=== PATIENT | female | born 1935 | race Caucasian/White ===

== ENCOUNTER 2018-07-18 12:15 | Outpatient (RCR) | payer MEDICARE, SELFPAY ==
--- NOTE | 2018-04-25 14:23 | PT.OIE ---
Current Diagnoses Urge incontinence (04/25/18) Past Surgical History History of cataract removal with insertion of prosthetic lens (10/26/15) History of cystoscopy History of knee replacement Status post arthroscopy Status post colonoscopy Status post dilation and curettage Status post vaginal hysterectomy Provider Visit Care Team Role Provider Type Chastity Roque DO Family Provider Physician Primary Care Provider Specialty: Family Practice Address: [address] [place] [address], [id number] Email: [email or web address] Sukumar Torres MD Attending Provider Non-Staff Specialty: Urology Address: [address] [place] [address], [id number] Email: Physical Therapy Initial Evaluation PT-OP-A Visit Information Start: 04/25/18 13:52 Freq: Status: Active Protocol: Document 04/25/18 12:15 [facility] (Rec: 04/25/18 14:23 [facility] [email or web address]) Out-Patient Physical Therapy Visit Information Visit Information Visit Type Initial Evaluation Visit Start Time 12:15 Visit Stop Time 13:00 Total Visit Minutes 45 Visit Number 1 Number of SUPPORT ANALYST Visits 0 Evaluation Information Evaluation Date 04/25/18 PT-OP-B Current Condition Start: 04/25/18 13:52 Freq: Status: Active Protocol: Document 04/25/18 12:15 [facility] (Rec: 04/25/18 14:23 [facility] [email or web address]) Current Condition History of Current Condition Onset Date initially 20 years ago Current Complaints conplaints of urinary incontinence constant leakage and sudden urge to void History of Current Condition Chelo is a 82 year old female who began having symptoms of urinary incontinence 20 years ago. She reports she has previously undergone PT with good success for her urinary symptoms but that was some time ago and she has since stopped doing her exercises. She reports she had a right knee replacement in october 2017. A month following her knee replacement she had emergency surgery for a large impacted kidney stone. She had a stent put in for 2 weeks following removal of the stone. Since that time symptoms may have worsened. She reports c/o constant leakage and she wears heavy duty pads. She can change her pads up to 6 times per day it depends on the day. She wakes 3 times per night to void. Past history includes osteoporosis, partial hysterectomy in her 40's, hx of [place]. Chelo currently does silver sneakers 2 times per week. Treatment Goals Patient/Caregiver Goals The treatment goals include decreasing urinary incontinence Current Functional Impairments (Reported) Functional Limitations- Other At this time Chelo is performing all ADL's. She is having to stop and change her pads throughout the day PT-OP-I Pelvic Floor Start: 04/25/18 13:52 Freq: Status: Active Protocol: Document 04/25/18 12:15 [facility] (Rec: 04/25/18 14:23 [facility] [email or web address]) Pelvic Floor Assessment Urine Pelvic Floor Surgery No Urinary Symptoms Urge Sensation Incomplete Emptying Leakage Cause Urge Leaks Per Day constant leakage Voiding Frequency 5-10 times per day Nocturia yes, 3 times per night Pads Used In 24 Hours up to 6 pads per day Urine Pad Type Depends Pelvic Clock Pelvic Clock 12-3 Atrophy Pelvic Clock 3-6 Atrophy Pelvic Clock 6-9 Atrophy Pelvic Clock 9-12 Atrophy SEMG (uV) Baseline 1.0 Recruitment Pattern Good Relaxation Good Holding Fair Stability of Hold Fair SEMG Stability of Rest Good Contraction Ability Voluntary Contraction Weak Voluntary Relaxation Weak Manual Muscle Testing Left 3 Manual Muscle Testing Right 3 Manual Muscle Testing Anterior 3 Manual Muscle Testing Posterior 3 Muscle Endurance (Seconds) 6 PT-OP-M Strength Start: 04/25/18 13:52 Freq: Status: Active Protocol: Document 04/25/18 12:15 [facility] (Rec: 04/25/18 14:23 [facility] [email or web address]) Hip Strength Hip Manual Muscle Testing Left Abduction 4 Good External Rotation 4 Good Right Abduction 3+ Fair+ External Rotation 3+ Fair+ PT-OP-Q Treatments Start: 04/25/18 13:52 Freq: Status: Active Protocol: Document 04/25/18 12:15 [facility] (Rec: 04/25/18 14:23 [facility] [email or web address]) Therapeutic Exercises Supine Exercises 2 Supine Exercise Name isometric ball squeeze with pelvic floor contraction Side bilateral Reps/Minutes 2 x 10 reps 1 Supine Exercise Name pelvic floor long holds Side bilateral Reps/Minutes 10 second hold 10 second relaxation 2 xms per day PT-OP-T Assessment and Plan Start: 04/25/18 13:52 Freq: Status: Active Protocol: Document 04/25/18 12:15 [facility] (Rec: 04/25/18 14:23 [facility] [email or web address]) Physical Therapy Assessment Rehab Potential Rehabilitation Potential Good Evaluation Complexity Number of Personal Factors/Comorbidities 0 Number of Body Systems Impaired 1-2 Clinical Presentation at Evaluation Stable Impairments Impairments Strength Tone Other Impairments urinary leakage Goals Three Impairment Urge incontinence symptoms Short Term Goal (STG) Chelo is educated on fully emptying her bladder when voiding, bladder retraining, and urge deference technique to help reduce urge incontinence symptoms STG Duration 5 weeks Two Impairment Decreased pelvic floor strength Resident Associate Goal (LTG) Improve pelvic floor strength with MMT and on EMG biofeedback for improved support of the bladder LTG Duration 8 weeks One Impairment Urinary leakage that is constant, Chelo is changing her pads up to 6 xms/day Resident Associate Goal (LTG) Chelo reports a decrease in urinary incontinence and is changing her pad 0-1 time per day LTG Duration 8 weeks Assessment Summary Assessment Chelo presents to physical therapy with symptoms of urinary incontinence. She notes at times she has urgency but other times she is leaking without any warning throughout the day. With examination today Chelo is able to facilitate all parts of her levator ani however her contractions are shakey and she lacks endurance. She is also weak in her hip musculature which may be contributing to her symptoms. I started her today with EMG biofeedback for pelvic floor strengthening and she tolerated this well. She is a good candidate for PT. Physical Therapy Plan Frequency and Duration Frequency of Treatment 1x/Week Duration of Treatment 8 weeks Plan of Care Start Date 04/25/18 Plan of Care End Date 06/20/18 Therapeutic Interventions Therapeutic Interventions Home Exercise Program Neuromuscular Re-education Self-Care/Home Management Therapeutic Exercises Modalities Biofeedback Next Visit Focus/Plan Next Note Type Treatment Note Next Visit Plan begin adding hip strengthening to Chelo's HEP
--- NOTE | 2018-05-08 11:58 | PT.OTN ---
Current Diagnoses Urge incontinence (05/08/18) Physical Therapy Treatment Note PT-OP-A Visit Information Start: 04/25/18 13:52 Freq: Status: Active Protocol: Document 05/08/18 09:52 [facility] (Rec: 05/08/18 09:56 [email or web address] Out-Patient Physical Therapy Visit Information Visit Information Visit Type Treatment Note Visit Start Time 09:00 Visit Stop Time 09:45 Total Visit Minutes 45 Visit Number 2 PT-OP-B Current Condition Start: 04/25/18 13:52 Freq: Status: Active Protocol: Document 04/25/18 12:15 [facility] (Rec: 04/25/18 14:23 [email or web address] Current Condition History of Current Condition Onset Date initially 20 years ago Current Complaints conplaints of urinary incontinence constant leakage and sudden urge to void History of Current Condition Chelo is a 82 year old female who began having symptoms of urinary incontinence 20 years ago. She reports she has previously undergone PT with good success for her urinary symptoms but that was some time ago and she has since stopped doing her exercises. She reports she had a right knee replacement in october 2017. A month following her knee replacement she had emergency surgery for a large impacted kidney stone. She had a stent put in for 2 weeks following removal of the stone. Since that time symptoms may have worsened. She reports c/o constant leakage and she wears heavy duty pads. She can change her pads up to 6 times per day it depends on the day. She wakes 3 times per night to void. Past history includes osteoporosis, partial hysterectomy in her 40's, hx of [place]. Chelo currently does silver sneakers 2 times per week. Treatment Goals Patient/Caregiver Goals The treatment goals include decreasing urinary incontinence Current Functional Impairments (Reported) Functional Limitations- Other At this time Chelo is performing all ADL's. She is having to stop and change her pads throughout the day PT-OP-C Subjective Start: 04/25/18 13:52 Freq: Status: Active Protocol: Document 05/08/18 09:52 [facility] (Rec: 05/08/18 09:56 [email or web address] OP-PT Subjective Patient Comments Patient Comments Chelo Spicer reports she wakes up a great deal at night and notes that she is going through more pads at night than she is during the day PT-OP-I Pelvic Floor Start: 04/25/18 13:52 Freq: Status: Active Protocol: Document 04/25/18 12:15 [facility] (Rec: 04/25/18 14:23 [facility] [email or web address]) Pelvic Floor Assessment Urine Pelvic Floor Surgery No Urinary Symptoms Urge Sensation Incomplete Emptying Leakage Cause Urge Leaks Per Day constant leakage Voiding Frequency 5-10 times per day Nocturia yes, 3 times per night Pads Used In 24 Hours up to 6 pads per day Urine Pad Type Depends Pelvic Clock Pelvic Clock 12-3 Atrophy Pelvic Clock 3-6 Atrophy Pelvic Clock 6-9 Atrophy Pelvic Clock 9-12 Atrophy SEMG (uV) Baseline 1.0 Recruitment Pattern Good Relaxation Good Holding Fair Stability of Hold Fair SEMG Stability of Rest Good Contraction Ability Voluntary Contraction Weak Voluntary Relaxation Weak Manual Muscle Testing Left 3 Manual Muscle Testing Right 3 Manual Muscle Testing Anterior 3 Manual Muscle Testing Posterior 3 Muscle Endurance (Seconds) 6 PT-OP-M Strength Start: 04/25/18 13:52 Freq: Status: Active Protocol: Document 04/25/18 12:15 [facility] (Rec: 04/25/18 14:23 [email or web address]) Hip Strength Hip Manual Muscle Testing Left Abduction 4 Good External Rotation 4 Good Right Abduction 3+ Fair+ External Rotation 3+ Fair+ PT-OP-Q Treatments Start: 04/25/18 13:52 Freq: Status: Active Protocol: Document 05/08/18 09:52 [facility] (Rec: 05/08/18 09:56 [email or web address]) Therapeutic Exercises Supine Exercises 5 Supine Exercise Name quick contractions of the pelvic floor 4 Supine Exercise Name quadraped TA isolation Comments inhale relax exhale contract 3 Supine Exercise Name roll outs with therabanc 2 Supine Exercise Name isometric ball squeeze with pelvic floor contraction Side bilateral Reps/Minutes 2 x 10 reps 1 Supine Exercise Name pelvic floor long holds Side bilateral Reps/Minutes 10 second hold 10 second relaxation 2 xms per day Self-Care/Home Management Treatment Education Patient Education Home Exercise Program Other Education education on elevating legs at night and wearing compression stockings to reduce fluid retention during the day and decrease night time voiding PT-OP-T Assessment and Plan Start: 04/25/18 13:52 Freq: Status: Active Protocol: Document 05/08/18 09:52 [facility] (Rec: 05/08/18 11:56 [email or web address]) Physical Therapy Assessment Assessment Summary Assessment I discussed with Chelo about trying compression stockings as well as elevating her feet prior to bedtime to try and reduce any fluid retention and improve her ability to stay dry at night Physical Therapy Plan Frequency and Duration Frequency of Treatment 1x/Week Duration of Treatment 8 weeks Plan of Care Start Date 04/25/18 Plan of Care End Date 06/20/18 Therapeutic Interventions Therapeutic Interventions Home Exercise Program Neuromuscular Re-education Self-Care/Home Management Therapeutic Exercises Modalities Biofeedback Next Visit Focus/Plan Next Note Type Treatment Note Next Visit Plan progress exercises as Chelo can tolerate
--- NOTE | 2018-05-16 13:52 | PT.OTN ---
Current Diagnoses Urge incontinence (05/16/18) Physical Therapy Treatment Note PT-OP-A Visit Information Start: 04/25/18 13:52 Freq: Status: Active Protocol: Document 05/08/18 09:52 [facility] (Rec: 05/08/18 09:56 [facility] [email or web address]) Out-Patient Physical Therapy Visit Information Visit Information Visit Type Treatment Note Visit Start Time 09:00 Visit Stop Time 09:45 Total Visit Minutes 45 Visit Number 2 PT-OP-B Current Condition Start: 04/25/18 13:52 Freq: Status: Active Protocol: Document 04/25/18 12:15 [facility] (Rec: 04/25/18 14:23 [facility] [email or web address]) Current Condition History of Current Condition Onset Date initially 20 years ago Current Complaints conplaints of urinary incontinence constant leakage and sudden urge to void History of Current Condition Chelo is a 82 year old female who began having symptoms of urinary incontinence 20 years ago. She reports she has previously undergone PT with good success for her urinary symptoms but that was some time ago and she has since stopped doing her exercises. She reports she had a right knee replacement in october 2017. A month following her knee replacement she had emergency surgery for a large impacted kidney stone. She had a stent put in for 2 weeks following removal of the stone. Since that time symptoms may have worsened. She reports c/o constant leakage and she wears heavy duty pads. She can change her pads up to 6 times per day it depends on the day. She wakes 3 times per night to void. Past history includes osteoporosis, partial hysterectomy in her 40's, hx of [place]. Chelo currently does silver sneakers 2 times per week. Treatment Goals Patient/Caregiver Goals The treatment goals include decreasing urinary incontinence Current Functional Impairments (Reported) Functional Limitations- Other At this time Chelo is performing all ADL's. She is having to stop and change her pads throughout the day PT-OP-C Subjective Start: 04/25/18 13:52 Freq: Status: Active Protocol: Document 05/16/18 13:47 [facility] (Rec: 05/16/18 13:51 [facility] [email or web address]) OP-PT Subjective Patient Comments Patient Comments Chelo Spicer reports she is voiding better now and is also trying to relax and take her time with voiding to completely empty PT-OP-I Pelvic Floor Start: 04/25/18 13:52 Freq: Status: Active Protocol: Document 04/25/18 12:15 [facility] (Rec: 04/25/18 14:23 [facility] [email or web address]) Pelvic Floor Assessment Urine Pelvic Floor Surgery No Urinary Symptoms Urge Sensation Incomplete Emptying Leakage Cause Urge Leaks Per Day constant leakage Voiding Frequency 5-10 times per day Nocturia yes, 3 times per night Pads Used In 24 Hours up to 6 pads per day Urine Pad Type Depends Pelvic Clock Pelvic Clock 12-3 Atrophy Pelvic Clock 3-6 Atrophy Pelvic Clock 6-9 Atrophy Pelvic Clock 9-12 Atrophy SEMG (uV) Baseline 1.0 Recruitment Pattern Good Relaxation Good Holding Fair Stability of Hold Fair SEMG Stability of Rest Good Contraction Ability Voluntary Contraction Weak Voluntary Relaxation Weak Manual Muscle Testing Left 3 Manual Muscle Testing Right 3 Manual Muscle Testing Anterior 3 Manual Muscle Testing Posterior 3 Muscle Endurance (Seconds) 6 PT-OP-M Strength Start: 04/25/18 13:52 Freq: Status: Active Protocol: Document 04/25/18 12:15 [facility] (Rec: 04/25/18 14:23 [facility] [email or web address]) Hip Strength Hip Manual Muscle Testing Left Abduction 4 Good External Rotation 4 Good Right Abduction 3+ Fair+ External Rotation 3+ Fair+ PT-OP-Q Treatments Start: 04/25/18 13:52 Freq: Status: Active Protocol: Document 05/16/18 13:47 [facility] (Rec: 05/16/18 13:51 [facility] [email or web address]) Therapeutic Exercises Supine Exercises 7 Supine Exercise Name diaphragmatic breathing 6 Supine Exercise Name pelvic clock 5 Supine Exercise Name quick contractions of the pelvic floor 4 Supine Exercise Name quadraped TA isolation Comments inhale relax exhale contract 3 Supine Exercise Name roll outs with therabanc 2 Supine Exercise Name isometric ball squeeze with pelvic floor contraction Side bilateral Reps/Minutes 2 x 10 reps 1 Supine Exercise Name pelvic floor long holds Side bilateral Reps/Minutes 10 second hold 10 second relaxation 2 xms per day Other Exercises 1 Other Exercise Name cat cow Reps/Minutes 10 reps Self-Care/Home Management Treatment Education Patient Education Home Exercise Program Other Education urge deference technique and bladder retraining education PT-OP-T Assessment and Plan Start: 04/25/18 13:52 Freq: Status: Active Protocol: Document 05/16/18 13:47 [facility] (Rec: 05/16/18 13:51 [facility] [email or web address]) Physical Therapy Assessment Assessment Summary Assessment improving max contraction of the pelvic floor and has a good handle of her exercises Physical Therapy Plan Frequency and Duration Frequency of Treatment 1x/Week Duration of Treatment 8 weeks Plan of Care Start Date 04/25/18 Plan of Care End Date 06/20/18 Therapeutic Interventions Therapeutic Interventions Home Exercise Program Neuromuscular Re-education Self-Care/Home Management Therapeutic Exercises Modalities Biofeedback Next Visit Focus/Plan Next Note Type Treatment Note Next Visit Plan progress exercises as Chelo can tolerate
--- NOTE | 2018-05-24 17:33 | PT.OTN ---
Current Diagnoses Urge incontinence (05/23/18) Physical Therapy Treatment Note PT-OP-A Visit Information Start: 04/25/18 13:52 Freq: Status: Active Protocol: Document 05/23/18 17:26 [facility] (Rec: 05/24/18 17:33 [facility] [email or web address]) Out-Patient Physical Therapy Visit Information Visit Information Visit Type Treatment Note Visit Start Time 12:15 Visit Stop Time 01:00 Total Visit Minutes 45 Visit Number 3 PT-OP-B Current Condition Start: 04/25/18 13:52 Freq: Status: Active Protocol: Document 04/25/18 12:15 [facility] (Rec: 04/25/18 14:23 [facility] [email or web address]) Current Condition History of Current Condition Onset Date initially 20 years ago Current Complaints conplaints of urinary incontinence constant leakage and sudden urge to void History of Current Condition Chelo is a 82 year old female who began having symptoms of urinary incontinence 20 years ago. She reports she has previously undergone PT with good success for her urinary symptoms but that was some time ago and she has since stopped doing her exercises. She reports she had a right knee replacement in october 2017. A month following her knee replacement she had emergency surgery for a large impacted kidney stone. She had a stent put in for 2 weeks following removal of the stone. Since that time symptoms may have worsened. She reports c/o constant leakage and she wears heavy duty pads. She can change her pads up to 6 times per day it depends on the day. She wakes 3 times per night to void. Past history includes osteoporosis, partial hysterectomy in her 40's, hx of [place]. Chelo currently does silver sneakers 2 times per week. Treatment Goals Patient/Caregiver Goals The treatment goals include decreasing urinary incontinence Current Functional Impairments (Reported) Functional Limitations- Other At this time Chelo is performing all ADL's. She is having to stop and change her pads throughout the day PT-OP-C Subjective Start: 04/25/18 13:52 Freq: Status: Active Protocol: Document 05/23/18 17:26 [facility] (Rec: 05/24/18 17:33 [facility] [email or web address]) OP-PT Subjective Patient Comments Patient Comments Chelo Spicer reports she feels as if she is doing a little better now during the day but still experiencing night time leakage PT-OP-I Pelvic Floor Start: 04/25/18 13:52 Freq: Status: Active Protocol: Document 04/25/18 12:15 [facility] (Rec: 04/25/18 14:23 [facility] [email or web address]) Pelvic Floor Assessment Urine Pelvic Floor Surgery No Urinary Symptoms Urge Sensation Incomplete Emptying Leakage Cause Urge Leaks Per Day constant leakage Voiding Frequency 5-10 times per day Nocturia yes, 3 times per night Pads Used In 24 Hours up to 6 pads per day Urine Pad Type Depends Pelvic Clock Pelvic Clock 12-3 Atrophy Pelvic Clock 3-6 Atrophy Pelvic Clock 6-9 Atrophy Pelvic Clock 9-12 Atrophy SEMG (uV) Baseline 1.0 Recruitment Pattern Good Relaxation Good Holding Fair Stability of Hold Fair SEMG Stability of Rest Good Contraction Ability Voluntary Contraction Weak Voluntary Relaxation Weak Manual Muscle Testing Left 3 Manual Muscle Testing Right 3 Manual Muscle Testing Anterior 3 Manual Muscle Testing Posterior 3 Muscle Endurance (Seconds) 6 PT-OP-M Strength Start: 04/25/18 13:52 Freq: Status: Active Protocol: Document 04/25/18 12:15 [facility] (Rec: 04/25/18 14:23 [facility] [email or web address]) Hip Strength Hip Manual Muscle Testing Left Abduction 4 Good External Rotation 4 Good Right Abduction 3+ Fair+ External Rotation 3+ Fair+ PT-OP-Q Treatments Start: 04/25/18 13:52 Freq: Status: Active Protocol: Document 05/23/18 17:26 [facility] (Rec: 05/24/18 17:33 [facility] [email or web address]) Therapeutic Exercises Supine Exercises 7 Supine Exercise Name diaphragmatic breathing 6 Supine Exercise Name pelvic clock 5 Supine Exercise Name quick contractions of the pelvic floor 4 Supine Exercise Name quadraped TA isolation Comments inhale relax exhale contract 2 Supine Exercise Name isometric ball squeeze with pelvic floor contraction Side bilateral Reps/Minutes 2 x 10 reps 1 Supine Exercise Name pelvic floor long holds Side bilateral Reps/Minutes 10 second hold 10 second relaxation 2 xms per day Other Exercises 1 Other Exercise Name cat cow Reps/Minutes 10 reps PT-OP-T Assessment and Plan Start: 04/25/18 13:52 Freq: Status: Active Protocol: Document 05/23/18 17:26 [facility] (Rec: 05/24/18 17:33 [facility] [email or web address]) Physical Therapy Assessment Assessment Summary Assessment improving pelvic floor facilitation, ball squeeze helps to facilitate the pelvic floor Physical Therapy Plan Frequency and Duration Frequency of Treatment 1x/Week Duration of Treatment 8 weeks Plan of Care Start Date 04/25/18 Plan of Care End Date 06/20/18 Therapeutic Interventions Therapeutic Interventions Home Exercise Program Neuromuscular Re-education Self-Care/Home Management Therapeutic Exercises Modalities Biofeedback Next Visit Focus/Plan Next Note Type Treatment Note Next Visit Plan progress exercises as Chelo can tolerate
--- NOTE | 2018-06-19 13:55 | PT.OTN ---
Current Diagnoses Urge incontinence (06/19/18) Physical Therapy Treatment Note PT-OP-A Visit Information Start: 04/25/18 13:52 Freq: Status: Active Protocol: Document 06/19/18 13:50 [facility] (Rec: 06/19/18 13:55 [facility] [email or web address]) Out-Patient Physical Therapy Visit Information Visit Information Visit Type Treatment Note Visit Start Time 01:00 Visit Stop Time 01:45 Total Visit Minutes 45 Visit Number 4 PT-OP-B Current Condition Start: 04/25/18 13:52 Freq: Status: Active Protocol: Document 04/25/18 12:15 [facility] (Rec: 04/25/18 14:23 [facility] [email or web address]) Current Condition History of Current Condition Onset Date initially 20 years ago Current Complaints conplaints of urinary incontinence constant leakage and sudden urge to void History of Current Condition Micheline is a 82 year old female who began having symptoms of urinary incontinence 20 years ago. She reports she has previously undergone PT with good success for her urinary symptoms but that was some time ago and she has since stopped doing her exercises. She reports she had a right knee replacement in october 2017. A month following her knee replacement she had emergency surgery for a large impacted kidney stone. She had a stent put in for 2 weeks following removal of the stone. Since that time symptoms may have worsened. She reports c/o constant leakage and she wears heavy duty pads. She can change her pads up to 6 times per day it depends on the day. She wakes 3 times per night to void. Past history includes osteoporosis, partial hysterectomy in her 40's, hx of [place]. Micheline currently does silver sneakers 2 times per week. Treatment Goals Patient/Caregiver Goals The treatment goals include decreasing urinary incontinence Current Functional Impairments (Reported) Functional Limitations- Other At this time Micheline is performing all ADL's. She is having to stop and change her pads throughout the day PT-OP-C Subjective Start: 04/25/18 13:52 Freq: Status: Active Protocol: Document 06/19/18 13:50 [facility] (Rec: 06/19/18 13:55 [facility] [email or web address]) OP-PT Subjective Patient Comments Patient Comments Micheline Spicer reports she is frustrated as her night time symptoms are still there. She is leaking quite a bit at night. PT-OP-I Pelvic Floor Start: 04/25/18 13:52 Freq: Status: Active Protocol: Document 04/25/18 12:15 [facility] (Rec: 04/25/18 14:23 [facility] [email or web address]) Pelvic Floor Assessment Urine Pelvic Floor Surgery No Urinary Symptoms Urge Sensation Incomplete Emptying Leakage Cause Urge Leaks Per Day constant leakage Voiding Frequency 5-10 times per day Nocturia yes, 3 times per night Pads Used In 24 Hours up to 6 pads per day Urine Pad Type Depends Pelvic Clock Pelvic Clock 12-3 Atrophy Pelvic Clock 3-6 Atrophy Pelvic Clock 6-9 Atrophy Pelvic Clock 9-12 Atrophy SEMG (uV) Baseline 1.0 Recruitment Pattern Good Relaxation Good Holding Fair Stability of Hold Fair SEMG Stability of Rest Good Contraction Ability Voluntary Contraction Weak Voluntary Relaxation Weak Manual Muscle Testing Left 3 Manual Muscle Testing Right 3 Manual Muscle Testing Anterior 3 Manual Muscle Testing Posterior 3 Muscle Endurance (Seconds) 6 PT-OP-M Strength Start: 04/25/18 13:52 Freq: Status: Active Protocol: Document 04/25/18 12:15 [facility] (Rec: 04/25/18 14:23 [facility] [email or web address]) Hip Strength Hip Manual Muscle Testing Left Abduction 4 Good External Rotation 4 Good Right Abduction 3+ Fair+ External Rotation 3+ Fair+ PT-OP-Q Treatments Start: 04/25/18 13:52 Freq: Status: Active Protocol: Document 06/19/18 13:50 [facility] (Rec: 06/19/18 13:55 [facility] [email or web address]) Therapeutic Exercises Supine Exercises 5 Supine Exercise Name quick contractions of the pelvic floor 3 Supine Exercise Name roll outs with therabanc 2 Supine Exercise Name isometric ball squeeze with pelvic floor contraction Side bilateral Reps/Minutes 2 x 10 reps 1 Supine Exercise Name pelvic floor long holds Side bilateral Reps/Minutes 10 second hold 10 second relaxation 2 xms per day Self-Care/Home Management Treatment Education Patient Education Home Exercise Program Other Education urge deference technique and bladder retraining education PT-OP-T Assessment and Plan Start: 04/25/18 13:52 Freq: Status: Active Protocol: Document 06/19/18 13:50 [facility] (Rec: 06/19/18 13:55 [facility] [email or web address]) Physical Therapy Assessment Assessment Summary Assessment worked a great deal on urge deference technique today with micheline. A pelvic floor re- examination was done today and she is showing improved facilitation of the levator ani. Endurance is still a limiting factor for her. She has alsdo been doing her exercises sitting and I advised her to do them laying in supine Physical Therapy Plan Frequency and Duration Frequency of Treatment 1x/Week Duration of Treatment 8 weeks Plan of Care Start Date 04/25/18 Plan of Care End Date 06/20/18 Therapeutic Interventions Therapeutic Interventions Home Exercise Program Neuromuscular Re-education Self-Care/Home Management Therapeutic Exercises Modalities Biofeedback Next Visit Focus/Plan Next Note Type Treatment Note Next Visit Plan progress exercises as Micheline can tolerate
--- NOTE | 2018-06-28 16:44 | PT.OTN ---
Current Diagnoses Urge incontinence (06/27/18) Physical Therapy Treatment Note PT-OP-A Visit Information Start: 04/25/18 13:52 Freq: Status: Active Protocol: Document 06/27/18 12:15 [facility] (Rec: 06/28/18 16:44 [facility] [email or web address]) Out-Patient Physical Therapy Visit Information Visit Information Visit Type Progress Note Visit Start Time 12:15 Visit Stop Time 01:00 Total Visit Minutes 45 Visit Number 5 Evaluation Information Evaluation Date 04/25/18 PT-OP-B Current Condition Start: 04/25/18 13:52 Freq: Status: Active Protocol: Document 04/25/18 12:15 [facility] (Rec: 04/25/18 14:23 [facility] [email or web address]) Current Condition History of Current Condition Onset Date initially 20 years ago Current Complaints conplaints of urinary incontinence constant leakage and sudden urge to void History of Current Condition Chelo is a 82 year old female who began having symptoms of urinary incontinence 20 years ago. She reports she has previously undergone PT with good success for her urinary symptoms but that was some time ago and she has since stopped doing her exercises. She reports she had a right knee replacement in october 2017. A month following her knee replacement she had emergency surgery for a large impacted kidney stone. She had a stent put in for 2 weeks following removal of the stone. Since that time symptoms may have worsened. She reports c/o constant leakage and she wears heavy duty pads. She can change her pads up to 6 times per day it depends on the day. She wakes 3 times per night to void. Past history includes osteoporosis, partial hysterectomy in her 40's, hx of [place]. Chelo currently does silver sneakers 2 times per week. Treatment Goals Patient/Caregiver Goals The treatment goals include decreasing urinary incontinence Current Functional Impairments (Reported) Functional Limitations- Other At this time Chelo is performing all ADL's. She is having to stop and change her pads throughout the day PT-OP-C Subjective Start: 04/25/18 13:52 Freq: Status: Active Protocol: Document 06/27/18 12:15 [facility] (Rec: 06/28/18 16:44 [facility] [email or web address]) OP-PT Subjective Patient Comments Patient Comments Chelo Spicer reports coffee really affects her symptoms of leakage. She has minimized her coffee and this has really helped. She only had one wet pad during the night PT-OP-I Pelvic Floor Start: 04/25/18 13:52 Freq: Status: Active Protocol: Document 04/25/18 12:15 [facility] (Rec: 04/25/18 14:23 [facility] [email or web address]) Pelvic Floor Assessment Urine Pelvic Floor Surgery No Urinary Symptoms Urge Sensation Incomplete Emptying Leakage Cause Urge Leaks Per Day constant leakage Voiding Frequency 5-10 times per day Nocturia yes, 3 times per night Pads Used In 24 Hours up to 6 pads per day Urine Pad Type Depends Pelvic Clock Pelvic Clock 12-3 Atrophy Pelvic Clock 3-6 Atrophy Pelvic Clock 6-9 Atrophy Pelvic Clock 9-12 Atrophy SEMG (uV) Baseline 1.0 Recruitment Pattern Good Relaxation Good Holding Fair Stability of Hold Fair SEMG Stability of Rest Good Contraction Ability Voluntary Contraction Weak Voluntary Relaxation Weak Manual Muscle Testing Left 3 Manual Muscle Testing Right 3 Manual Muscle Testing Anterior 3 Manual Muscle Testing Posterior 3 Muscle Endurance (Seconds) 6 PT-OP-M Strength Start: 04/25/18 13:52 Freq: Status: Active Protocol: Document 04/25/18 12:15 [facility] (Rec: 04/25/18 14:23 [facility] [email or web address]) Hip Strength Hip Manual Muscle Testing Left Abduction 4 Good External Rotation 4 Good Right Abduction 3+ Fair+ External Rotation 3+ Fair+ PT-OP-Q Treatments Start: 04/25/18 13:52 Freq: Status: Active Protocol: Document 06/27/18 12:15 [facility] (Rec: 06/28/18 16:44 [facility] [email or web address]) Therapeutic Exercises Supine Exercises 9 Supine Exercise Name templates for eccentric control and coordination 8 Supine Exercise Name pelvic floor quick contractions 7 Supine Exercise Name diaphragmatic breathing 6 Supine Exercise Name pelvic clock 5 Supine Exercise Name quick contractions of the pelvic floor 4 Supine Exercise Name quadraped TA isolation Comments inhale relax exhale contract 3 Supine Exercise Name roll outs with therabanc 2 Supine Exercise Name isometric ball squeeze with pelvic floor contraction Side bilateral Reps/Minutes 2 x 10 reps 1 Supine Exercise Name pelvic floor long holds Side bilateral Reps/Minutes 10 second hold 10 second relaxation 2 xms per day Other Exercises 1 Other Exercise Name cat cow Reps/Minutes 10 reps PT-OP-T Assessment and Plan Start: 04/25/18 13:52 Freq: Status: Active Protocol: Document 06/27/18 12:15 [facility] (Rec: 06/28/18 16:44 [facility] [email or web address]) Physical Therapy Assessment Assessment Summary Assessment Chelo Spicer has been seen for 5 visits in PT. She is just now noticing that her symptoms of leakage are decreasing especially with decreasing bladder irritant. She is showing an improvement in pelvic floor strength and would benefit from continued PT Physical Therapy Plan Frequency and Duration Frequency of Treatment 1x/Week Duration of Treatment 8 weeks Plan of Care Start Date 06/20/18 Plan of Care End Date 08/15/18 Therapeutic Interventions Therapeutic Interventions Home Exercise Program Neuromuscular Re-education Self-Care/Home Management Therapeutic Exercises Modalities Biofeedback Next Visit Focus/Plan Next Note Type Treatment Note Next Visit Plan progress exercises as Chelo can tolerate
--- NOTE | 2018-06-28 16:45 | PT.OPPOC ---
Current Diagnoses Urge incontinence (06/27/18) Provider Visit Care Team Role Provider Type Chastity Roque DO Family Provider Physician Primary Care Provider Specialty: Family Practice Address: [address] [place] [address], [id number] Email: [email or web address] Sukumar Torres MD Attending Provider Non-Staff Specialty: Urology Address: [address] [place] [address], [id number] Email: Plan Of Care PT-OP-T Assessment and Plan Start: 04/25/18 13:52 Freq: Status: Active Protocol: Document 06/27/18 12:15 [facility] (Rec: 06/28/18 16:44 [facility] [email or web address]) Physical Therapy Assessment Assessment Summary Assessment Chelo Spicer has been seen for 5 visits in PT. She is just now noticing that her symptoms of leakage are decreasing especially with decreasing bladder irritant. She is showing an improvement in pelvic floor strength and would benefit from continued PT Physical Therapy Plan Frequency and Duration Frequency of Treatment 1x/Week Duration of Treatment 8 weeks Plan of Care Start Date 06/20/18 Plan of Care End Date 08/15/18 Therapeutic Interventions Therapeutic Interventions Home Exercise Program Neuromuscular Re-education Self-Care/Home Management Therapeutic Exercises Modalities Biofeedback Next Visit Focus/Plan Next Note Type Treatment Note Next Visit Plan progress exercises as Chelo can tolerate Plan of Care Dates Plan of Care Start Date 06/20/18 Plan of Care End Date 08/15/18 Please Sign and Return: I have reviewed this Plan of Care and certify that the skilled therapy services above are required to meet the patient?s needs. Physician Signature Date Printed Name and Credentials Clinical Instructor Signature Printed Name and Credentials
--- NOTE | 2018-07-19 10:12 | PT.OTN ---
Current Diagnoses Urge incontinence (07/18/18) Physical Therapy Treatment Note PT-OP-A Visit Information Start: 04/25/18 13:52 Freq: Status: Active Protocol: Document 07/18/18 14:51 [facility] (Rec: 07/18/18 14:59 [facility] [email or web address]) Out-Patient Physical Therapy Visit Information Visit Information Visit Type Treatment Note Visit Start Time 12:15 Visit Stop Time 13:00 Total Visit Minutes 45 Visit Number 6 Evaluation Information Evaluation Date 04/25/18 PT-OP-B Current Condition Start: 04/25/18 13:52 Freq: Status: Active Protocol: Document 04/25/18 12:15 [facility] (Rec: 04/25/18 14:23 [facility] [email or web address]) Current Condition History of Current Condition Onset Date initially 20 years ago Current Complaints conplaints of urinary incontinence constant leakage and sudden urge to void History of Current Condition Chelo is a 82 year old female who began having symptoms of urinary incontinence 20 years ago. She reports she has previously undergone PT with good success for her urinary symptoms but that was some time ago and she has since stopped doing her exercises. She reports she had a right knee replacement in october 2017. A month following her knee replacement she had emergency surgery for a large impacted kidney stone. She had a stent put in for 2 weeks following removal of the stone. Since that time symptoms may have worsened. She reports c/o constant leakage and she wears heavy duty pads. She can change her pads up to 6 times per day it depends on the day. She wakes 3 times per night to void. Past history includes osteoporosis, partial hysterectomy in her 40's, hx of [place]. Chelo currently does silver sneakers 2 times per week. Treatment Goals Patient/Caregiver Goals The treatment goals include decreasing urinary incontinence Current Functional Impairments (Reported) Functional Limitations- Other At this time Chelo is performing all ADL's. She is having to stop and change her pads throughout the day PT-OP-C Subjective Start: 04/25/18 13:52 Freq: Status: Active Protocol: Document 07/18/18 14:51 [facility] (Rec: 07/18/18 14:59 [facility] [email or web address]) OP-PT Subjective Patient Comments Patient Comments Chelo Spicer reports she is still experiencing leakage especially at night. She has been out of town traveling and can tell with salty food that she retained fluid and voiding 4 xms at night. She will continue to do her exercises but is discouraged that she is still experiencing leakage PT-OP-I Pelvic Floor Start: 04/25/18 13:52 Freq: Status: Active Protocol: Document 04/25/18 12:15 [facility] (Rec: 04/25/18 14:23 [facility] [email or web address]) Pelvic Floor Assessment Urine Pelvic Floor Surgery No Urinary Symptoms Urge Sensation Incomplete Emptying Leakage Cause Urge Leaks Per Day constant leakage Voiding Frequency 5-10 times per day Nocturia yes, 3 times per night Pads Used In 24 Hours up to 6 pads per day Urine Pad Type Depends Pelvic Clock Pelvic Clock 12-3 Atrophy Pelvic Clock 3-6 Atrophy Pelvic Clock 6-9 Atrophy Pelvic Clock 9-12 Atrophy SEMG (uV) Baseline 1.0 Recruitment Pattern Good Relaxation Good Holding Fair Stability of Hold Fair SEMG Stability of Rest Good Contraction Ability Voluntary Contraction Weak Voluntary Relaxation Weak Manual Muscle Testing Left 3 Manual Muscle Testing Right 3 Manual Muscle Testing Anterior 3 Manual Muscle Testing Posterior 3 Muscle Endurance (Seconds) 6 PT-OP-M Strength Start: 04/25/18 13:52 Freq: Status: Active Protocol: Document 04/25/18 12:15 [facility] (Rec: 04/25/18 14:23 [facility] [email or web address]) Hip Strength Hip Manual Muscle Testing Left Abduction 4 Good External Rotation 4 Good Right Abduction 3+ Fair+ External Rotation 3+ Fair+ PT-OP-Q Treatments Start: 04/25/18 13:52 Freq: Status: Active Protocol: Document 07/18/18 14:51 [facility] (Rec: 07/18/18 14:59 [facility] [email or web address]) Therapeutic Exercises Supine Exercises 9 Supine Exercise Name templates for eccentric control and coordination 8 Supine Exercise Name pelvic floor quick contractions 6 Supine Exercise Name pelvic clock 5 Supine Exercise Name quick contractions of the pelvic floor 3 Supine Exercise Name roll outs with therabanc 2 Supine Exercise Name isometric ball squeeze with pelvic floor contraction Side bilateral Reps/Minutes 2 x 10 reps 1 Supine Exercise Name pelvic floor long holds Side bilateral Reps/Minutes 10 second hold 10 second relaxation 2 xms per day Other Exercises 1 Other Exercise Name cat cow Reps/Minutes 10 reps Manual Therapy Treatment Other Other Manual Treatments manual recheck of pelvic floor strength shows 3+/5 for all levator ani except anterior 3/ 5 PT-OP-T Assessment and Plan Start: 04/25/18 13:52 Freq: Status: Active Protocol: Document 07/18/18 14:51 [facility] (Rec: 07/18/18 14:59 [facility] [id number]) Physical Therapy Assessment Assessment Summary Assessment Chelo Spicer returns to PT after being out of town since the end of june. She is still experiencing leakage expecially at night. I have talked to her about working on regular voiding intervals every 2.5 to 3 hours during the day and elevating her feel at night prior to bed as she may be retaining fluid during the day causing her to void more at night. With pelvic floor examination today she is showing some improvement with her strength. SHe also does not seem to leak with activity. She will continue with her exercises but will discharge from PT at this time . She will follow up with urology the end of this month Physical Therapy Plan Discharge Physical Therapy Discharge Comments Discharge PT at this time and Chelo has shown independence with her home exercise program
== END 2018-10-31 14:17 ==
LOC: PHYS 12:15
PROVIDERS: Family Provider Family Medicine; PCP Family Medicine; Visit Provider Urology
DX: N39.41 Urge incontinence (principal)
CPT/HCPCS: 97110; 97161; 97535

== ENCOUNTER → 2018-09-08 07:50 | Outpatient (CLI) | payer MEDICARE, SELFPAY ==
--- NOTE | 2018-09-08 | DI.MG.S_ITS ---
BILATERAL DIGITAL SCREENING MAMMOGRAM 3D/2D WITH CAD: 09/08/2018 CLINICAL: Routine screening. Family history of breast cancer. Comparison is made to exams dated: 08/17/2017 mammogram, 08/08/2016 mammogram, and 05/21/2015 mammogram - [facility]. There are scattered fibroglandular elements in both breasts. Current study was also evaluated with a Computer Aided Detection (CAD) system. No significant masses, calcifications, or other findings are seen in either breast. There has been no significant interval change. IMPRESSION: NEGATIVE There is no mammographic evidence of malignancy. A 1 year screening mammogram is recommended. This exam was interpreted at Station ID: [id number]. NOTE: For mammograms, a report in lay terms will be sent to the patient. Approximately 15% of breast malignancies will not be visualized mammographically. In the management of a palpable breast mass, a negative mammogram must not discourage biopsy of a clinically suspicious lesion. Electronically Signed By: Suzie her/josh:09/10/2018 09:29:55 copy to: Romana Quintero letter sent: Normal Exam ACR BI-RADS Category 1: Negative [id number]
== END ==
PROVIDERS: PCP Family Medicine; Visit Provider Family Medicine
DX: Z12.31 Encounter for screening mammogram for malignant neoplasm of breast (principal); Z80.3 Family history of malignant neoplasm of breast
CPT/HCPCS: 77063; 77067

== ENCOUNTER → 2019-03-20 12:46 | Outpatient (CLI) | payer MEDICARE, SELFPAY ==
--- NOTE | 2019-03-20 12:47 | DI.CT.S_ITS ---
PROCEDURE: CT HEAD/BRAIN WO CON INDICATIONS: vertigo, double vision, headache TECHNIQUE: Noncontrast 4.5 mm thick angled axial sections acquired from the foramen magnum to the vertex, with coronal and sagittal reformats. For radiation dose reduction, the following was used: automated exposure control, adjustment of mA and/or kV according to patient size. COMPARISON: None. FINDINGS: Image quality: Excellent. CSF spaces: Basal cisterns are patent. No extra-axial fluid collections. The ventricles are symmetric in size and shape. Brain: No intracranial bleeds or masses. There is cerebral volume loss for age, with resultant ventricular and sulcal prominence. There are periventricular and deep white matter chronic small vessel ischemic changes. There is intracranial internal carotid artery atherosclerosis. Skull and face: Calvarium and visualized facial bones appear intact, without suspicious lesions. Sinuses: Visualized sinuses and mastoids are clear. IMPRESSION: 1. No acute intracranial disease process. 2. Mild, diffuse cerebral volume loss. 3. Mild periventricular and subcortical white matter chronic microvascular ischemic changes. Dictated by: Deborah Duval MD, PhD on 03/20/2019 at 13:22 Approved by: Deborah Duval MD, PhD on 03/20/2019 at 13:25
== END ==
PROVIDERS: PCP Family Medicine; Visit Provider Family Medicine
DX: R42 Dizziness and giddiness (principal); H53.2 Diplopia; R51 Headache
CPT/HCPCS: 70450

== ENCOUNTER → 2019-08-19 08:52 | Outpatient (CLI) | payer MEDICARE, SELFPAY | PROVIDERS: PCP Family Medicine; Visit Provider Physician Assistant | DX: R30.0 Dysuria (principal) | CPT/HCPCS: 87077; 87086; 87186 ==

== ENCOUNTER → 2019-09-12 11:38 | Outpatient (CLI) | payer MEDICARE, SELFPAY ==
--- NOTE | 2019-09-12 | DI.MG.S_ITS ---
BILATERAL DIGITAL SCREENING MAMMOGRAM 3D/2D WITH CAD: 09/12/2019 CLINICAL: Routine screening. Family history of breast cancer. Comparison is made to exams dated: 09/08/2018 mammogram, 08/17/2017 mammogram, 08/08/2016 mammogram, 05/21/2015 mammogram, 05/19/2014 mammogram, and 05/16/2013 mammogram - [facility]. There are scattered fibroglandular elements in both breasts. Current study was also evaluated with a Computer Aided Detection (CAD) system. No significant masses, calcifications, or other findings are seen in either breast. There has been no significant interval change. IMPRESSION: NEGATIVE There is no mammographic evidence of malignancy. A 1 year screening mammogram is recommended. This exam was interpreted at Station ID: [id number]. NOTE: For mammograms, a report in lay terms will be sent to the patient. Approximately 15% of breast malignancies will not be visualized mammographically. In the management of a palpable breast mass, a negative mammogram must not discourage biopsy of a clinically suspicious lesion. Electronically Signed By: Heide natarajan/josh:09/12/2019 12:37:10 copy to: Tacho Hampton letter sent: Normal Exam ACR BI-RADS Category 1: Negative [id number]
== END ==
PROVIDERS: PCP Family Medicine; Visit Provider Family Medicine
DX: Z12.31 Encounter for screening mammogram for malignant neoplasm of breast (principal); Z80.3 Family history of malignant neoplasm of breast
CPT/HCPCS: 77063; 77067

== ENCOUNTER → 2019-09-26 09:38 | Outpatient (CLI) | payer MEDICARE, SELFPAY | PROVIDERS: PCP Family Medicine; Visit Provider Nurse Practitioner | DX: R30.0 Dysuria (principal) | CPT/HCPCS: 87077; 87086; 87186 ==

== ENCOUNTER → 2020-05-29 10:49 | Outpatient (CLI) | payer MEDICARE, SELFPAY ==
[2020-05-29 11:03] LABS: RBC Urine None Seen (0-5/HPF)
[2020-05-29 11:59] LABS: Appearance Urine UA CLEAR; Bilirubin Urine UA NEGATIVE (NEGATIVE); Color Urine UA YELLOW; Glucose Urine UA NEGATIVE (Negative); Ketones Urine UA NEGATIVE (NEGATIVE); Leukocyte Esterase Urine UA 2+ (NEGATIVE); Nitrite Urine UA NEGATIVE (Negative); Occult Blood Urine UA NEGATIVE (Negative); Protein Urine UA NEGATIVE (Negative); Specific Gravity Urine UA 1.015 (1.000-1.035); Urobilinogen Urine UA 0.2 E.U./dL (0.2)
[2020-05-29 12:06] LABS: Bacteria Urine Many (>30); Culture Indicated Urine Specimen Cultured; WBC Urine 5-10/HPF (0-5/HPF)
== END ==
PROVIDERS: PCP Family Medicine; Referring Provider Urology; Visit Provider Urology
DX: N39.0 Urinary tract infection, site not specified (principal)
CPT/HCPCS: 81001; 87077; 87086; 87186

== ENCOUNTER 2020-06-17 09:40 | Emergency (ER) | payer MEDICARE, SELFPAY ==
[2020-06-17] VITALS (12 sets, daily range): BP systolic 132–151; BP diastolic 62–76; PULSE 54–66; RESP 15–39; TEMP 36.9; O2SAT 95–98; BMI 22.4
--- NOTE | 2020-06-17 10:04 | DI.RAD.S_ITS ---
PROCEDURE: XR CHEST 1V INDICATIONS: chest pain TECHNIQUE: One view of the chest was acquired. COMPARISON: [facility], , CHEST 2 VIEW, 02/05/2015, 11:29. FINDINGS: Surgical changes and devices: None. Lungs and pleura: Lungs are clear. No pleural effusions or pneumothorax. Mediastinum: Mediastinal contours appear normal. Heart size is normal. Bones and chest wall: No suspicious bony lesions. Overlying soft tissues appear unremarkable. IMPRESSION: Stable radiographic evaluation of the chest without acute cardiopulmonary abnormalities or focal airspace disease. There are no imaging findings to explain patient's chest pain. Dictated by: Dylan Pichardo M.D. on 06/17/2020 at 10:24 Approved by: Dylan Pichardo M.D. on 06/17/2020 at 10:24
[2020-06-17 10:14] LABS: Prothrombin Time 11.4 SECONDS (10.1-12.7)
[2020-06-17 10:16] LABS: PTT Partial Thromboplastin Tim 31 SECONDS (26.4-36.2)
[2020-06-17 10:20] LABS: Alanine Aminotransferase 22 IU/L (<35); Albumin 4.2 g/dL (3.5-5.0); Albumin Globulin Ratio 1.2 (1.0-2.8); Alkaline Phosphatase 106 U/L (38-126); Aspartate Aminotransferase 36 IU/L (14-36); Bilirubin Total 0.4 mg/dL (0.2-1.3); Blood Urea Nitrogen 19 mg/dL (7-17); Calcium 9.5 mg/dL (8.4-10.2); Carbon Dioxide 28 mmol/L (22-32); Chloride 106 mmol/L (98-107); Creatine Kinase 47 U/L (30-135); Estimated Glomerular Filt Rate > 60.0 mL/min (>60); Globulin 3.6 g/dL (1.7-4.1); Glucose 86 mg/dL (80-110); HEMOLYSIS 26 (0-50); Lipase 155 U/L (23-300); Potassium 4.2 mmol/L (3.4-5.1); Sodium 140 mmol/L (137-145); Total Protein 7.8 g/dL (6.3-8.2)
[2020-06-17] MEDS: ASPIRIN 81 MG CHEW TAB 324 MG PO (10:24)
[2020-06-17 10:31] LABS: Troponin I < 0.012 ng/mL (0.01-0.034)
--- NOTE | 2020-06-17 10:31 | ED_ITS ---
HPI - Chest Pain General Chief Complaint: Chest Pain Stated Complaint: chest pain for 3 hours Time Seen by Provider: 06/17/20 10:31 History of Present Illness HPI narrative: 84-year-old woman with distant history of myocardial infarction, hypertension who presents with 3 hours of right sided lateral chest pain relieved with pressure up against the ribcage. She describes no palpitations, no fevers, no cough. No upper abdominal pain or flank pain. She does note that she has had some suprapubic tenderness and urinary frequency is currently being treated with Septra for UTI. Also complains of vaginal prolapse and has gynecologic follow-up scheduled soon. Related Data Previous Rx's Medication Instructions Recorded nitroglycerin [Nitrostat] 0.4 mg SUBLINGUAL PRN #25 05/23/13 Disabled Parking Permit ea #1 10/24/17 aspirin 81 mg tablet,delayed 81 mg PO DAILY #90 tab 05/02/18 release cholecalciferol (vitamin D3) 50 2,000 unit PO DAILY #90 cap 05/02/18 mcg (2,000 unit) capsule multivitamin 1 tab PO DAILY #90 tab 05/02/18 losartan 50 mg tablet 50 mg PO QDAY #90 tab 02/10/20 amlodipine 5 mg tablet See Rx Instructions PO QDAY #90 tab 06/05/20 sulfamethoxazole 800 1 tab PO BID 7 Days #14 tab 06/15/20 mg-trimethoprim 160 mg tablet Allergies Allergy/AdvReac Type Severity Reaction Status Date / Time neomycin Allergy Mild ITCHING Verified 06/15/20 10:39 Penicillins Allergy Mild RASH, GI Verified 06/15/20 10:39 UPSET morphine AdvReac Mild INTOLERANT Verified 06/15/20 10:39 Review of Systems Review of Systems Narrative: Pertinent positive and negative findings as per HPI Remainder of review of systems is otherwise unremarkable for Constitutional: Fevers, chills, weakness ENT: No sore throat, neck pain, ear pain CV: palpitations, dyspnea on exertion Respiratory: Cough, wheeze, dyspnea GI: Nausea, vomiting, diarrhea, change in bowel habits, black or bloody stools MS: Muscle weakness, numbness, joint swelling or warmth Skin: Rashes, nonhealing lesions Neuro: Syncope, dizziness, tingling Patient History Medical History Chicken pox (Resolved ~194) Coronary artery disease (Chronic ~2005) Headache (Chronic ~2009) Hearing deficit (Chronic) History of urinary incontinence (Chronic ~1999) Hyperlipidemia (Chronic) Hypertension (Chronic ~1979) Mumps (Resolved ~1944) Osteoarthritis (Chronic ~1999) Osteoporosis (Chronic) Ruptured tympanic membrane (Chronic ~1989) Skin cancer (Chronic ~2006) Tinnitus (Chronic ~1979) Vision disorder (Chronic) Surgical History History of cataract removal with insertion of prosthetic lens (10/26/15) History of cystoscopy (~2012) History of eye surgery (Resolved ~1979) History of knee replacement (~2017) History of vein stripping (Resolved ~1977) Status post arthroscopy (~01/2013) Status post colonoscopy (~12/2003) Status post dilation and curettage (~1957) Status post vaginal hysterectomy (~1978) Ureteral stone (Resolved ~2014) Family History Father No problems noted. Grandfather No problems noted. Grandmother No problems noted. Mother No problems noted. Grandfather No problems noted. Grandmother No problems noted. Social History marital status: household members: none lives independently: Yes caregiver/support person: Yes (son and daughter in law live across the street ) housing: house occupational status: unemployed (retired) Smoking Status: Former smoker alcohol intake: never substance use type: does not use Smoking Status: Former smoker alcohol intake frequency: 0-2 drinks per day Substance Use Type: does not use Exam Narrative Exam Narrative: General: Healthy appearing, in no acute distress. Able to give a complete and coherent history. Well-nourished well-developed HEENT: Moist mucous membranes, normal sclera with reactive pupils, Neck: No JVD, supple Respiratory: Lungs are clear to auscultation, no wheezing no rales no rhonchi. Full and symmetrical air movement. Tenderness right mid axillary area without any skin changes no underlying rub and pain is slightly relieved with external pressure Cardiac: Regular rate and rhythm no murmurs no bruits Abdomen: Soft nontender good bowel tones, no flank pain Skin: Warm and dry, no rashes Neurologic: Grossly neurologically intact with no obvious asymmetries or abnormalities Extremities: No trauma, well perfused Psych: Cooperative, appropriate insight and affect Initial Vital Signs Initial Vital Signs: Vital Signs Temperature 98.5 F 06/17/20 09:54 Pulse Rate 63 06/17/20 09:54 Respiratory Rate 16 06/17/20 09:54 Blood Pressure 144/66 H 06/17/20 09:54 Pulse Oximetry 98 06/17/20 09:54 Course Orders Ordered: ED Orders 06/17/20 10:00 Complete Blood Count AUTO DIFF Stat Comprehensive Metabolic Panel Stat Lipase Stat Partial Thromboplastin Time Stat Prothrombin Time INR Stat Troponin & CK Cardiac Panel Stat 06/17/20 10:04 XR chest 1V Stat EKG-12 Lead Stat Discontinued Medications Aspirin (Aspirin Chew) 324 mg PO NOW ONE Stop: 06/17/20 10:05 Last Admin: 06/17/20 10:24 Dose: 324 mg Documented by: YURI Ketorolac Tromethamine (Toradol) 15 mg IV NOW ONE Stop: 06/17/20 11:08 Last Admin: 06/17/20 11:21 Dose: 15 mg Documented by: HUGO Vital Signs Vital signs: Vital Signs - 8 hr 06/17/20 09:54 06/17/20 10:04 06/17/20 10:15 Temperature 98.5 F Pulse Rate 63 62 64 Respiratory Rate 16 20 21 Blood Pressure 144/66 H 132/63 Pulse Oximetry 98 98 98 06/17/20 10:30 06/17/20 10:45 06/17/20 11:24 Temperature Pulse Rate 58 L 65 63 Respiratory Rate 23 26 H 21 Blood Pressure 137/62 Pulse Oximetry 06/17/20 11:25 06/17/20 11:30 06/17/20 11:45 Temperature Pulse Rate 62 66 63 Respiratory Rate 28 H 39 H 20 Blood Pressure 151/76 H Pulse Oximetry 95 98 98 MDM - Chest Pain Medical Records Data Attestation: I reviewed the patient's medical records. Lab Data Attestation: I reviewed the patient's lab results. Result diagrams: 06/17/20 10:00 06/17/20 10:00 Labs: Lab Results 06/17/20 06/17/20 06/17/20 Range/Units 10:00 10:00 10:00 WBC 8.4 (4.5-11.0) X10^3/uL RBC 4.24 (4.0-5.2) X10^6/uL Hgb 12.7 (12.0-16.0) g/dL Hct 38.6 (36-46) % MCV 91.2 (80-100) fL MCH 30.0 (26-34) PG MCHC 32.9 (30-36) % RDW 13.4 (11.6-14.8) % Plt Count 381 (150-400) X10^3/uL Neut % (Auto) 71.1 (50-75) % Lymph % (Auto) 19.8 L (25-40) % Gonzales % (Auto) 7.7 (3-14) % Eos % (Auto) 0.5 L (2-4) % Baso % (Auto) 0.9 (0-2) % Neut # (Auto) 5900 (9198-5606) /uL Lymph # (Auto) 1700 (8421-5440) /uL Gonzales # (Auto) 600 (0-900) /uL Eos # (Auto) 0 (0-450) /uL Baso # (Auto) 100 (0-100) /uL PT 11.4 (10.1-12.7) SECONDS INR 1.0 (0.9-1.3) APTT 31 (26.4-36.2) SECONDS Sodium 140 (137-145) mmol/L Potassium 4.2 (3.4-5.1) mmol/L Chloride 106 (98-107) mmol/L Carbon Dioxide 28 (22-32) mmol/L BUN 19 H (7-17) mg/dL Creatinine 0.73 (0.52-1.04) mg/dL Estimated GFR > 60.0 (>60) mL/min BUN/Creatinine Ratio 26.0 H (6-22) Glucose 86 (80-110) mg/dL Calcium 9.5 (8.4-10.2) mg/dL Total Bilirubin 0.4 (0.2-1.3) mg/dL AST 36 (14-36) IU/L ALT 22 (<35) IU/L Alkaline Phosphatase 106 (38-126) U/L Total Creatine Kinase 47 (30-135) U/L CK-MB (CK-2) TNP CK-MB (CK-2) Rel Index TNP Troponin I < 0.012 (0.01-0.034) ng/mL Total Protein 7.8 (6.3-8.2) g/dL Albumin 4.2 (3.5-5.0) g/dL Globulin 3.6 (1.7-4.1) g/dL Albumin/Globulin Ratio 1.2 (1.0-2.8) Lipase 155 (23-300) U/L Imaging Data Chest x-ray: Radiologist's Impression: FINDINGS: Surgical changes and devices: None. Lungs and pleura: Lungs are clear. No pleural effusions or pneumothorax. Mediastinum: Mediastinal contours appear normal. Heart size is normal. Bones and chest wall: No suspicious bony lesions. Overlying soft tissues appear unremarkable. IMPRESSION: Stable radiographic evaluation of the chest without acute cardi opulmonary abnormalities or focal airspace disease. There are no imaging findings to explain patient's chest pain. Dictated by: Dylan Pichardo M.D. on 06/17/2020 at 10:24 ECG Data Attestation: I personally reviewed and interpreted this ECG as follows: Interpretation: Sinus rhythm at a rate of 62 Normal axis, normal intervals Nonspecific ST T wave changes without any evidence of acute ischemia MDM Narrative Medical decision making narrative: 84-year-old woman who presents with 3 hours of right-sided chest/mid axillary pain. X-ray does not suggest pneumothorax her underlying infiltrate. Labs are reassuring. No underlying cardiac etiology is noted. Pain is improved with Toradol. At this point do not suspect acute cor onary syndrome, pulmonary embolism, sepsis or pneumonia. Most likely diagnosis is musculoskeletal chest pain she is reassured and discharged home Discharge Plan Departure Prescriptions: No Action sulfamethoxazole-trimethoprim [Bactrim DS] 800-160 mg tablet 1 tab PO BID 7 Days Qty: 14 RF: 0 nitroglycerin [Nitrostat] 0.4 MG tablet, sublingual 0.4 mg Sublingual PRN Qty: 25 RF: 12 Disabled Parking Permit Qty: 1 RF: 0 losartan 50 mg tablet 50 mg PO QDAY Qty: 90 RF: 3 amlodipine [Norvasc] 5 mg tablet See Rx Instructions PO QDAY Qty: 90 RF: 0 cholecalciferol (vitamin D3) 2,000 unit capsule 2,000 unit PO DAILY Qty: 90 RF: 0 aspirin 81 mg tablet,delayed release (DR/EC) 81 mg PO DAILY Qty: 90 RF: 0 Hold Instructions: pt stopped due to bruising multivitamin [Multiple Vitamins] tablet 1 tab PO DAILY Qty: 90 RF: 0
[2020-06-17 10:49] LABS: Add Manual Diff / Slide Review NO; Basophils Absolute Auto 100 /uL (0-100); Basophils Percent Auto 0.9 % (0-2); Eosinophils Absolute Auto 0 /uL (0-450); Eosinophils Percent Auto 0.5 % (2-4); Hematocrit 38.6 % (36-46); Hemoglobin 12.7 g/dL (12.0-16.0); Lymphocytes Absolute Auto 1700 /uL (1100-4500); Lymphocytes Percent Auto 19.8 % (25-40); Mean Corpuscular HGB Conc 32.9 % (30-36); Mean Corpuscular Volume 91.2 fL (80-100); Monocytes Absolute Auto 600 /uL (0-900); Monocytes Percent Auto 7.7 % (3-14); Neutrophils Absolute Auto 5900 /uL (1500-7000); Neutrophils Percent Auto 71.1 % (50-75); Platelet Count 381 X10^3/uL (150-400); Red Blood Cell Count 4.24 X10^6/uL (4.0-5.2); Red Cell Distribution Width 13.4 % (11.6-14.8); White Blood Cell Count 8.4 X10^3/uL (4.5-11.0)
[2020-06-17] MEDS: KETOROLAC 60 MG/2 ML VIAL 15 MG IV (11:21)
== END 2020-06-17 12:32 | disposition home or self-care (01) ==
PROVIDERS: Emergency Provider Emergency Medicine; PCP Family Medicine; Referring Provider Emergency Medicine
DX: R07.89 Other chest pain (principal); I25.2 Old myocardial infarction; I10 Essential (primary) hypertension
CPT/HCPCS: 36415; 71045; 80053; 82550; 83690; 84484; 85025; 85610; 85730; 93005; 93010; 96374; 99284; J1885

== ENCOUNTER → 2020-06-24 08:22 | Outpatient (CLI) | payer MEDICARE, SELFPAY ==
--- NOTE | 2020-06-24 | DI.RAD.S_ITS ---
PROCEDURE: XR ABDOMEN 1V INDICATIONS: KIDNEY STONE TECHNIQUE: One view of the abdomen acquired. COMPARISON: [facility], CR, XR ABDOMEN 1 VIEW, 09/05/2019, 13:48. FINDINGS: Surgical changes and devices: Spinal stimulator is noted. Bowel: Bowel gas pattern is normal. Significant stool is present. Soft tissues: No suspicious abdominal calcifications. Visualized liver shadow appears enlarged. Bones: No suspicious bony lesions. Mild rightward curvature is present within the lumbar spine with apex at L2. IMPRESSION: Significant stool consistent with constipation. No calcifications are noted overlying the renal shadows. Dictated by: Clara Lopez M.D. on 06/24/2020 at 14:39 Approved by: Clara Lopez M.D. on 06/24/2020 at 15:00
== END ==
PROVIDERS: PCP Family Medicine; Referring Provider Urology; Visit Provider Urology
DX: N20.0 Calculus of kidney (principal)
CPT/HCPCS: 74018

== ENCOUNTER → 2020-07-20 10:12 | Outpatient (CLI) | payer MEDICARE, SELFPAY ==
[2020-07-20 11:26] LABS: Appearance Urine UA CLOUDY; Bilirubin Urine UA NEGATIVE (NEGATIVE); Color Urine UA YELLOW; Glucose Urine UA NEGATIVE (Negative); Ketones Urine UA NEGATIVE (NEGATIVE); Leukocyte Esterase Urine UA 3+ (NEGATIVE); Nitrite Urine UA POSITIVE (Negative); Occult Blood Urine UA TRACE-INTACT (Negative); Protein Urine UA NEGATIVE (Negative); Urobilinogen Urine UA 0.2 E.U./dL (0.2)
[2020-07-20 12:00] LABS: Amorphous Sediment Urine 2+; Bacteria Urine Many (>30); Culture Indicated Urine Specimen Cultured; RBC Urine 10-30/HPF (0-5/HPF); Squamous Epithelial Cell Urine 1-5 /HPF (0-5/HPF); WBC Urine >100/HPF (0-5/HPF)
== END ==
PROVIDERS: PCP Family Medicine; Referring Provider Obstetrics & Gynecology; Visit Provider Obstetrics & Gynecology
DX: R30.0 Dysuria (principal); R35.0 Frequency of micturition; R39.15 Urgency of urination; R82.90 Unspecified abnormal findings in urine
CPT/HCPCS: 81001; 87077; 87086; 87186

== ENCOUNTER → 2020-10-24 08:14 | Outpatient (CLI) | payer MEDICARE, SELFPAY ==
--- NOTE | 2020-10-24 08:16 | DI.MG.S_ITS ---
BILATERAL DIGITAL SCREENING MAMMOGRAM 3D/2D WITH CAD: 10/24/2020 CLINICAL: Routine screening. Family history of breast cancer. Comparison is made to exams dated: 09/12/2019 mammogram, 09/08/2018 mammogram, and 08/17/2017 mammogram - [facility]. There are scattered fibroglandular elements in both breasts. Current study was also evaluated with a Computer Aided Detection (CAD) system. No significant masses, calcifications, or other findings are seen in either breast. There has been no significant interval change. IMPRESSION: NEGATIVE There is no mammographic evidence of malignancy. A 1 year screening mammogram is recommended. This exam was interpreted at Station ID: [id number]. NOTE: For mammograms, a report in lay terms will be sent to the patient. Approximately 15% of breast malignancies will not be visualized mammographically. In the management of a palpable breast mass, a negative mammogram must not discourage biopsy of a clinically suspicious lesion. Electronically Signed By: Dylan martin/josh:10/26/2020 07:19:02 copy to: Tacho Hampton letter sent: Normal Exam ACR BI-RADS Category 1: Negative [id number]
== END ==
PROVIDERS: PCP Family Medicine; Referring Provider Family Medicine; Visit Provider Family Medicine
DX: Z12.31 Encounter for screening mammogram for malignant neoplasm of breast (principal); Z80.3 Family history of malignant neoplasm of breast
CPT/HCPCS: 77063; 77067

== ENCOUNTER → 2020-10-27 07:36 | Outpatient (CLI) | payer MEDICARE, SELFPAY ==
[2020-10-27 07:44] LABS: RBC Urine None Seen (0-5/HPF)
[2020-10-27 08:38] LABS: Appearance Urine UA SL CLOUDY; Bilirubin Urine UA NEGATIVE (NEGATIVE); Color Urine UA YELLOW; Glucose Urine UA NEGATIVE (Negative); Ketones Urine UA NEGATIVE (NEGATIVE); Leukocyte Esterase Urine UA 3+ (NEGATIVE); Nitrite Urine UA NEGATIVE (Negative); Occult Blood Urine UA TRACE-LYSED (Negative); Protein Urine UA NEGATIVE (Negative); Specific Gravity Urine UA 1.015 (1.000-1.035); Urobilinogen Urine UA 0.2 E.U./dL (0.2)
[2020-10-27 08:46] LABS: Bacteria Urine Many (>30); Culture Indicated Urine Cult Not Indicated; Squamous Epithelial Cell Urine 5-10 /HPF (0-5/HPF); WBC Urine 10-30/HPF (0-5/HPF)
== END ==
PROVIDERS: PCP Family Medicine; Referring Provider Family Medicine; Visit Provider Physician Assistant Medical
DX: Z87.440 Personal history of urinary (tract) infections (principal)
CPT/HCPCS: 81001

== ENCOUNTER → 2020-11-10 15:53 | Outpatient (CLI) | payer MEDICARE, SELFPAY ==
[2020-11-10 16:15] LABS: COVID19 -Nasal RAPID Negative (Negative)
== END ==
PROVIDERS: PCP Family Medicine; Visit Provider Physician Assistant
DX: R53.83 Other fatigue (principal); Z20.822 Contact with and (suspected) exposure to COVID-19
CPT/HCPCS: 87635

== ENCOUNTER → 2020-12-23 14:31 | Outpatient (CLI) | payer MEDICARE, SELFPAY ==
[2020-12-23 15:25] LABS: Appearance Urine UA CLOUDY; Bilirubin Urine UA NEGATIVE (NEGATIVE); Color Urine UA YELLOW; Glucose Urine UA NEGATIVE (Negative); Ketones Urine UA NEGATIVE (NEGATIVE); Leukocyte Esterase Urine UA 2+ (NEGATIVE); Nitrite Urine UA POSITIVE (Negative); Occult Blood Urine UA 3+ (Negative); Protein Urine UA TRACE (Negative); Urobilinogen Urine UA 0.2 E.U./dL (0.2)
[2020-12-23 15:28] LABS: pH Urine UA 6.5 (4.5-8.0)
[2020-12-23 15:33] LABS: Bacteria Urine Many (>30); Culture Indicated Urine Specimen Cultured; RBC Urine 10-30/HPF (0-5/HPF); WBC Urine 1-5/HPF (0-5/HPF)
== END ==
PROVIDERS: PCP Family Medicine; Referring Provider Physician Assistant Medical; Visit Provider Physician Assistant Medical
DX: Z87.440 Personal history of urinary (tract) infections (principal); R35.0 Frequency of micturition
CPT/HCPCS: 81001; 87077; 87086; 87186

== ENCOUNTER → 2021-01-01 14:58 | Outpatient (CLI) | payer MEDICARE, SELFPAY | PROVIDERS: PCP Family Medicine; Visit Provider Physician Assistant | DX: R30.0 Dysuria (principal) | CPT/HCPCS: 87077; 87086; 87186 ==

== ENCOUNTER → 2021-05-26 09:07 | Outpatient (CLI) | payer MEDICARE, SELFPAY ==
--- NOTE | 2021-05-26 | DI.RAD.S_ITS ---
PROCEDURE: XR LUMBAR SPINE 2-3V INDICATIONS: CHRONIC LOW BACK PAIN TECHNIQUE: 3 views of the lumbar spine were acquired. COMPARISON: [facility], CR, XR ABDOMEN 1V, 06/24/2020, 7:33. FINDINGS: Bones: 5 [id number] vertebrae are present. There is dextroscoliotic bony alignment, moderate in severity, centered at the thoracolumbar junction. No vertebral body compression fractures. No suspicious bony lesions. [id number] degenerative disc disease along the lumbosacral spine best seen over the lower half and there is moderate facet osteoarthritis from L3 inferiorly with likelihood of secondary spinal and foraminal stenosis. A right sided electronic control device is again seen leading towards the area beneath the inferior aspect of the left sacroiliac joint. Soft tissues: Overlying bowel gas pattern is normal. No suspicious soft tissue calcifications. IMPRESSION: Chronic moderate levoscoliosis centered at the thoracolumbar junction with moderate degenerative disc disease and facet osteoarthritis most prominent over the lower half of the lumbosacral spine with likelihood of spinal and foraminal stenosis in that area as a result. Electrode/electronic control device stable over time. Dictated by: Yobani Landis M.D. on 05/26/2021 at 10:50 Approved by: Yobani Landis M.D. on 05/26/2021 at 10:52
== END ==
PROVIDERS: PCP Family Medicine; Referring Provider Chiropractor; Visit Provider Chiropractor
DX: M54.5 Low back pain (principal); M41.85 Other forms of scoliosis, thoracolumbar region; M51.36 Other intervertebral disc degeneration, lumbar region; M47.816 Spondylosis without myelopathy or radiculopathy, lumbar region; G89.29 Other chronic pain
CPT/HCPCS: 72100

== ENCOUNTER → 2021-09-03 15:52 | Outpatient (CLI) | payer MEDICARE, SELFPAY ==
--- NOTE | 2021-09-03 15:53 | DI.RAD.S_ITS ---
PROCEDURE: XR HAND LT MIN 3V INDICATIONS: hand pain TECHNIQUE: 3 views of the hand(s) acquired. COMPARISON: [facility], CR, XR WRIST 1 OR 2 VIEWS LEFT, 09/02/2021, 10:40. FINDINGS: A splint is present, obscuring fine bony detail. Bones: There is increased, moderate displacement of the comminuted distal radial fracture with articular surface extension. No change in mildly displaced ulnar styloid base fracture. Soft tissues: No suspicious soft tissue calcifications. IMPRESSION: Increased displacement of distal radial fracture. Dictated by: Jose D Christopher M.D. on 09/03/2021 at 16:15 Approved by: Jose D Christopher M.D. on 09/03/2021 at 16:16
== END ==
PROVIDERS: PCP Family Medicine; Referring Provider Nurse Practitioner Family; Visit Provider Nurse Practitioner Family
DX: S52.502A Unspecified fracture of the lower end of left radius, initial encounter for closed fracture (principal); M79.642 Pain in left hand; X58.XXXA Exposure to other specified factors, initial encounter
CPT/HCPCS: 73130

== ENCOUNTER → 2021-11-18 15:01 | Outpatient (CLI) | payer MEDICARE, SELFPAY ==
--- NOTE | 2021-11-18 15:03 | DI.RAD.S_ITS ---
PROCEDURE: XR HIP W PEL IF DONE RT 2V INDICATIONS: hip pain TECHNIQUE: AP pelvis with lateral view(s) of the right hip(s). COMPARISON: None. FINDINGS: Bones: No fractures or dislocations. Moderate bilateral hip joint osteoarthritic changes are seen. No evidence of avascular necrosis of femoral head. Pelvic ring appears intact. No suspicious bony lesions. Soft tissues: The visualized bowel gas pattern is normal. No suspicious soft tissue calcifications. Pain management device is seen projecting over right iliac crest with lead seen projecting in left pelvic region. IMPRESSION: Symmetric appearing moderate bilateral hip joint osteoarthritis. No pelvic or hip fracture. No evidence of avascular necrosis. Dictated by: Lc Prado M.D. on 11/18/2021 at 15:51 Approved by: Lc Prado M.D. on 11/18/2021 at 15:51
== END ==
PROVIDERS: PCP Family Medicine; Referring Provider Nurse Practitioner Family; Visit Provider Nurse Practitioner Family
DX: M16.0 Bilateral primary osteoarthritis of hip (principal); M25.559 Pain in unspecified hip
CPT/HCPCS: 73502

== ENCOUNTER 2022-03-02 13:50 | Emergency (ER) | payer MEDICARE, SELFPAY ==
[2022-03-02 14:14] VITALS: BP 183/80; PULSE 65; RESP 18; TEMP 36.6; O2SAT 100; BMI 25.1
--- NOTE | 2022-03-02 15:36 | ED.EPISTAXIS ---
HPI - Epistaxis <ANTOINE Capellan - Last Filed: 03/02/22 20:53> General Chief complaint: Nasal Problem Stated complaint: Nose bleed wont stop x 30 mins Time Seen by Provider: 03/02/22 15:05 Source: patient Mode of arrival: Wheelchair History of Present Illness HPI Narrative: This is a healthy 86-year-old female who is not on anticoagulants who presents to the emergency department complaining left-sided epistaxis which started couple hours ago and did not stop bleeding for approximately 30 minutes. Patient came to the emergency department because she was worried about how much bleeding she had of her left nare. Patient states that she has been sneezing a little bit more frequently lately, denies any history of seasonal allergies, denies any sore throat, cough, shortness of breath, or symptoms of illness. She denies any significant dry air or injury to her nose. She does have a history of hypertension. Related Data Previous Rx's Medication Instructions Recorded Disabled Parking Permit ea #1 10/24/17 cholecalciferol (vitamin D3) 50 2,000 unit PO DAILY #90 cap 05/02/18 mcg (2,000 unit) capsule multivitamin (Multiple Vitamins) 1 tab PO DAILY #90 tab 05/02/18 CMP Estradiol vaginal cream 0.0125% See Rx Instructions .ROUTE 06/24/20 .COMPLEX #30 gram amlodipine 5 mg tablet 5 mg PO DAILY #90 tab 08/24/21 losartan 50 mg tablet See Rx Instructions .ROUTE 10/25/21 .COMPLEX #90 tab Allergies Allergy/AdvReac Type Severity Reaction Status Date / Time neomycin Allergy Mild ITCHING Verified 09/06/21 10:23 Penicillins Allergy Mild RASH, GI Verified 09/06/21 10:23 UPSET morphine AdvReac Mild INTOLERANT Verified 09/06/21 10:23 Review of Systems <ANTOINE Capellan - Last Filed: 03/02/22 20:53> Review of Systems Narrative: General: denies fever, chills, malaise, sweats, fatigue Head/Neck: denies headache, neck pain, dizziness Nose: Left-sided nose bleed which started prior to arrival and blood for approximately 30 minutes before it stopped after holding it for that long Eyes: denies visual changes, eye pain Cardio: denies chest pain, palpitations, edema Respiratory: denies dyspnea, cough, orthopnea MSK: denies joint pain, muscle weakness Skin: denies rash, itching, skin lesions or other Neuro: denies numbness, tingling Patient History <ANTOINE Capellan - Last Filed: 03/02/22 20:53> Medical History Atrophic vulvovaginitis Chicken pox (~194) Coronary artery disease (~2005) Headache (~2009) Hearing deficit History of urinary incontinence (~1999) Hyperlipidemia Hypertension (~1979) Mumps (~1944) Osteoarthritis (~1999) Osteoporosis Ruptured tympanic membrane (~1989) Skin cancer (~2006) Tinnitus (~1979) Vision disorder Surgical History History of cataract removal with insertion of prosthetic lens (10/26/15) History of cystoscopy (~2012) History of eye surgery (~1979) History of knee replacement (~2017) History of vein stripping (~1977) Status post arthroscopy (~01/2013) Status post colonoscopy (~12/2003) Status post dilation and curettage (~1957) Status post vaginal hysterectomy (~1978) Ureteral stone (~2014) Family History Father No problems noted. Grandfather No problems noted. Grandmother No problems noted. Mother No problems noted. Grandfather No problems noted. Grandmother No problems noted. Social History marital status: household members: none lives independently: Yes caregiver/support person: Yes (son and daughter in law live across the street ) housing: house occupational status: unemployed (retired) Smoking Status: Former smoker alcohol intake: never substance use type: does not use Smoking Status: Former smoker alcohol intake frequency: 0-2 drinks per day Substance Use Type: does not use Exam <ANTOINE Capellan - Last Filed: 03/02/22 20:53> Narrative Exam Narrative: Independently reviewed vitals signs and nursing notes. General: cooperative, comfortable, in no acute distress, well groomed Head: atraumatic, symmetrical facial expressions Nose: Nasal clamp removed, no current bleeding from left [place], encourage patient to blow her nose, she did this, with a light, I could see the area there anterior left near where she has been bleeding, there is a small vessel there which is exposed, does not appear to bleed bleeding currently. Richardrin was sprayed upper nose, observed her without a clamp on for approximately 30 minutes, no further bleeding, had patient blow her nose again, no further bleeding. Neck: supple Eyes: equal round and reactive, EOMI, conjunctiva normal Nose: nares patent, no rhinorrhea Mouth/Throat: moist mucus membranes MSK: moves all extremities, neurovascularly intact, no weakness, normal tone Skin: brisk capillary refill, no rash, no erythema Neuro: normal speech and cognition, A&O x3 Psych: mental status is grossly normal, congruent mood, normal affect, pleasant and cooperative Initial Vital Signs Initial Vital Signs: Vital Signs Temperature 97.8 F 03/02/22 14:14 Pulse Rate 65 03/02/22 14:14 Respiratory Rate 18 03/02/22 14:14 Blood Pressure 183/80 H 03/02/22 14:14 Pulse Oximetry 100 03/02/22 14:14 <Deisi Sanders DO - Last Filed: 03/03/22 20:07> Initial Vital Signs Initial Vital Signs: Vital Signs Temperature 97.8 F 03/02/22 14:14 Pulse Rate 65 03/02/22 14:14 Respiratory Rate 18 03/02/22 14:14 Blood Pressure 183/80 H 03/02/22 14:14 Pulse Oximetry 100 03/02/22 14:14 Course <ANTOINE Capellan - Last Filed: 03/02/22 20:53> Orders Ordered: Discontinued Medications Oxymetazoline HCl (Oxymetazoline Nasal [place] 15 Ml) 2 sprays NASAL NOW ONE Stop: 03/02/22 15:37 Last Admin: 03/02/22 16:15 Dose: 2 sprays Documented by: RAYRAY Vital Signs Vital signs: Vital Signs - 8 hr 03/02/22 14:14 03/02/22 16:37 Temperature 97.8 F Pulse Rate 65 80 Respiratory Rate 18 18 Blood Pressure 183/80 H 155/70 H Pulse Oximetry 100 98 <Deisi Sanders DO - Last Filed: 03/03/22 20:07> Orders Ordered: Discontinued Medications Oxymetazoline HCl (Oxymetazoline Nasal [place] 15 Ml) 2 sprays NASAL NOW ONE Stop: 03/02/22 15:37 Last Admin: 03/02/22 16:15 Dose: 2 sprays Documented by: SANTOSOTEM Vital Signs Vital signs: Vital Signs - 8 hr 03/02/22 14:14 03/02/22 16:37 Temperature 97.8 F Pulse Rate 65 80 Respiratory Rate 18 18 Blood Pressure 183/80 H 155/70 H Pulse Oximetry 100 98 MDM - Epistaxis <ANTOINE Capellan - Last Filed: 03/02/22 20:53> MDM Narrative Medical decision making narrative: This is a pleasant 86-year-old female who is not on any anticoagulants who presents to the emergency department with epistaxis of her left near which started just prior to arrival and blood for approximately 30 minutes despite her attempts at stopping it. She was wearing a nasal clean for a long period of time while waiting to be seen in the emergency department, on my exam, removed the clamp, no further bleeding, encouraged patient's of lower nose out, she has a small area on the left anterior septum which is excoriated and is likely where the bleeding was coming from. I applied two sprays of Afrin to this area, had patient weighed approximately 30 minutes, she did not have any further bleeding, encouraged her to blow start her nose, we looked at it again, no further bleeding. Encourage patient to use a humidifier, she states that she has been sneezing more frequently likely related to the dry air. Encouraged to use a saline nasal spray to help keep her nasal mucosa moist and she was sent home with Afrin in case it starts bleeding again later. She was given strict return precautions, encouraged to follow-up with her primary care provider as needed, or to return to the emergency department for any worsening. Patient is appropriate and amenable to discharge home. Vital signs are stable on repeat examination is unremarkable. Patient has been informed of results. Patient has been given strict return to ER precautions for any new or worsening symptoms. Patient understands to follow up closely with outpatient providers as instructed. Patient understands plan and agrees to discharge home. All questions and concerns answered at this time. Discharge Plan Departure Patient Disposition: Home Clinical Impression: Acute anterior epistaxis Instructions: DI for Nosebleed Activity Restrictions/Additional Instructions: *You have been diagnosed with a left sided nose bleed, also called epistaxis. This is from an exposed vessel that likely got irritated when your nose was dry or with the sneezing or blowing her nose or something similar. They are superficial vein thick bleed quite heavily when they start. If this happens again, please blowout your nose, spray Afrin up your nare that is bleeding and use the nasal clamp over the soft part of your nose to clamp it shut. Please use a humidifier or saline nasal spray if you are having nasal dryness or allergy symptoms. Please follow-up with your primary doctor if this is becoming a regular thing, and come back to the emergency department if you cannot get the bleeding to stop. Thank you for trusting us with your care, I hope you have a good rest of your day. *What to do: *Please continue to take your regular medications as directed. [ ] New medication prescriptions sent to your pharmacy: [ ] [ ] New medication written as a paper prescription [x ] No new medications given *Please follow up with your primary care provider in 2-3 days, call for an appointment. Let them know you were seen in the Emergency Department and that we asked that you be seen for follow-up. We will electronically transmit a record of today's note if your PCP is in our system *If you do not have a primary care provider please contact [phone] to establish care with one of the [facility] primary care providers. *Return to Emergency Department if you should have any new, worsening or concerning symptoms, such as [fever greater than 101F, chills, worsening pain, persistent vomiting or other bothersome symptoms] Prescriptions: No Action Disabled Parking Permit Qty: 1 0RF CMP Estradiol vaginal cream 0.0125% See Rx Instructions .ROUTE .COMPLEX Qty: 30 3RF Rx Instructions: Insert 0.5gm vaginally 2x weekly. [facility] amlodipine 5 mg tablet 5 mg PO DAILY Qty: 90 3RF losartan 50 mg tablet See Rx Instructions .ROUTE .COMPLEX Qty: 90 3RF Dose Instruction: TAKE 1 TABLET BY MOUTH EVERY DAY Rx Instructions: TAKE 1 TABLET BY MOUTH EVERY DAY cholecalciferol (vitamin D3) 2,000 unit capsule 2,000 unit PO DAILY Qty: 90 0RF multivitamin [Multiple Vitamins] tablet 1 tab PO DAILY Qty: 90 0RF Referrals: Chastity Roque DO [Primary Care Provider] - Visit Report Forms: Patient Portal/API <Deisi Sanders DO - Last Filed: 03/03/22 20:07> Cosign ED Attending Cosignature Attestation: I was immediately available in the department for consultation. Documentation has been reviewed.
[2022-03-02] MEDS: OXYMETAZOLINE NASAL SPRAY 15 ML 2 SPRAYS NASAL (16:15)
--- NOTE | 2022-03-02 16:29 | PC.NURSE ---
no bleeding noted with clamp off.
[2022-03-02 16:37] VITALS: BP 155/70; PULSE 80; RESP 18; O2SAT 98
== END 2022-03-02 16:37 | disposition home or self-care (01) ==
PROVIDERS: Emergency Provider Nurse Practitioner Critical Care Medicine; PCP Family Medicine
DX: R04.0 Epistaxis (principal); Z79.01 Long term (current) use of anticoagulants
CPT/HCPCS: 99282; A9270

== ENCOUNTER → 2022-05-02 10:20 | Outpatient (CLI) | payer MEDICARE, SELFPAY ==
[2022-05-02 11:00] LABS: Add Manual Diff / Slide Review NO; Basophils Absolute Auto 0 /uL (0-100); Basophils Percent Auto 0.5 % (0-2); Eosinophils Absolute Auto 100 /uL (0-450); Eosinophils Percent Auto 0.9 % (2-4); Hematocrit 36.4 % (36-46); Hemoglobin 12.4 g/dL (12.0-16.0); Lymphocytes Absolute Auto 1900 /uL (1100-4500); Lymphocytes Percent Auto 30.7 % (25-40); Mean Corpuscular HGB Conc 33.9 % (30-36); Mean Corpuscular Hemoglobin 30.3 PG (26-34); Mean Corpuscular Volume 89.3 fL (80-100); Monocytes Absolute Auto 500 /uL (0-900); Monocytes Percent Auto 8.5 % (3-14); Neutrophils Absolute Auto 3800 /uL (1500-7000); Neutrophils Percent Auto 59.4 % (50-75); Platelet Count 326 X10^3/uL (150-400); Red Blood Cell Count 4.08 X10^6/uL (4.0-5.2); Red Cell Distribution Width 13.3 % (11.6-14.8); White Blood Cell Count 6.3 X10^3/uL (4.5-11.0)
[2022-05-02 11:44] LABS: Alanine Aminotransferase 19 IU/L (<35); Albumin 3.7 g/dL (3.5-5.0); Albumin Globulin Ratio 1.1 (1.0-2.8); Alkaline Phosphatase 94 U/L (38-126); Aspartate Aminotransferase 28 IU/L (14-36); Bilirubin Total 0.3 mg/dL (0.2-1.3); Blood Urea Nitrogen 19 mg/dL (7-17); Calcium 9.1 mg/dL (8.4-10.2); Carbon Dioxide 30 mmol/L (22-32); Chloride 107 mmol/L (98-107); Estimated Glomerular Filt Rate > 60 mL/min (>60); Globulin 3.3 g/dL (1.7-4.1); Glucose 145 mg/dL (80-110); HEMOLYSIS < 15 (0-50); Potassium 3.5 mmol/L (3.4-5.1); Sodium 142 mmol/L (137-145)
== END ==
PROVIDERS: PCP Family Medicine; Referring Provider Family Medicine; Visit Provider Family Medicine
DX: I10 Essential (primary) hypertension (principal); R04.0 Epistaxis
CPT/HCPCS: 36415; 80053; 85025

== ENCOUNTER 2022-08-10 00:37 | Emergency (ER) | payer MEDICARE, SELFPAY ==
[2022-08-10 01:15] VITALS: BP 198/97; PULSE 88; RESP 18; TEMP 36.7; O2SAT 99
[2022-08-10 01:27] LABS: Add Manual Diff / Slide Review NO; Basophils Absolute Auto 0 /uL (0-100); Basophils Percent Auto 0.3 % (0-2); Eosinophils Absolute Auto 100 /uL (0-450); Eosinophils Percent Auto 1.7 % (2-4); Hematocrit 39.1 % (36-46); Hemoglobin 12.7 g/dL (12.0-16.0); Lymphocytes Absolute Auto 1900 /uL (1100-4500); Lymphocytes Percent Auto 22.3 % (25-40); Mean Corpuscular HGB Conc 32.6 % (30-36); Mean Corpuscular Hemoglobin 29.6 PG (26-34); Mean Corpuscular Volume 90.8 fL (80-100); Monocytes Absolute Auto 800 /uL (0-900); Monocytes Percent Auto 9.5 % (3-14); Neutrophils Absolute Auto 5600 /uL (1500-7000); Neutrophils Percent Auto 66.2 % (50-75); Platelet Count 356 X10^3/uL (150-400); Red Cell Distribution Width 13.7 % (11.6-14.8); White Blood Cell Count 8.6 X10^3/uL (4.5-11.0)
--- NOTE | 2022-08-10 01:30 | PC.NURSE ---
Report received - assumed care of pt at this time
[2022-08-10 01:45] LABS: Alanine Aminotransferase 22 IU/L (<35); Albumin 4.1 g/dL (3.5-5.0); Alkaline Phosphatase 119 U/L (38-126); Aspartate Aminotransferase 33 IU/L (14-36); Bilirubin Total 0.3 mg/dL (0.2-1.3); Blood Urea Nitrogen 20 mg/dL (7-17); Calcium 9.2 mg/dL (8.4-10.2); Carbon Dioxide 29 mmol/L (22-32); Chloride 104 mmol/L (98-107); Estimated Glomerular Filt Rate > 60 mL/min (>60); Glucose 116 mg/dL (80-110); HEMOLYSIS 18 (0-50); Lipase 76 U/L (23-300); Potassium 3.6 mmol/L (3.4-5.1); Sodium 142 mmol/L (137-145); Total Protein 8.1 g/dL (6.3-8.2)
--- NOTE | 2022-08-10 01:50 | DI.CT.S_ITS ---
PROCEDURE: CT KIDNEY URETER BLADDER (KUB) INDICATIONS: right flank pain TECHNIQUE: Axial sections were acquired from the lung bases to the pubic symphysis. Coronal and sagittal reformats were performed. For radiation dose reduction, the following was used: automated exposure control, adjustment of mA and/or kV according to patient size. COMPARISON: [facility], CT, THORAX WITH CONTRAST, 12/07/2006, 10:36. [facility], CT, THORAX WITH CONTRAST, 12/29/2006, 8:19. [facility], CT, ABDOMEN/PELVIS WITH CONTRAST, 05/27/2016, 9:28. [facility], CT, KIDNEY/ URETER/BLADDER, 02/19/2016, 17:26. [facility], CT, KIDNEY/ URETER/BLADDER, 11/20/2017, 21:43. FINDINGS: Image quality: Excellent. Lung bases: There is a 1.2 cm spiculated nodule in the left lower lobe (series 3, image 3), which has slightly increased in size and density compared to prior examinations in 2016. A 0.5 cm subpleural nodule is seen in the right middle lobe, unchanged. Small hiatal hernia. Heart: No significant findings. URINARY: Right Kidney and ureter: There is a 4 mm stone at the ureterovesical junction demonstrating CT density 591 HU. Mild hydronephrosis and hydroureter. There are multiple tiny 1-2 mm stones in the renal pelvis. Left Kidney and ureter: Tiny 1 mm calculi in renal pelvis. No ureteral stones. Extrarenal pelvis. No hydronephrosis or hydroureter. Bladder: Normal wall thickness. No stones. ABDOMEN: Liver: Unremarkable. Gallbladder: There is a calcified gallstone. Biliary ducts: Unremarkable. Pancreas: Unremarkable. Spleen: Unremarkable. Adrenal Glands: Unremarkable. Stomach and Bowel: Stomach, small bowel loops, and colon are unremarkable. Moderate amount of stool in colon. Peritoneum: No abnormal intraperitoneal fluid. No free air. Ventral Wall: No hernia. Abdominal Nodes: No enlarged retroperitoneal or mesenteric lymph nodes. Vessels: Aorta and inferior vena cava are normal in size. Moderate atherosclerotic calcifications. PELVIS: Pelvic Organs: Hysterectomy. Ovaries are not well seen. No adnexal mass. No free fluid in pelvis.. Pelvic Nodes: Unremarkable. Miscellaneous: No inguinal hernias are seen. There is a nerve stimulator with the lead in sacrum. Bones: Scoliosis and degenerative changes in lumbar spine. IMPRESSION: 1. There is a 4 mm stone at the right UVJ causing mild right hydronephrosis. 2. Tiny nonobstructive renal calculi bilaterally. 3. Cholelithiasis. 4. A 1.2 cm spiculated nodule in the left lung base. This has slightly enlarged and increased density since 2016. Slow growth suggests benign etiology but increased in density could indicate low-grade adenocarcinoma. Recommend a follow-up chest CT in 3-6 months. Alternatively, a PET-CT can be obtained. No significant discrepancy with the [facility] preliminary report. Dictated by: Andi Markham M.D. on 08/10/2022 at 9:07 Approved by: Andi Markham M.D. on 08/10/2022 at 9:23
--- NOTE | 2022-08-10 02:00 | PC.NURSE ---
Family leaving bedside - pt resting quietly in NAD - no needs voiced - PWD with respirations equal and unlabored bilaterally
[2022-08-10] MEDS: ONDANSETRON 4 MG/2 ML INJ IV (02:09)
[2022-08-10] MEDS: KETOROLAC 30 MG/ML VIAL 15 MG IV (02:10)
[2022-08-10 02:20] VITALS: PULSE 60; O2SAT 98
[2022-08-10 02:30] VITALS: BP 148/70; PULSE 60; O2SAT 95
--- NOTE | 2022-08-10 02:30 | PC.NURSE ---
Resting quietly in NAD - no needs voiced - PWD - states that she is not having pain at this time
--- NOTE | 2022-08-10 02:48 | ED_ITS ---
HPI - Abdominal Pain General Chief Complaint: Abdominal Pain Stated Complaint: POSSIBLE KIDNEY STONE Time Seen by Provider: 08/10/22 01:40 Source: patient Mode of arrival: Ambulatory History of Present Illness HPI narrative: The patient is a 87-year-old female history of hypertension and kidney stones presenting today with right flank pain. Says it started earlier radiating flank is to her abdomen but not down to her groin. She denies any hematuria. She says it comes and goes in waves. His she was feeling nauseous and seems to have subsided a little bit. His no chest pain palpitations or shortness of breath. This feels like her previous kidney stones. Related Data Previous Rx's Medication Instructions Recorded Disabled Parking Permit ea ##1 10/24/17 cholecalciferol (vitamin D3) 50 2,000 unit PO DAILY #90 caps 05/02/18 mcg (2,000 unit) capsule multivitamin (Multiple Vitamins 1 tab PO DAILY #90 tabs 05/02/18 tablet) CMP Estradiol vaginal cream 0.0125% See Rx Instructions .Route 06/24/20 .COMPLEX #30 grams amlodipine 5 mg tablet 5 mg PO DAILY #90 tabs 08/24/21 losartan 50 mg tablet See Rx Instructions .Route 10/25/21 .COMPLEX #90 tabs hydrocodone 5 mg-acetaminophen 325 1 tab PO Q6H PRN pain #10 tabs 08/10/22 mg tablet ondansetron 4 mg disintegrating 4 mg PO Q8H PRN nausea and 08/10/22 tablet vomiting #10 tabs Allergies Allergy/AdvReac Type Severity Reaction Status Date / Time neomycin Allergy Mild ITCHING Verified 03/07/22 08:31 Penicillins Allergy Mild RASH, GI Verified 03/07/22 08:31 UPSET morphine AdvReac Mild INTOLERANT Verified 03/07/22 08:31 Review of Systems Review of Systems Narrative: GENERAL: Denies chills, fatigue, malaise, fever, sweats, travel HEENT: Denies sinus pain, ear pain, sore throat, difficulty swallowing, neck pain RESPIRATORY: Denies dyspnea, cough, wheezing, hemoptysis, sputum. CARDIOVASCULAR: Denies chest pain, palpitations, orthopnea, edema GASTROINTESTINAL: See HPI : See HPI MUSCULOSKELETAL: Denies weakness, joint pain, or bony pain SKIN: No rash, no erythema, no pruritus NEUROLOGIC: Denies weakness, dizziness, headache, numbness, change in speech, confusion PSYCHIATRIC: No concerning psychosocial issues. 12 point review of systems is negative except for those stated above and HPI Patient History Medical History Atrophic vulvovaginitis Chicken pox (~1943) Coronary artery disease (~2005) Headache (~2009) Hearing deficit History of urinary incontinence (~1999) Hyperlipidemia Hypertension (~1979) Mumps (~194) Osteoarthritis (~1999) Osteoporosis Ruptured tympanic membrane (~1989) Skin cancer (~2006) Tinnitus (~1979) Vision disorder Surgical History History of cataract removal with insertion of prosthetic lens (10/26/15) History of cystoscopy (~2012) History of eye surgery (~1979) History of knee replacement (~2017) History of vein stripping (~1977) Status post arthroscopy (~01/2013) Status post colonoscopy (~12/2003) Status post dilation and curettage (~1957) Status post vaginal hysterectomy (~1978) Ureteral stone (~2014) Family History Father No problems noted. Grandfather No problems noted. Grandmother No problems noted. Mother No problems noted. Grandfather No problems noted. Grandmother No problems noted. Social History marital status: household members: none lives independently: Yes caregiver/support person: Yes (son and daughter in law live across the street ) housing: house occupational status: unemployed (retired) Smoking Status: Former smoker alcohol intake: never substance use type: does not use Smoking Status: Former smoker alcohol intake frequency: 0-2 drinks per day Substance Use Type: does not use Exam Initial Vital Signs Initial Vital Signs: Vital Signs Temperature 98.1 F 08/10/22 01:15 Pulse Rate 88 08/10/22 01:15 Respiratory Rate 18 08/10/22 01:15 Blood Pressure 198/97 H 08/10/22 01:15 Pulse Oximetry 99 08/10/22 01:15 Oxygen Delivery Method 08/10/22 01:15 GENERAL: Alert pleasant 87-year-old female appears to not feel well and in no acute distress. HEENT: Head atraumatic,EOMI, pupils reactive, face symmetric, moist mucous membranes CARDIOVASCULAR: Regular rate and rhythm without murmurs, rubs or gallops. RESPIRATORY: Breath sounds equal bilaterally, no wheezes rales or rhonchi. ABDOMEN: Soft minimal right lower no guarding or : Mild right CVA tenderness EXTREMITIES: Normal range of motion, no clubbing or edema. Neurovascularly intact NEUROLOGICAL: Alert and oriented x4.Normal gait and speech. SKIN: Warm, dry, no laceration, no petechiae, no rashes or lesions. Course Orders Ordered: ED Orders 08/10/22 01:10 Complete Blood Count AUTO DIFF Stat Comprehensive Metabolic Panel Stat Lipase Stat 08/10/22 01:15 EKG-12 Lead Stat 08/10/22 01:50 CT kidney ureter bladder (KUB) Stat 08/10/22 03:23 Urine Culture Stat Urine Microscopic Stat Discontinued Medications Hydrocodone Bitart/Acetaminophen (Hydrocodone/Acet 5/325 Prepack) 1 bottle MISC SEEINSTR ONE Stop: 08/10/22 03:13 Last Admin: 08/10/22 03:20 Dose: 1 bottle Documented By: BRIAN Ketorolac Tromethamine (Ketorolac 30 Mg/Ml Vial) 15 mg IV NOW ONE Stop: 08/10/22 01:16 Last Admin: 08/10/22 02:10 Dose: 15 mg Documented By: DRAKE Morphine Sulfate (Morphine 2 Mg/Ml Inj) 2 mg IV NOW ONE Stop: 08/10/22 01:17 Ondansetron HCl (Ondansetron 4 Mg/2 Ml Inj) 4 mg IV NOW ONE Stop: 08/10/22 01:16 Last Admin: 08/10/22 02:09 Dose: 4 mg Documented By: DRAKE Ondansetron HCl (Ondansetron 4 Mg Odt) 4 mg SL NOW ONE Stop: 08/10/22 03:13 Last Admin: 08/10/22 03:28 Dose: Not Given Documented By: LULU Ondansetron HCl (Ondansetron 4 Mg Odt Prepack) 1 bottle MISC SEEINSTR ONE Stop: 08/10/22 03:17 Last Admin: 08/10/22 03:20 Dose: 1 bottle Documented By: BRIAN Vital Signs Vital signs: Vital Signs - 8 hr 11/09/22 01:15 08/10/22 02:20 08/10/22 02:30 Temperature 98.1 F Pulse Rate 88 60 Respiratory Rate 18 Blood Pressure 198/97 H 148/70 H Pulse Oximetry 99 98 Oxygen Delivery Method Room Air 08/10/22 02:30 08/10/22 03:02 08/10/22 03:02 Temperature Pulse Rate 60 64 Respiratory Rate Blood Pressure 195/81 H Pulse Oximetry 95 99 Oxygen Delivery Method 08/10/22 03:06 08/10/22 03:06 Temperature Pulse Rate 63 Respiratory Rate Blood Pressure 173/78 H Pulse Oximetry 99 Oxygen Delivery Method MDM - Abdominal Pain Lab Data Result diagrams: 08/10/22 01:10 08/10/22 01:10 Labs: Lab Results 08/10/22 08/10/22 08/10/22 Range/Units 01:10 01:10 03:23 WBC 8.6 (4.5-11.0) X10^3/uL RBC 4.30 (4.0-5.2) X10^6/uL Hgb 12.7 (12.0-16.0) g/dL Hct 39.1 (36-46) % MCV 90.8 (80-100) fL MCH 29.6 (26-34) PG MCHC 32.6 (30-36) % RDW 13.7 (11.6-14.8) % Plt Count 356 (150-400) X10^3/uL Neut % (Auto) 66.2 (50-75) % Lymph % (Auto) 22.3 L (25-40) % [place] % (Auto) 9.5 (3-14) % Eos % (Auto) 1.7 L (2-4) % Baso % (Auto) 0.3 (0-2) % Neut # (Auto) 5600 (8373-7877) /uL Lymph # (Auto) 1900 (6521-7579) /uL [place] # (Auto) 800 (0-900) /uL Eos # (Auto) 100 (0-450) /uL Baso # (Auto) 0 (0-100) /uL Sodium 142 (137-145) mmol/L Potassium 3.6 (3.4-5.1) mmol/L Chloride 104 (98-107) mmol/L Carbon Dioxide 29 (22-32) mmol/L BUN 20 H (7-17) mg/dL Creatinine 0.80 (0.52-1.04) mg/dL Estimated GFR > 60 (>60) mL/min BUN/Creatinine Ratio 25.0 H (6-22) Glucose 116 H (80-110) mg/dL Calcium 9.2 (8.4-10.2) mg/dL Total Bilirubin 0.3 (0.2-1.3) mg/dL AST 33 (14-36) IU/L ALT 22 (<35) IU/L Alkaline Phosphatase 119 (38-126) U/L Total Protein 8.1 (6.3-8.2) g/dL Albumin 4.1 (3.5-5.0) g/dL Globulin 4.0 (1.7-4.1) g/dL Albumin/Globulin Ratio 1.0 (1.0-2.8) Lipase 76 (23-300) U/L Urine RBC 1-5/hpf D (0-5/HPF) Urine WBC 0-1/hpf (0-5/HPF) Amorphous Sediment 1+ Urine Bacteria None seen (None) Micro UA Comment * Point of care testing: Urine Dip Bedside Urine Glucose Negative Bedside Urine Bilirubin - Negative Bedside Urine Ketone - Negative Urine Specific [place] 1.010 Bedside Urine Occult Blood + Bedside Urine pH 7.0 Bedside Urine Protein - Negative Bedside Urine Urobilinogen - Negative Bedside Urine Nitrite - Negative Bedside Urine Leukocytes - Negative Esterase Imaging Data CT scan - abdomen/pelvis: Radiologist's Impression: For preliminary report 3 mm distal right ureteral stone is bladder pain generator device extending into the pelvis small nodules in lower lungs are indeterminate moderate right hydronephrosis MDM Narrative Medical decision making narrative: Patient has a history of kidney stones presents today with kidney stone like symptoms. CT confirms a 3 mm kidney stone in the distal right side. No evidence of UTI. She is noted to be mildly hypertensive but that does improve w ith time. No evidence of infection blood work is overall reassuring. At this time she would like to get on an airplane in about 12 hours in go to her grandson's he unexpectedly. She will be given pain medication nausea medication to go. Discharge Plan Departure Patient Disposition: Home Clinical Impression: Calculus of right ureter Instructions: DI for Kidney Stones Activity Restrictions/Additional Instructions: * You've been diagnosed with kidney stone * What to do: Increase fluid intake, * Please follow-up with your primary care provider in the next 2-3 days, you may require urology consultation please discuss this with -If you should have fever, or pain is uncontrolled with medication at home or any other concerning symptoms return to ER for further evaluation MEDICATIONS --> SENT TO [facility] Take Motrin 600 mg every 8 hours as needed for pain Take [place] every 6 hours if needed for severe pain Take Zofran every 4-6 hours if needed for nausea CONTROLLED SUBSTANCE DISCHARGE (Narcotoic/benzodiazepine) 1. You have been prescribed narcotic medications, it does have acetaminophen/Tylenol/paracetamol in it so do not take extra Tylenol or Tylenol containing products 2. Please understand that we cannot provide further refills of narcotics, benzodiazepines or controlled substances through the ED and her pain management will need to be through your provider. 3. While on these medications you cannot drive or operate heavy machinery. 4. You cannot sign legal documents or perform any duties such as this. 5. As long as you're taking opiate pain medications he should also be taking a stool softener such as Colace, Dulcolax, MiraLAX or prune juice, to help avoid constipation. Prescriptions: New hydrocodone-acetaminophen 5-325 mg tablet 1 tab PO Q6H PRN (Reason: pain) Qty: 10 0RF ondansetron 4 mg tablet,disintegrating 4 mg PO Q8H PRN (Reason: nausea and vomiting) Qty: 10 0RF No Action Disabled Parking Permit Qty: 1 0RF CMP Estradiol vaginal cream 0.0125% See Rx Instructions .ROUTE .COMPLEX Qty: 30 3RF Rx Instructions: Insert 0.5gm vaginally 2x weekly. [facility] amlodipine 5 mg tablet 5 mg PO DAILY Qty: 90 3RF losartan 50 mg tablet See Rx Instructions .ROUTE .COMPLEX Qty: 90 3RF Dose Instruction: TAKE 1 TABLET BY MOUTH EVERY DAY Rx Instructions: TAKE 1 TABLET BY MOUTH EVERY DAY cholecalciferol (vitamin D3) 2,000 unit capsule 2,000 unit PO DAILY Qty: 90 0RF multivitamin [Multiple Vitamins] tablet 1 tab PO DAILY Qty: 90 0RF Referrals: Chastity Roque DO [Primary Care Provider] - Visit Report Forms: Patient Portal/API
--- NOTE | 2022-08-10 02:50 | PC.NURSE ---
Ambulatory to the bathroom with steady gait - hat placed in the toilet to catch the urine for a UA
[2022-08-10 03:02] VITALS: BP 195/81; PULSE 64; O2SAT 99
[2022-08-10 03:06] VITALS: BP 173/78; PULSE 63; O2SAT 99
[2022-08-10] MEDS: ONDANSETRON 4 MG ODT PREPACK 1 BOTTLE MISC (03:20)
[2022-08-10] MEDS: HYDROCODONE/ACET 5/325 PREPACK 1 BOTTLE MISC (03:20)
[2022-08-10 03:34] LABS: Amorphous Sediment Urine 1+; Bacteria Urine None Seen; RBC Urine 1-5/HPF (0-5/HPF); WBC Urine 0-1/HPF (0-5/HPF)
== END 2022-08-10 03:45 | disposition home or self-care (01) ==
PROVIDERS: Emergency Provider Emergency Medicine; PCP Family Medicine
DX: N20.1 Calculus of ureter (principal); R11.0 Nausea
CPT/HCPCS: 36415; 74176; 80053; 81003; 81015; 83690; 85025; 87086; 93005; 96374; 96375; 99284; J1885; J2405

== ENCOUNTER → 2022-12-26 12:16 | Outpatient (CLI) | payer MEDICARE, SELFPAY | PROVIDERS: PCP Family Medicine; Visit Provider Nurse Practitioner Family | DX: R30.0 Dysuria (principal) | CPT/HCPCS: 87077; 87086; 87186 ==

== ENCOUNTER → 2023-01-02 14:54 | Outpatient (CLI) | payer MEDICARE, SELFPAY | PROVIDERS: PCP Family Medicine; Visit Provider Physician Assistant | DX: N39.0 Urinary tract infection, site not specified (principal) | CPT/HCPCS: 87077; 87086; 87186 ==

== ENCOUNTER → 2023-01-20 08:51 | Outpatient (CLI) | payer MEDICARE, SELFPAY ==
[2023-01-20 10:12] LABS: COVID-19 CEPHEID 4-PLEX PCR Negative (Negative); Influenza A - CEPHEID Flu A NEGATIVE (NEGATIVE); Influenza B - CEPHEID Flu B NEGATIVE (NEGATIVE); Respiratory Syncytial Virus Negative (Negative)
== END ==
PROVIDERS: PCP Family Medicine; Visit Provider Nurse Practitioner Family
DX: R30.0 Dysuria (principal); R52 Pain, unspecified
CPT/HCPCS: 0241U; 87077; 87086; 87186; 87210

== ENCOUNTER → 2023-02-16 15:52 | Outpatient (CLI) | payer MEDICARE, SELFPAY | PROVIDERS: PCP Family Medicine; Visit Provider Urology | DX: N39.0 Urinary tract infection, site not specified (principal); N39.41 Urge incontinence | CPT/HCPCS: 87086 ==

== ENCOUNTER → 2023-02-16 16:35 | Outpatient (CLI) | payer MEDICARE, SELFPAY ==
[2023-02-16 18:03] LABS: BUN Creatinine Ratio 26.8 (6-22); Blood Urea Nitrogen 19 mg/dL (7-17); Carbon Dioxide 30 mmol/L (22-32); Chloride 104 mmol/L (98-107); Estimated Glomerular Filt Rate > 60 mL/min (>60); Glucose 87 mg/dL (80-110); HEMOLYSIS < 15 (0-50); Potassium 3.7 mmol/L (3.4-5.1); Sodium 140 mmol/L (137-145)
== END ==
PROVIDERS: PCP Family Medicine; Referring Provider Urology; Visit Provider Urology
DX: N39.0 Urinary tract infection, site not specified (principal); Z87.442 Personal history of urinary calculi; N39.41 Urge incontinence; N95.2 Postmenopausal atrophic vaginitis
CPT/HCPCS: 36415; 80048; 81002; 87077; 87086; 87186; 99214

== ENCOUNTER → 2023-02-20 12:20 | Outpatient (CLI) | payer MEDICARE, SELFPAY ==
--- NOTE | 2023-02-20 12:22 | DI.CT.S_ITS ---
PROCEDURE: CT ABDOMEN PELVIS WO/W CON INDICATIONS: Recurring urinary tract infections, kidney stones TECHNIQUE: Optional 5 mm thick noncontrast images acquired from the diaphragm to the symphysis pubis. After the administration of intravenous contrast, 5 mm thick images acquired from the diaphragm to the symphysis pubis after a 10-minute delay. 2 mm thick coronal and sagittal reformats were then performed of the kidneys and ureters. For radiation dose reduction, the following was used: automated exposure control, adjustment of mA and/or kV according to patient size. COMPARISON: CT 05/27/2016. FINDINGS: Image quality: Excellent. Lung bases: 1.2 cm nodule with spiculated margins in the left lower lobe (series 7, image 2); this measures 0.8 cm in 2016. Heart size is normal. Urinary system: Both kidneys are normal in size, without hydronephrosis. Moderate burden of bilateral nonobstructing stones measuring no greater than 5 mm. No perinephric fat stranding. Wedge-shaped regions of hypoattenuation in the right kidney. Renal calyces appear normal in morphology when filled with contrast. Opacified portions of both ureters demonstrate normal caliber. Bladder wall thickness is normal. No calcified bladder stones. Mild cystocele. Trabeculated bladder wall. Other solid organs: Liver is normal in size and enhancement. Gallbladder contains a stone but without wall thickening to suggest acute cholecystitis . Biliary system is non dilated. Pancreas enhances normally. Spleen is normal in size and enhancement. No adrenal nodules. Peritoneum and bowel: Bowel loops demonstrate normal wall thickness and caliber. No free fluid or air. Colonic diverticulosis without evidence of diverticulitis. Nodes and vessels: No retroperitoneal or mesenteric adenopathy by size criteria. Aorta and inferior vena cava are normal in size. Abdominal wall: No ventral hernias. Pelvis: No pathologic free pelvic fluid. No inguinal hernias or adenopathy. Bones: No suspicious bony lesions. No vertebral body compression fractures. IMPRESSION: Moderate burden of bilateral, nonobstructing stones measuring no greater than 5 mm. No filling defect within the opacified renal collecting system or ureters. Wedge-shaped regions of right renal junctional hypoattenuation, suggestive of acute to subacute pyelonephritis. Correlate with urinalysis. Mild cystocele, indicating pelvic floor weakness. Cholelithiasis without wall thickening or adjacent fat stranding to suggest acute cholecystitis. Dictated by: Raciel Cervantes M.D. on 02/20/2023 at 12:43 Approved by: Raciel Cervantes M.D. on 02/20/2023 at 12:50
== END ==
PROVIDERS: PCP Family Medicine; Referring Provider Urology; Visit Provider Urology
DX: N39.0 Urinary tract infection, site not specified (principal); Z87.442 Personal history of urinary calculi; N81.10 Cystocele, unspecified; K80.20 Calculus of gallbladder without cholecystitis without obstruction; N20.0 Calculus of kidney
CPT/HCPCS: 74178; Q9967

== ENCOUNTER → 2023-03-01 09:15 | Outpatient (CLI) | payer MEDICARE, SELFPAY ==
--- NOTE | 2023-03-01 09:18 | DI.RAD.S_ITS ---
PROCEDURE: XR KUB INDICATIONS: Kidney stones TECHNIQUE: One view of the abdomen acquired. COMPARISON: Merged With [facility], CT, CT ABDOMEN PELVIS WO/W CON, 02/20/2023, 12:54. Merged With [facility], CT, CT KIDNEY URETER BLADDER (KUB), 08/10/2022, 1:57. FINDINGS: Surgical changes and devices: None. Bowel: Bowel gas pattern is normal. Moderate amount of stool in colon. Soft tissues: Left kidney is partially obscured by stool. Small renal calculi bilaterally. Visualized solid organ contours appear normal in size. Bones: No suspicious bony lesions. Scoliosis and degenerative changes in lumbar spine. There is a nerve stimulator in sacrum. IMPRESSION: Small renal calculi bilaterally. Dictated by: Andi Markham M.D. on 03/01/2023 at 16:38 Approved by: Andi Markham M.D. on 03/01/2023 at 16:39
== END ==
PROVIDERS: PCP Family Medicine; Referring Provider Urology; Visit Provider Urology
DX: N20.0 Calculus of kidney (principal); N39.0 Urinary tract infection, site not specified
CPT/HCPCS: 51798; 52000; 74018; 81002; 99213

== ENCOUNTER 2023-03-14 09:20 | Day surgery (SDC) | payer MEDICARE, SELFPAY ==
[2023-03-09 07:52] VITALS: BMI 25.7
[2023-03-14] VITALS (8 sets, daily range): BP systolic 137–169; BP diastolic 52–81; PULSE 66–81; RESP 12–18; TEMP 36.1–36.4; O2SAT 95–100; BMI 25.7
[2023-03-14] MEDS: LACTATED RINGERS 1,000 ML 42 ML IV (10:19)
--- NOTE | 2023-03-14 10:19 | PM.PREOP ---
Pre-operative Note COVID-19 COVID-19 status: Not tested Criteria for continued procedure: Non-surgical alternatives not available or appropriate per current SOC Interval Note History & Physical reviewed/Exam performed by Physician: Yes Changes to H&P: No
[2023-03-14] MEDS: CIPROFLOXACIN 400 MG/200 ML PIGGYBACK 200 MG IV (10:30)
--- NOTE | 2023-03-14 10:45 | SUR.OPER ---
Lithotomy on ESWL table, head on pillow, arms padded with gel pads and tucked at sides. tape patients bilateral legs in padded ESWL table stirrups. Warm blankets placed to entire body and wrapped around head. Patients glasses placed in patient belongings bag in pre-op.
--- NOTE | 2023-03-14 11:09 | P.OP_ITS ---
Procedure & Clinicians Procedure: Right extracorporeal shockwave lithotripsy with cystoscopy and right ureteral stent placement Same procedure as scheduled: Yes Indications: This 87-year-old female who had presented with recurring urinary tract infections and history of kidney stones was found to have bilateral kidney stones. She has of late had the same Klebsiella organism and it is possible that the stones or acting as a nidus of these recurrent infections and she presents this time to treat her right-sided stones and at a later date once the right side is cleared we will treat her left-sided stones in an effort to eliminate her urinary tract infections. Surgeon: Masoud Klein Click Yes if Unassisted: Yes Anesthesia Type: General Operative Notes Findings: External genitalia shows evidence of mild atrophic vaginitis as does the vaginal mucosa there is some introital narrowing. Urethral meatus is normal. The urethra is normal along its length with normal mucosa. The left ureteral orifice in normal position with clear efflux. The right ureteral orifices somewhat laterally displaced but otherwise normal. The bladder exhibits severe trabeculation cellules and some webbing there are no mucosal lesions or abnormalities. The stones are noted in the upper pole of the right kidney consistent with the findings of her CT scan and KUB. They are treated with 1000 shocks at level 7 with a pause and appeared to fragment completely. Closure Type: not applicable Specimen(s): none sent Prosthetic devices, grafts, tissues, transplants, or devices: Seven Greenlandic by multi length ureteral stent left in the right collecting system without a string. Estimated Blood Loss (mL): 0 Blood products transfused: none Procedure in detail: Procedure in detail: After informed consent was obtained, the patient was identified and brought to the operating room where she is placed in a supine position on the Lithotripter. Patient then had anesthesia induced and maintained. Ensuring an adequate level of anesthesia the patient was then transitioned to the lithotomy position where she was prepped, draped, prepared for Transurethral procedure. After prepping, draping, time-out and ensuring an adequate level of anesthesia 22 Greenlandic cystoscope was passed through the urethra and bladder were cystoscopy was performed. The right ureteral orifice once again identified and a hybrid guidewire was passed up and into the collecting system under fluoroscopic visualization. The stent was then passed over the wire and into the renal pelvis where it was position via fluoroscopic guidance and in the bladder under direct vision. With it in good position the nylon harness was removed the stent was left in good position the bladder was drained and the scope was removed. The patient then had the stones targeted via the imaging system and shockwave was delivered with an initial pause and at level 7 for a total of 1000 shocks. Periodic reimaging and re localization of the stones was done to ensure maximal energy delivered to the stone. At a 1000 shock waves the shockwave head was rotated out the fluoroscopy performed the stones appear to have been well fragmented and therefore the patient was awakened having tolerated the procedure well to be transferred to the postanesthesia care unit for recovery. From there the patient will be discharged to home straining her urine saving fragments. There were no complications. Complications: none Post-operative Condition: stable Disposition: PACU Plan for aftercare: Patient to be discharged to home to follow up my office in 10-14 days with a KUB she is a strain her urine save any fragments and bring these to follow-up.
[2023-03-14] MEDS: PHENAZOPYRIDINE 100 MG TABLET 200 MG PO (11:40)
[2023-03-14] MEDS: OXYBUTYNIN 5 MG TABLET PO (11:41)
[2023-03-14] MEDS: ACETAMINOPHEN 325 MG TABLET 650 MG PO (11:41)
== END 2023-03-14 12:59 | disposition home or self-care (01) ==
PROVIDERS: PCP Family Medicine; Referring Provider Urology; Visit Provider Urology
PROC: (CPT 50590; principal; 2023-03-14 10:45)
PROC: (CPT 50590; 2023-03-14 10:45)
DX: N20.0 Calculus of kidney (principal); N95.2 Postmenopausal atrophic vaginitis; N39.0 Urinary tract infection, site not specified; N39.41 Urge incontinence
CPT/HCPCS: 50590; J0744; J1100; J2405; J2704; J3010

== ENCOUNTER → 2023-03-17 08:54 | Outpatient (CLI) | payer MEDICARE, SELFPAY ==
--- NOTE | 2023-03-17 08:56 | DI.RAD.S_ITS ---
PROCEDURE: XR KUB INDICATIONS: KIDNEY STONES TECHNIQUE: One view of the abdomen acquired. COMPARISON: [facility], CT, CT ABDOMEN PELVIS WO/W CON, 02/20/2023, 12:54. [facility], CR, XR KUB, 03/01/2023, 9:13. FINDINGS: Surgical changes and devices: A right ureteral stent is seen in expected position. A sacral nerve stimulator is seen with pulse generator in the right lower back. Bowel: Bowel gas pattern is normal. Soft tissues: Small calcifications are seen projecting over the superior right kidney. There may be decreased number of right renal calculi. Stable small calcifications projecting over the left kidney. Visualized solid organ contours appear normal in size. Bones: No suspicious bony lesions. Scoliotic curvature of the spine with multilevel degenerative changes. Generalized osteopenia. IMPRESSION: 1. Interval placement of a right ureteral stent. 2. Bilateral renal calculi are seen. Right-sided renal calculi may have decreased in number. Approved by: Quintin Sanchez M.D. on 03/17/2023 at 11:09
== END ==
PROVIDERS: PCP Family Medicine; Referring Provider Urology; Visit Provider Urology
DX: N20.2 Calculus of kidney with calculus of ureter (principal); Z96.0 Presence of urogenital implants
CPT/HCPCS: 74018

== ENCOUNTER → 2023-03-22 14:08 | Outpatient (CLI) | payer MEDICARE, SELFPAY | PROVIDERS: PCP Family Medicine; Visit Provider Urology | DX: N20.2 Calculus of kidney with calculus of ureter (principal); N39.0 Urinary tract infection, site not specified; N39.41 Urge incontinence; N95.2 Postmenopausal atrophic vaginitis; Z87.442 Personal history of urinary calculi | CPT/HCPCS: 81002; 82365; 87086 ==

== ENCOUNTER → 2023-04-03 09:28 | Outpatient (CLI) | payer MEDICARE, SELFPAY ==
--- NOTE | 2023-04-03 09:30 | DI.RAD.S_ITS ---
PROCEDURE: XR KUB INDICATIONS: Follow-up kidney stones TECHNIQUE: One view of the abdomen acquired. COMPARISON: [facility], CT, CT ABDOMEN PELVIS WO/W CON, 02/20/2023, 12:54. CT, CT KIDNEY URETER BLADDER (KUB), 08/10/2022, 1:57. [facility], CR, XR KUB, 03/01/2023, 9:13. [facility], CR, XR KUB, 03/17/2023, 8:51. FINDINGS: Surgical changes and devices: There is a right ureteral stent in expected position. Note is made of is a nerve stimulator. Bowel: Bowel gas pattern is normal. Soft tissues: Right renal calculi are no longer conspicuous. There are left renal calculi. Visualized solid organ contours appear normal in size. Bones: No suspicious bony lesions. Scoliosis and degenerative changes in lumbar spine. IMPRESSION: 1. There is a right ureteral stent. Right renal calculi are no longer visualized. Left renal calculi are unchanged. Dictated by: Andi Markham M.D. on 04/03/2023 at 11:44 Approved by: Andi Markham M.D. on 04/03/2023 at 11:49
== END ==
PROVIDERS: PCP Nurse Practitioner; Referring Provider Urology; Visit Provider Urology
DX: N20.0 Calculus of kidney (principal)
CPT/HCPCS: 74018

== ENCOUNTER → 2023-04-06 10:07 | Outpatient (CLI) | payer MEDICARE, SELFPAY ==
[2023-04-13 19:50] LABS: Hydroxyapatite 100 % (.); Size <1 mm (.)
== END ==
PROVIDERS: PCP Nurse Practitioner; Visit Provider Urology
DX: N20.0 Calculus of kidney (principal); N39.0 Urinary tract infection, site not specified; N39.41 Urge incontinence; N95.2 Postmenopausal atrophic vaginitis; Z87.442 Personal history of urinary calculi
CPT/HCPCS: 81002; 82365; 87086; 99214

== ENCOUNTER → 2023-04-12 11:43 | Outpatient (CLI) | payer MEDICARE, SELFPAY ==
[2023-04-12 12:43] LABS: Appearance Urine UA CLOUDY; Bilirubin Urine UA NEGATIVE (NEGATIVE); Color Urine UA YELLOW; Glucose Urine UA NEGATIVE (Negative); Ketones Urine UA NEGATIVE (NEGATIVE); Leukocyte Esterase Urine UA 1+ (NEGATIVE); Nitrite Urine UA NEGATIVE (Negative); Occult Blood Urine UA 3+ (Negative); Protein Urine UA 1+ (Negative); Specific Gravity Urine UA <=1.005 (1.000-1.035); Urobilinogen Urine UA 0.2 E.U./dL (0.2)
[2023-04-12 12:44] LABS: pH Urine UA 6.5 (4.5-8.0)
[2023-04-12 12:55] LABS: Bacteria Urine Moderate (10-30); Culture Indicated Urine Specimen Cultured; RBC Urine 10-30/HPF (0-5/HPF); Squamous Epithelial Cell Urine None Seen (0-5/HPF); WBC Urine 5-10/HPF (0-5/HPF)
== END ==
PROVIDERS: PCP Nurse Practitioner; Referring Provider Urology; Visit Provider Urology
DX: N39.0 Urinary tract infection, site not specified (principal); N20.0 Calculus of kidney; N39.41 Urge incontinence
CPT/HCPCS: 81001; 87086

== ENCOUNTER → 2023-04-13 07:37 | Outpatient (CLI) | payer MEDICARE, SELFPAY ==
--- NOTE | 2023-04-13 | DI.CT.S_ITS ---
PROCEDURE: CT CHEST W CON INDICATIONS: Solitary pulmonary nodule TECHNIQUE: After the administration of intravenous contrast, 5 mm thick sections acquired from the pulmonary apices to the posterior costophrenic angles. 1 mm axial lung, 5 mm thick coronal and sagittal reformats and 7 mm axial MIP were acquired. For radiation dose reduction, the following was used: automated exposure control, adjustment of mA and/or kV according to patient size. COMPARISON: [facility], CT, ABDOMEN/PELVIS WITH CONTRAST, 05/27/2016, 9:28. [facility], CT, CT KIDNEY URETER BLADDER (KUB), 08/10/2022, 1:57. [facility], CT, CT ABDOMEN PELVIS WO/W CON, 02/20/2023, 12:54. FINDINGS: Lungs and pleura: 1.2 centimeter spiculated nodule at the left lower lobe (3/219) is not significantly changed in the short interval, increased in size since 2015 as reported previously previously 7-8 millimeters. Few other smaller nodules present for example a 3 millimeter left lower lobe nodule (3/226) and a 6 millimeter subpleural right middle lobe nodule (3/215). No pleural effusion. Mediastinum: No pericardial effusion. No mediastinal or hilar adenopathy by size criteria. Thoracic aorta and central pulmonary arteries are normal in size. Esophagus is normal in caliber. Bones and chest wall: Multilevel degenerative change of the visualized spine. No axillary or supraclavicular adenopathy by size criteria. Abdomen: Small nonobstructing stones right upper kidney. IMPRESSION: 1. No significant short interval change in the previously demonstrated 1.2 centimeter left lower lobe pulmonary nodule. This finding has increased in size since January 2016 comparison examination. Primary lung neoplasm is possible. 2. No thoracic adenopathy by size criteria. 3. A few smaller additional pulmonary nodules are present which can be followed on future follow-up studies. Dictated by: Quintin Plascencia M.D. on 04/14/2023 at 8:06 Approved by: Quintin Plascencia M.D. on 04/14/2023 at 8:21
[2023-04-13 08:01] LABS: Estimated Glomerular Filt Rate > 60 mL/min (>60)
== END ==
PROVIDERS: Radiology Diagnostic Radiology; PCP Nurse Practitioner; Referring Provider Internal Medicine; Visit Provider Internal Medicine
DX: R91.8 Other nonspecific abnormal finding of lung field (principal)
CPT/HCPCS: 36415; 71260; 82565; Q9967

== ENCOUNTER → 2023-04-19 14:54 | Outpatient (CLI) | payer MEDICARE, SELFPAY | PROVIDERS: PCP Nurse Practitioner; Visit Provider Urology | DX: N20.2 Calculus of kidney with calculus of ureter (principal); N39.0 Urinary tract infection, site not specified; N39.41 Urge incontinence | CPT/HCPCS: 52310; 87086 ==

== ENCOUNTER 2023-06-03 18:21 | Emergency (ER) | payer MEDICARE, SELFPAY ==
[2023-06-03] VITALS (15 sets, daily range): BP systolic 101–161; BP diastolic 49–81; PULSE 76–90; RESP 17–29; TEMP 37.6–37.8; O2SAT 93–97; BMI 24.7
--- NOTE | 2023-06-03 18:31 | DI.RAD.S_ITS ---
PROCEDURE: XR CHEST 1V INDICATIONS: suspected sepsis TECHNIQUE: One view of the chest was acquired. COMPARISON: [facility], CR, XR CHEST 1 VIEW, 05/17/2023, 8:13. [facility], CR, XR CHEST 1V, 06/17/2020, 10:08. FINDINGS: Surgical changes and devices: None. Lungs and pleura: There is a small left pleural effusion, slightly increased since the last exam. Left basilar atelectasis. No pneumothorax. Mediastinum: Mediastinal contours appear normal. Heart size is normal. Bones and chest wall: No suspicious bony lesions. Overlying soft tissues appear unremarkable. IMPRESSION: 1. Small left pleural effusion and left basilar atelectasis. Dictated by: Andi Markham M.D. on 06/03/2023 at 19:04 Approved by: Andi Markham M.D. on 06/03/2023 at 19:05
[2023-06-03 18:52] LABS: Prothrombin Time 11.5 SECONDS (10.1-12.7)
[2023-06-03] MEDS: SODIUM CHLORIDE 0.9% 1,000 ML 1000 ML IV (18:53)
[2023-06-03 18:55] LABS: Lactate (Lactic Acid) 1.1 mmol/L (0.7-2.1); PTT Partial Thromboplastin Tim 30 SECONDS (26-36)
[2023-06-03 18:57] LABS: Alanine Aminotransferase 24 IU/L (<35); Albumin 3.9 g/dL (3.5-5.0); Alkaline Phosphatase 116 U/L (38-126); Aspartate Aminotransferase 30 IU/L (14-36); BUN Creatinine Ratio 24.1 (6-22); Bilirubin Total 0.3 mg/dL (0.2-1.3); Blood Urea Nitrogen 20 mg/dL (7-17); Carbon Dioxide 26 mmol/L (22-32); Chloride 103 mmol/L (98-107); Estimated Glomerular Filt Rate > 60 mL/min (>60); Glucose 116 mg/dL (80-110); HEMOLYSIS < 15 (0-50); Lipase 64 U/L (23-300); Potassium 3.8 mmol/L (3.4-5.1); Sodium 136 mmol/L (137-145); Total Protein 7.9 g/dL (6.3-8.2)
[2023-06-03 19:09] LABS: Add Manual Diff / Slide Review NO; Basophils Absolute Auto 100 /uL (0-100); Basophils Percent Auto 0.4 % (0-2); Eosinophils Absolute Auto 0 /uL (0-450); Eosinophils Percent Auto 0.1 % (2-4); Hematocrit 36.9 % (36-46); Hemoglobin 12.4 g/dL (12.0-16.0); Lymphocytes Absolute Auto 600 /uL (1100-4500); Mean Corpuscular HGB Conc 33.6 % (30-36); Mean Corpuscular Hemoglobin 30.3 PG (26-34); Mean Corpuscular Volume 90.3 fL (80-100); Monocytes Absolute Auto 1100 /uL (0-900); Monocytes Percent Auto 9.3 % (3-14); Neutrophils Absolute Auto 10100 /uL (1500-7000); Neutrophils Percent Auto 85.2 % (50-75); Platelet Count 431 X10^3/uL (150-400); Red Blood Cell Count 4.08 X10^6/uL (4.0-5.2); Red Cell Distribution Width 14.3 % (11.6-14.8); White Blood Cell Count 11.9 X10^3/uL (4.5-11.0)
[2023-06-03] MEDS: ACETAMINOPHEN 325 MG TABLET 650 MG PO (19:21)
[2023-06-03] MEDS: ONDANSETRON 4 MG/2 ML INJ IV (19:27)
--- NOTE | 2023-06-03 19:31 | ED_ITS ---
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 She is following with Dr. Reynolds for her pulmonology. Dr. Parnell is her surgeon on [facility]. Patient states since then she is been doing well she is had some persistent pain in her left chest that comes and goes she was on gabapentin for it but found it made her too woozy. She is been taking Tylenol PRN. She states today she just felt sort of sick, she felt slightly nauseated and felt like she was warm. She felt a little lightheaded but did not have any syncope. She states chest pain isn't increasing from usual or changing in nature it has not changed location it is all in the left side. She states her wounds appear to be healing appropriately. She denies no new shortness of breath. She did not have any vomiting just nausea today. No issues with bowel movements such as diarrhea or constipation, no dysuria urgency or frequency. No swelling in upper or lower extremities. Patient has been taking Tylenol PRN for pain as well as Celebrex. She does note she would an episode of atrial fibrillation at [facility] while she was hospitalized and had what sounds like medication that improved she has not had any additional episodes. She does have a history of kidney stones has had prior lithotripsy. She she does take losartan for blood pressure and amlodipine. She is a former smoker, no daily alcohol, no illicit. Hillary whitten as her primary care. Related Data Home Medications Medication Instructions Recorded Confirmed coenzyme Q10 [Ultra CoQ10] PO 02/16/23 04/25/23 glucosamine HCl PO 02/16/23 04/25/23 estriol 1 g vaginal 2XW 03/01/23 04/25/23 cyclosporine 0.05 % eye drops drp EYE-BOTH DAILY 03/30/23 04/25/23 (Restasis MultiDose) Previous Rx's Medication Instructions Recorded cholecalciferol (vitamin D3) 50 2,000 unit PO DAILY #90 caps 05/02/18 mcg (2,000 unit) capsule multivitamin (Multiple Vitamins 1 tab PO DAILY #90 tabs 05/02/18 tablet) amlodipine 5 mg tablet See Rx Instructions .Route 03/30/23 .COMPLEX #90 tabs losartan 50 mg tablet See Rx Instructions .Route 03/30/23 .COMPLEX #90 tabs phenazopyridine 200 mg tablet 200 mg PO TID PRN pain #30 tabs 04/12/23 (Pyridium) amoxicillin 875 mg-potassium 1 tab PO BID #20 tabs 06/03/23 clavulanate 125 mg tablet Allergies Allergy/AdvReac Type Severity Reaction Status Date / Time neomycin Allergy Mild ITCHING Verified 06/03/23 18:32 Penicillins Allergy Mild RASH, GI Verified 06/03/23 18:32 UPSET morphine AdvReac Mild INTOLERANT Verified 06/03/23 18:32 Review of Systems Review of Systems ROS Unobtainable: All systems reviewed & are unremarkable except as noted in HPI and below Patient History Medical History Atrophic vulvovaginitis Bilateral kidney stones Chicken pox (~1942) Coronary artery disease (~2005) Headache (~2009) Hearing deficit History of heart attack History of kidney stones History of urinary incontinence (~1999) Hyperlipidemia Hypertension (~1979) Mass of left lung Mumps (~1944) Osteoarthritis (~1999) Osteoporosis Ruptured tympanic membrane (~1989) Skin cancer (~2006) Tinnitus (~1979) Vision disorder Surgical History History of cataract removal with insertion of prosthetic lens (10/26/15) History of cystoscopy (~2012) History of eye surgery (~1979) History of knee replacement (~2017) History of urologic surgery (03/14/23) History of vein stripping (~1977) Status post arthroscopy (~01/2013) Status post colonoscopy (~12/2003) Status post dilation and curettage (~1957) Status post vaginal hysterectomy (~1978) Ureteral stone (~2014) Family History Father No problems noted. Grandfather No problems noted. Grandmother No problems noted. Mother No problems noted. Grandfather No problems noted. Grandmother No problems noted. Social History marital status: number of children: 3 household members: none lives independently: Yes caregiver/support person: Yes (son and daughter in law live across the street ) housing: house occupational status: unemployed (retired) Smoking Status: Former smoker alcohol intake: former substance use type: does not use caffeine: Yes Type(s) of exercise: bicycling and other frequency: 1-2 times per week duration: > 90 minutes/day Smoking Status: Former smoker alcohol intake frequency: holidays/special occasions only Substance Use Type: does not use Exam Narrative Exam Narrative: GENERAL: Alert and oriented x three, well-appearing elderly female in mild distress. HEENT: Head normocephalic, atraumatic, EOMI, no nasal congestion, pupils reactive, face symmetric, moist mucous membranes NECK: Supple, full range of motion CARDIOVASCULAR: Regular rate and rhythm without murmurs, rubs or gallops. No JVD. No swelling in upper or lower extremities. RESPIRATORY: Breath sounds equal bilaterally, no wheezes rales or rhonchi. No tachypnea. No accessory muscle use. Speaks in full sentences. Patient has healed incisions on the left chest and posterior chest which are clean dry and intact. ABDOMEN: Soft, nontender. Nondistended. Normoactive bowel sounds all 4 quadr ants. No guarding or rebound, rigidity, no mass : No CVA tenderness EXTREMITIES: Normal range of motion, no clubbing or edema. Neurovascularly intact. NEUROLOGICAL: Cranial nerves II through XII grossly intact. Moving all extremities SKIN: Warm, dry, no petechiae, no rashes or lesions. Initial Vital Signs Initial Vital Signs: Vital Signs Temperature 100.1 F H 06/03/23 18:22 Pulse Rate 89 06/03/23 18:22 Respiratory Rate 23 06/03/23 18:22 Blood Pressure 160/73 H 06/03/23 18:22 Pulse Oximetry 94 06/03/23 18:22 Oxygen Delivery Method Room Air 06/03/23 18:22 Course Orders Ordered: Discontinued Medications Acetaminophen (Acetaminophen 325 Mg Tablet) 650 mg PO NOW ONE Stop: 06/03/23 18:57 Last Admin: 06/03/23 19:21 Dose: 650 mg Documented By: DRAKE Sodium Chloride (Normal Saline 0.9%) 1,000 mls @ 1,000 mls/hr IV BOLUS ONE Stop: 06/03/23 19:30 Last Infusion: 06/03/23 20:00 Dose: 0 mls/hr Documented By: Admin: 06/03/23 18:53 Dose: 1,000 mls/hr Documented By: JORDAN Clindamycin Phosphate (Cleocin) 900 mg in 50 mls @ 50 mls/hr IV NOW ONE Stop: 06/03/23 21:21 Last Infusion: 06/03/23 21:45 Dose: 0 mls/hr Documented By: Infusion: 06/03/23 21:00 Dose: 50 mls/hr Documented By: Infusion: 06/03/23 20:40 Dose: 0 mls/hr Documented By: Admin: 06/03/23 20:32 Dose: 50 mls/hr Documented By: DRAKE Ketorolac Tromethamine (Ketorolac 30 Mg/Ml Vial) 15 mg IV NOW ONE Stop: 06/03/23 19:47 Last Admin: 06/03/23 19:53 Dose: 15 mg Documented By: Ondansetron HCl (Ondansetron 4 Mg/2 Ml Inj) 4 mg IV NOW PRN PRN Reason: Nausea And Vomiting Last Admin: 06/03/23 19:27 Dose: 4 mg Documented By: DRAKE Vital Signs Vital signs: Vital Signs - 8 hr 06/03/23 21:30 06/03/23 21:30 Pulse Rate 76 Respiratory Rate 20 Blood Pressure 101/49 L Pulse Oximetry 96 MDM - Fever Lab Data 06/03/23 18:37 06/03/23 18:37 Labs: Lab Results 06/03/23 06/03/23 06/03/23 Range/Units 18:37 18:37 18:37 WBC 11.9 H (4.5-11.0) X10^3/uL RBC 4.08 (4.0-5.2) X10^6/uL Hgb 12.4 (12.0-16.0) g/dL Hct 36.9 (36-46) % MCV 90.3 (80-100) fL MCH 30.3 (26-34) PG MCHC 33.6 (30-36) % RDW 14.3 (11.6-14.8) % Plt Count 431 H (150-400) X10^3/uL Neut % (Auto) 85.2 H (50-75) % Lymph % (Auto) 5.0 L (25-40) % Aiken % (Auto) 9.3 (3-14) % Eos % (Auto) 0.1 L (2-4) % Baso % (Auto) 0.4 (0-2) % Neut # (Auto) 87164 H (8043-2496) /uL Lymph # (Auto) 600 L (9466-7549) /uL Aiken # (Auto) 1100 H (0-900) /uL Eos # (Auto) 0 (0-450) /uL Baso # (Auto) 100 (0-100) /uL PT 11.5 (10.1-12.7) SECONDS INR 1.0 (0.9-1.3) APTT 30 (26-36) SECONDS Sodium 136 L (137-145) mmol/L Potassium 3.8 (3.4-5.1) mmol/L Chloride 103 (98-107) mmol/L Carbon Dioxide 26 (22-32) mmol/L BUN 20 H (7-17) mg/dL Creatinine 0.83 (0.52-1.04) mg/dL Estimated GFR > 60 (>60) mL/min BUN/Creatinine Ratio 24.1 H (6-22) Glucose 116 H (80-110) mg/dL Lactate (0.7-2.1) mmol/L Calcium 9.0 (8.4-10.2) mg/dL Total Bilirubin 0.3 (0.2-1.3) mg/dL AST 30 (14-36) IU/L ALT 24 (<35) IU/L Alkaline Phosphatase 116 (38-126) U/L Total Creatine Kinase (30-135) U/L Troponin I (0.01-0.034) ng/mL NT-Pro-B Natriuret Pep (<450) pg/mL Total Protein 7.9 (6.3-8.2) g/dL Albumin 3.9 (3.5-5.0) g/dL Globulin 4.0 (1.7-4.1) g/dL Albumin/Globulin Ratio 1.0 (1.0-2.8) Lipase 64 (23-300) U/L Procalcitonin 0.10 (<0.5) ng/mL Urine Color Urine Appearance Urine pH (4.5-8.0) Ur Specific Opp (1.000-1.035) Urine Protein (Negative) Urine Glucose (UA) (Negative) g/dL Urine Ketones (NEGATIVE) Urine Occult Blood (Negative) Urine Nitrate (Negative) Urine Bilirubin (NEGATIVE) Urine Urobilinogen (0.2) E.U./dL Ur Leukocyte Esterase (NEGATIVE) Urine RBC (0-5/HPF) Urine WBC (0-5/HPF) Ur Squamous Epith Cells (0-5/HPF) Urine Bacteria (None) Ur Culture Indicated? SARS-CoV-2 (PCR) (Negative) Influenza A (RT-PCR) (NEGATIVE) Influenza B (RT-PCR) (NEGATIVE) RSV (PCR) (Negative) 06/03/23 06/03/23 06/03/23 Range/Units 18:37 18:37 19:54 WBC (4.5-11.0) X10^3/uL RBC (4.0-5.2) X10^6/uL Hgb (12.0-16.0) g/dL Hct (36-46) % MCV (80-100) fL MCH (26-34) PG MCHC (30-36) % RDW (11.6-14.8) % Plt Count (150-400) X10^3/uL Neut % (Auto) (50-75) % Lymph % (Auto) (25-40) % Aiken % (Auto) (3-14) % Eos % (Auto) (2-4) % Baso % (Auto) (0-2) % Neut # (Auto) (9419-5987) /uL Lymph # (Auto) (8793-3142) /uL Aiken # (Auto) (0-900) /uL Eos # (Auto) (0-450) /uL Baso # (Auto) (0-100) /uL PT (10.1-12.7) SECONDS INR (0.9-1.3) APTT (26-36) SECONDS Sodium (137-145) mmol/L Potassium (3.4-5.1) mmol/L Chloride (98-107) mmol/L Carbon Dioxide (22-32) mmol/L BUN (7-17) mg/dL Creatinine (0.52-1.04) mg/dL Estimated GFR (>60) mL/min BUN/Creatinine Ratio (6-22) Glucose (80-110) mg/dL Lactate 1.1 (0.7-2.1) mmol/L Calcium (8.4-10.2) mg/dL Total Bilirubin (0.2-1.3) mg/dL AST (14-36) IU/L ALT (<35) IU/L Alkaline Phosphatase (38-126) U/L Total Creatine Kinase < 20 L (30-135) U/L Troponin I 0.013 (0.01-0.034) ng/mL NT-Pro-B Natriuret Pep 1160 H (<450) pg/mL Total Protein (6.3-8.2) g/dL Albumin (3.5-5.0) g/dL Globulin (1.7-4.1) g/dL Albumin/Globulin Ratio (1.0-2.8) Lipase (23-300) U/L Procalcitonin (<0.5) ng/mL Urine Color Yellow Urine Appearance Clear Urine pH 6.5 (4.5-8.0) Ur Specific Opp <=1.005 (1.000-1.035) Urine Protein Negative (Negative) Urine Glucose (UA) Negative (Negative) g/dL Urine Ketones Negative (NEGATIVE) Urine Occult Blood Negative (Negative) Urine Nitrate Negative (Negative) Urine Bilirubin Negative (NEGATIVE) Urine Urobilinogen 0.2 (0.2) E.U./dL Ur Leukocyte Esterase 1+ H (NEGATIVE) Urine RBC None seen (0-5/HPF) Urine WBC 1-5/hpf (0-5/HPF) Ur Squamous Epith Cells 0-1 /hpf (0-5/HPF) Urine Bacteria Many (>30) H (None) Ur Culture Indicated? Specimen cultured SARS-CoV-2 (PCR) (Negative) Influenza A (RT-PCR) (NEGATIVE) Influenza B (RT-PCR) (NEGATIVE) RSV (PCR) (Negative) 06/03/23 Range/Units 19:58 WBC (4.5-11.0) X10^3/uL RBC (4.0-5.2) X10^6/uL Hgb (12.0-16.0) g/dL Hct (36-46) % MCV (80-100) fL MCH (26-34) PG MCHC (30-36) % RDW (11.6-14.8) % Plt Count (150-400) X10^3/uL Neut % (Auto) (50-75) % Lymph % (Auto) (25-40) % Aiken % (Auto) (3-14) % Eos % (Auto) (2-4) % Baso % (Auto) (0-2) % Neut # (Auto) (4645-1177) /uL Lymph # (Auto) (3664-9551) /uL Aiken # (Auto) (0-900) /uL Eos # (Auto) (0-450) /uL Baso # (Auto) (0-100) /uL PT (10.1-12.7) SECONDS INR (0.9-1.3) APTT (26-36) SECONDS Sodium (137-145) mmol/L Potassium (3.4-5.1) mmol/L Chloride (98-107) mmol/L Carbon Dioxide (22-32) mmol/L BUN (7-17) mg/dL Creatinine (0.52-1.04) mg/dL Estimated GFR (>60) mL/min BUN/Creatinine Ratio (6-22) Glucose (80-110) mg/dL Lactate (0.7-2.1) mmol/L Calcium (8.4-10.2) mg/dL Total Bilirubin (0.2-1.3) mg/dL AST (14-36) IU/L ALT (<35) IU/L Alkaline Phosphatase (38-126) U/L Total Creatine Kinase (30-135) U/L Troponin I (0.01-0.034) ng/mL NT-Pro-B Natriuret Pep (<450) pg/mL Total Protein (6.3-8.2) g/dL Albumin (3.5-5.0) g/dL Globulin (1.7-4.1) g/dL Albumin/Globulin Ratio (1.0-2.8) Lipase (23-300) U/L Procalcitonin (<0.5) ng/mL Urine Color Urine Appearance Urine pH (4.5-8.0) Ur Specific Opp (1.000-1.035) Urine Protein (Negative) Urine Glucose (UA) (Negative) g/dL Urine Ketones (NEGATIVE) Urine Occult Blood (Negative) Urine Nitrate (Negative) Urine Bilirubin (NEGATIVE) Urine Urobilinogen (0.2) E.U./dL Ur Leukocyte Esterase (NEGATIVE) Urine RBC (0-5/HPF) Urine WBC (0-5/HPF) Ur Squamous Epith Cells (0-5/HPF) Urine Bacteria (None) Ur Culture Indicated? SARS-CoV-2 (PCR) Negative (Negative) Influenza A (RT-PCR) Flu a negative (NEGATIVE) Influenza B (RT-PCR) Flu b negative (NEGATIVE) RSV (PCR) Negative (Negative) Urine Dip Bedside Urine Glucose Negative Bedside Urine Bilirubin - Negative Bedside Urine Ketone - Negative Urine Specific Opp 1.010 Bedside Urine Occult Blood - Negative Bedside Urine pH 8.0 Bedside Urine Protein - Negative Bedside Urine Urobilinogen - Negative Bedside Urine Nitrite - Negative Bedside Urine Leukocytes +/- 15 Esterase Imaging Data Chest x-ray: Radiologist's Impression: Close Chest X-Ray (Signed) Andi Markham - 06/03/[address] (Signed) Quintin Plascencia - 04/13/23 KUB X-Ray (Signed) Andi Markham - 04/03/23 KUB X-Ray (Signed) Quintin Sanchez - 03/17/23 KUB X-Ray (Signed) Andi Markham - 03/01/23 Abdomen/Pelvis CT (Signed) Raciel Cervantes - 02/20/23 Abdomen/Pelvis CT (Signed) Andi Markham - 08/10/22 Hip X-Ray (Signed) Lc Prado - 11/18/21 Hand X-Ray (Signed) Jose D Christopher - 09/03/21 DI Result CC 09/02/21 DI Result CC 09/02/21 DI Result CC 07/03/21 Lumbar Spine X-Ray (Signed) Yobani Landis - 05/26/21 Mammogram Screening (Signed) Dylan Pichardo - 10/24/20 Abdomen X-Ray (Signed) Clara Lopez - 06/24/20 Chest X-Ray (Signed) Dylan Pichardo - 06/17/20 Mammogram Screening (Signed) Heide Downing - 09/12/[address] (Signed) Deborah Duval - 03/20/19 Mammogram Screening (Signed) GhazalaSuzie bush - 09/08/18 Launch?Image [address] [address] XRay Report Signed Patient: Chelo Brasher MR#: [id number] : 1935 Acct:[id number] Age/Sex: 87 / F Date of Service: 06/03/23 Loc: ED Accession Number: [id number] ?? Procedure: XR chest 1V Ordering Provider: Deisi Sanders D.O. PROCEDURE:? XR CHEST 1V ? INDICATIONS:? suspected sepsis ? TECHNIQUE:? One view of the chest was acquired.? ? COMPARISON:? [facility], CR, XR CHEST 1 VIEW, 05/17/2023, 8:13.? Merged With [facility], CR, XR CHEST 1V, 06/17/2020, 10:08. ? FINDINGS:? ? Surgical changes and devices:? None.? ? Lungs and pleura:? There is a small left pleural effusion, slightly increased since the last exam.? Left basilar atelectasis.? No pneumothorax.? ? Mediastinum:? Mediastinal contours appear normal.? Heart size is normal.? ? Bones and chest wall:? No suspicious bony lesions.? Overlying soft tissues a ppear unremarkable.? ? ? IMPRESSION:? ? 1. Small left pleural effusion and left basilar atelectasis.? ? ? Dictated by: Andi Markham M.D. on 06/03/2023 at 19:04 ? ? Approved by: Andi Markham M.D. on 06/03/2023 at 19:05?? CT scan - chest: Radiologist's Impression: [address] [address] [address] Scan Report Signed Patient: Chelo Brasher MR#: [id number] : 1935 Acct:[id number] Age/Sex: 87 / F Date of Service: 06/03/23 Loc: ED Accession Number: [id number] ?? Procedure: CT angio chest PE protocol Ordering Provider: Mank,Deisi C D.O. PROCEDURE:? CT ANGIO CHEST PE PROTOCOL ? INDICATIONS:? S/P LLL resection 15 days, 100.2F, chills ? TECHNIQUE:? After the administration of intravenous contrast, 2 mm thick sections acquired from the pulmonary apices to the posterior costophrenic angles.? 3-dimensional maximum intensity projection (MIP) coronal and sagittal reformats were then acquired through the thorax.? For radiation dose reduction, the following was used:? automated exposure control, adjustment of mA and/or kV according to patient size.? ? COMPARISON:? None. ? FINDINGS:? Image quality:? Excellent.? ? Pulmonary arteries:? Pulmonary arteries are normal in size, and demonstrate no intraluminal filling defects to suggest central pulmonary embolism.? ? Lungs and pleura:? Small to moderate partially loculated left pleural effusion is seen with fluid extending to oblique fissure.? Dependent atelectasis in posterior aspect of bilateral lung wood are seen.? No pneumothorax.? Central and peripheral airway is patent.? 4 mm solid nodule is seen adjacent to anterior pleura of right middle lobe series 5 image 202. 3 mm solid nodule is also seen in anterior aspect of right lower lobe adjacent to major fissure series 5, image 202. ? Mediastinum:? Heart size is normal, without pericardial effusion.? No mediastinal or hilar adenopathy.? Thoracic aorta is normal in caliber and enhancement.? Esophagus is normal in caliber, without hiatal hernia.? ? Bones and chest wall:? No suspicious bony lesions.? Ribs and thoracic spine appear intact throughout.? Thyroid gland is within normal limits.? No axillary or supraclavicular adenopathy.? ? Abdomen:? Visualized upper abdominal solid organs appear normal in the early arterial phase of enhancement.? ? IMPRESSION:? ? 1. No pulmonary emboli.? No thoracic aortic aneurysm or dissection. ? 2. Small to moderate partially loculated left pleural effusion with adjacent left lung atelectasis and slight mediastinal shift to the left.? Mild dependent atelectasis also seen in posterior aspect of right lower lobe.? 4 mm nodule in anterior aspect of right middle lobe.? Follow-up study in 12 months can be done for evaluation of stability.? Airway is patent.? No pneumothorax. ? 3. No mediastinal or hilar lymphadenopathy by size criteria. ? ? Dictated by: Lc Prado M.D. on 06/03/2023 at 20:56 ? ? Approved by: Lc Prado M.D. on 06/03/2023 at 21:00?? ECG Data Attestation: I personally reviewed and interpreted this ECG as follows: Prior ECG tracings: available for review Interpretation: Sinus rhythm marked sinus arrhythmia, rate 83 CA 148 QRS 88 QTC of 425. No acute ST elevation patient does have T-waves inverted in lateral leads V4 5 and 6. Lead 3 appears similar to prior. Patient has extra be in V1 2 and [address] segment appears similar to prior. MDM Narrative Medical decision making narrative: Pleasant 87-year-old female comes in with complaint of feeling unwell with a temperature of a 100.2? F in the department. Patient states no rapid increase in chest pain she is just felt a little sick today slightly nauseated and some chills but no rigors. White count 11, hemoglobin is 12 platelets are 431. Coags are negative, CMP shows no acute change to renal function or electrolytes lactate 1.1 with a negative procalcitonin negative LFTs. Chest x-ray shows a small left pleural effusion and CT chest was obtained secondary to recent surgery, shows small to moderate effusion with some loculations on the left side. This could be secondary to recent surgery but patient was covered with a dose of IV antibiotic. No pulmonary emboli. Respiratory panel is negative. Patient does have positive for leukocyte esterase and many bacteria no nitrates this could be a source of infection as well and was sent for culture. Discussed with patient she has a penicillin allergy but tolerates amoxicillin well. We will start her on Augmentin. She has follow up with pulmonology on the [address] Oneill here locally. Discussed review her findings here from today, discussed return precautions all questions answered. Discharge Plan Departure Patient Disposition: Home Clinical Impression: Loculated pleural effusion, Acute UTI Activity Restrictions/Additional Instructions: Your workup today does show a loculated pleural effusion this this can occur after lung lobectomy, follow up with your enrober to review your images at your appointment on the 09 of June. There is potential for infection in her lungs but your urine also shows potential infection. Take antibiotics until completed. [facility] [place]. Please return for persistent fevers, new or worsening abdominal, chest pain or shortness of breath, vomiting, back or flank pain, difficulty with urination, new swelling in her extremities or other new or concerning changes. Prescriptions: New amoxicillin-pot clavulanate 875-125 mg tablet 1 tab PO BID Qty: 20 0RF No Action amlodipine 5 mg tablet See Rx Instructions .ROUTE .COMPLEX Qty: 90 3RF Dose Instruction: TAKE 1 TABLET BY MOUTH DAILY Rx Instructions: TAKE 1 TABLET BY MOUTH DAILY losartan 50 mg tablet See Rx Instructions .ROUTE .COMPLEX Qty: 90 3RF Dose Instruction: TAKE 1 TABLET BY MOUTH EVERY DAY Rx Instructions: TAKE 1 TABLET BY MOUTH EVERY DAY Restasis MultiDose 0.05 % drops EYE-BOTH DAILY cholecalciferol (vitamin D3) 2,000 unit capsule 2,000 unit PO DAILY Qty: 90 0RF multivitamin [Multiple Vitamins] tablet 1 tab PO DAILY Qty: 90 0RF estriol 1 g vaginal 2XW phenazopyridine [Pyridium] 200 mg tablet 200 mg PO TID PRN (Reason: pain) Qty: 30 0RF glucosamine HCl PO coenzyme Q10 [Ultra CoQ10] PO Referrals: Hillary Whitten ARNP [Primary Care Provider] - Stand Alone Forms: Patient Portal/API
--- NOTE | 2023-06-03 19:46 | DI.CT.S_ITS ---
PROCEDURE: CT ANGIO CHEST PE PROTOCOL INDICATIONS: S/P LLL resection 15 days, 100.2F, chills TECHNIQUE: After the administration of intravenous contrast, 2 mm thick sections acquired from the pulmonary apices to the posterior costophrenic angles. 3-dimensional maximum intensity projection (MIP) coronal and sagittal reformats were then acquired through the thorax. For radiation dose reduction, the following was used: automated exposure control, adjustment of mA and/or kV according to patient size. COMPARISON: None. FINDINGS: Image quality: Excellent. Pulmonary arteries: Pulmonary arteries are normal in size, and demonstrate no intraluminal filling defects to suggest central pulmonary embolism. Lungs and pleura: Small to moderate partially loculated left pleural effusion is seen with fluid extending to oblique fissure. Dependent atelectasis in posterior aspect of bilateral lung wood are seen. No pneumothorax. Central and peripheral airway is patent. 4 mm solid nodule is seen adjacent to anterior pleura of right middle lobe series 5 image 202. 3 mm solid nodule is also seen in anterior aspect of right lower lobe adjacent to major fissure series 5, image 202. Mediastinum: Heart size is normal, without pericardial effusion. No mediastinal or hilar adenopathy. Thoracic aorta is normal in caliber and enhancement. Esophagus is normal in caliber, without hiatal hernia. Bones and chest wall: No suspicious bony lesions. Ribs and thoracic spine appear intact throughout. Thyroid gland is within normal limits. No axillary or supraclavicular adenopathy. Abdomen: Visualized upper abdominal solid organs appear normal in the early arterial phase of enhancement. IMPRESSION: 1. No pulmonary emboli. No thoracic aortic aneurysm or dissection. 2. Small to moderate partially loculated left pleural effusion with adjacent left lung atelectasis and slight mediastinal shift to the left. Mild dependent atelectasis also seen in posterior aspect of right lower lobe. 4 mm nodule in anterior aspect of right middle lobe. Follow-up study in 12 months can be done for evaluation of stability. Airway is patent. No pneumothorax. 3. No mediastinal or hilar lymphadenopathy by size criteria. Dictated by: Lc Prado M.D. on 06/03/2023 at 20:56 Approved by: Lc Prado M.D. on 06/03/2023 at 21:00
[2023-06-03] MEDS: KETOROLAC 30 MG/ML VIAL 15 MG IV (19:53)
--- NOTE | 2023-06-03 19:59 | PC.NURSE ---
EMERGENCY COMMUNICATIONS OFFICER note: 1948 Patient helped with elimination. Patient was helped to put on brief and put on purewick to help with incontinence.
[2023-06-03 20:11] LABS: Creatine Kinase < 20 U/L (30-135)
[2023-06-03 20:14] LABS: Appearance Urine UA CLEAR; Bilirubin Urine UA NEGATIVE (NEGATIVE); Color Urine UA YELLOW; Glucose Urine UA NEGATIVE (Negative); Ketones Urine UA NEGATIVE (NEGATIVE); Leukocyte Esterase Urine UA 1+ (NEGATIVE); Nitrite Urine UA NEGATIVE (Negative); Occult Blood Urine UA NEGATIVE (Negative); Protein Urine UA NEGATIVE (Negative); Specific Gravity Urine UA <=1.005 (1.000-1.035); Urobilinogen Urine UA 0.2 E.U./dL (0.2)
[2023-06-03 20:15] LABS: pH Urine UA 6.5 (4.5-8.0)
[2023-06-03 20:24] LABS: NT-proBNP (BNP-Adult 18+) 1160 pg/mL (<450); Troponin I 0.013 ng/mL (0.01-0.034)
[2023-06-03 20:26] LABS: Bacteria Urine Many (>30); Culture Indicated Urine Specimen Cultured; RBC Urine None Seen (0-5/HPF); Squamous Epithelial Cell Urine 0-1 /HPF (0-5/HPF); WBC Urine 1-5/HPF (0-5/HPF)
[2023-06-03] MEDS: CLINDAMYCIN 900 MG/50 ML PIGGYBACK 50 MG IV (20:32)
[2023-06-03 20:43] LABS: Influenza A - CEPHEID Flu A NEGATIVE (NEGATIVE); Influenza B - CEPHEID Flu B NEGATIVE (NEGATIVE); Respiratory Syncytial Virus Negative (Negative)
[2023-06-03 20:52] LABS: COVID-19 CEPHEID 4-PLEX PCR Negative (Negative)
== END 2023-06-03 21:58 | disposition home or self-care (01) ==
PROVIDERS: Emergency Provider Emergency Medicine; PCP Nurse Practitioner
DX: J90 Pleural effusion, not elsewhere classified (principal); N39.0 Urinary tract infection, site not specified; I49.8 Other specified cardiac arrhythmias; Z87.891 Personal history of nicotine dependence
CPT/HCPCS: 0241U; 36415; 71045; 71275; 80053; 81001; 81003; 82550; 83605; 83690; 83880; 84145; 84484; 85025; 85610; 85730; 87040; 87077; 87086; 87185; 87186; 93005; 99285; J1885; J2405; Q9967

== ENCOUNTER 2023-06-04 12:22 | Inpatient (IN) | payer MEDICARE, SELFPAY ==
[2023-06-04 12:40] VITALS: BP 118/54; PULSE 63; RESP 20; TEMP 36.5; O2SAT 99; BMI 24.7
[2023-06-04 13:11] LABS: Add Manual Diff / Slide Review NO; Basophils Absolute Auto 0 /uL (0-100); Basophils Percent Auto 0.1 % (0-2); Eosinophils Absolute Auto 0 /uL (0-450); Hematocrit 36.3 % (36-46); Hemoglobin 12.2 g/dL (12.0-16.0); Lymphocytes Absolute Auto 800 /uL (1100-4500); Lymphocytes Percent Auto 7.4 % (25-40); Mean Corpuscular HGB Conc 33.7 % (30-36); Mean Corpuscular Hemoglobin 30.5 PG (26-34); Mean Corpuscular Volume 90.5 fL (80-100); Monocytes Absolute Auto 900 /uL (0-900); Monocytes Percent Auto 8.5 % (3-14); Neutrophils Absolute Auto 9200 /uL (1500-7000); Platelet Count 348 X10^3/uL (150-400); Red Cell Distribution Width 14.5 % (11.6-14.8)
[2023-06-04 13:17] LABS: Alanine Aminotransferase 22 IU/L (<35); Albumin 3.6 g/dL (3.5-5.0); Alkaline Phosphatase 99 U/L (38-126); Aspartate Aminotransferase 26 IU/L (14-36); BUN Creatinine Ratio 22.4 (6-22); Bilirubin Total 0.4 mg/dL (0.2-1.3); Blood Urea Nitrogen 19 mg/dL (7-17); Calcium 8.9 mg/dL (8.4-10.2); Carbon Dioxide 24 mmol/L (22-32); Chloride 103 mmol/L (98-107); Estimated Glomerular Filt Rate > 60 mL/min (>60); Globulin 3.6 g/dL (1.7-4.1); Glucose 127 mg/dL (80-110); HEMOLYSIS < 15 (0-50); Potassium 3.7 mmol/L (3.4-5.1); Sodium 136 mmol/L (137-145); Total Protein 7.2 g/dL (6.3-8.2)
--- NOTE | 2023-06-04 13:17 | ED.RECABL ---
HPI - Recheck/Abnormal Lab/Rx General Chief Complaint: Recheck/Abnormal Lab/Rx Stated Complaint: + blood cultures Time Seen by Provider: 06/04/23 12:25 Source: patient and family Mode of arrival: Wheelchair History of Present Illness HPI narrative: 87-year-old female presents because she received a diagnosis of positive blood cultures. Patient was seen yesterday for cold chills, malaise, mild confusion. Had left lower lobe lobectomy 05/15/2023 with lymph node resection for tumor removal. Patient states she was told she had stage I cancer and no further treatment needed to be performed. She is been healing well since her surgery. Last night patient had a thorough workup which revealed a mild elevation white blood cell count, urinary tract infection, small loculated left-sided pleural effusion. She was discharged on Augmentin. Today microbiology called stating that patient's anaerobic blood culture was positive for gram-positive cocci. Patient was contacted, she stated that she is still feeling very poorly with rigors, cold sweats, nausea, and mild confusion. She was told to come back in for evaluation and treatment. Related Data Home Medications Medication Instructions Recorded Confirmed coenzyme Q10 [Ultra CoQ10] See Rx Instructions .Route .COMPLEX 02/16/23 06/04/23 glucosamine HCl 1,500 mg PO BID joints 02/16/23 06/04/23 cyclosporine 0.05 % eye drops See Rx Instructions .Route .COMPLEX 03/30/23 06/04/23 (Restasis MultiDose) acetaminophen 325 mg tablet 650 mg PO PRN PRN Pain (Scale 06/04/23 06/04/23 Score 4-6) celecoxib 200 mg capsule 200 mg PO BID 06/04/23 06/04/23 Previous Rx's Medication Instructions Recorded multivitamin (Multiple Vitamins 1 tab PO DAILY #90 tabs 05/02/18 tablet) amlodipine 5 mg tablet See Rx Instructions .Route 03/30/23 .COMPLEX #90 tabs losartan 50 mg tablet See Rx Instructions .Route 03/30/23 .COMPLEX #90 tabs Allergies Allergy/AdvReac Type Severity Reaction Status Date / Time neomycin Allergy Mild ITCHING Verified 06/03/23 18:32 Penicillins Allergy Mild RASH, GI Verified 06/03/23 18:32 UPSET morphine AdvReac Mild INTOLERANT Verified 06/03/23 18:32 Review of Systems Review of Systems Narrative: CONSTITUTIONAL-reports: Rigors, chills, fatigue Denies: fever HEENT- Denies: sore throat, nosebleed, vision changes RESPIRATORY- Denies: shortness of breath, cough, wheezing CARDIAC- Denies: chest pain, edema, orthopnea GI- Reports: nausea Denies: abdominal pain, vomiting, constipation, diarrhea - Denies: frequency, dysuria, hematuria, flank pain MSK- Denies: extremity pain, extremity swelling, joint pain, joint swelling SKIN- Denies: rash, itching, burn, swelling NEUROLOGICAL- Denies: headache, numbness, weakness, dizziness PSYCHIATRIC- Denies: anxiety, depression, suicidal ideation, homicidal ideation Patient History Medical History Atrophic vulvovaginitis Bilateral kidney stones Chicken pox (~1942) Coronary artery disease (~2005) Headache (~2009) Hearing deficit History of heart attack History of kidney stones History of urinary incontinence (~1999) Hyperlipidemia Hypertension (~1979) Mass of left lung Mumps (~1944) Osteoarthritis (~1999) Osteoporosis Ruptured tympanic membrane (~1989) Skin cancer (~2006) Tinnitus (~1979) Vision disorder Surgical History History of cataract removal with insertion of prosthetic lens (10/26/15) History of cystoscopy (~2012) History of eye surgery (~1979) History of knee replacement (~2017) History of urologic surgery (03/14/23) History of vein stripping (~1977) Status post arthroscopy (~01/2013) Status post colonoscopy (~12/2003) Status post dilation and curettage (~1957) Status post vaginal hysterectomy (~1978) Ureteral stone (~2014) Family History Father No problems noted. Grandfather No problems noted. Grandmother No problems noted. Mother No problems noted. Grandfather No problems noted. Grandmother No problems noted. Social History marital status: number of children: 3 household members: none lives independently: Yes caregiver/support person: Yes (son and daughter in law live across the street ) housing: house occupational status: unemployed (retired) Smoking Status: Former smoker alcohol intake: former substance use type: does not use caffeine: Yes Type(s) of exercise: bicycling and other frequency: 1-2 times per week duration: > 90 minutes/day Smoking Status: Former smoker alcohol intake frequency: holidays/special occasions only Substance Use Type: does not use Exam Initial Vital Signs Initial Vital Signs: Vital Signs Temperature 97.7 F 06/04/23 12:40 Pulse Rate 63 06/04/23 12:40 Respiratory Rate 20 06/04/23 12:40 Blood Pressure 118/54 L 06/04/23 12:40 Pulse Oximetry 99 06/04/23 12:40 Oxygen Delivery Method Room Air 06/04/23 12:40 Const: Well-nourished, Well-developed, appears stated age Eyes: PERRL, EOMI, conjunctiva normal ENT: Atraumatic, dentition normal, mucous membranes moist Cardiac: regular rate, regular rhythm RESP: unlabored, clear bilaterally, no wheezing GI: Atraumatic, soft, nontender, nondistended, no rebound, no guarding MSK: Atraumatic, full range of motion, pulses equal Skin: Warm, Dry, intact, no rashes, surgical sites healing well (clean, dry, intact) Neuro: AO x3, CN II-XII grossly intact, moves all extremities Psych: affect normal, mood normal, not suicidal, not homicidal Course Course Course Narrative: Ill-appearing but not acutely toxic patient presenting for positive anaerobic gram-positive cocci. Patient continues to feel very poorly and has had no improvement since yesterday. She has not started on her oral antibiotics, however she did receive IV antibiotics while in the emergency department yesterday. Vitals reviewed, we will obtain repeat laboratory work and blood cultures. We will continue antibiotics in meantime. Orders Ordered: Acetaminophen (Acetaminophen 325 Mg Tablet) 650 mg PO Q6H PRN PRN Reason: Fever/Mild Pain (1-3) Last Admin: 06/05/23 04:48 Dose: 650 mg Documented By: Admin: 06/04/23 21:28 Dose: 650 mg Documented By: FR Acetaminophen (Acetaminophen 325 Mg Tablet) 650 mg PO PRN PRN PRN Reason: Pain (Scale Score 4-6) Amlodipine Besylate (Amlodipine 5 Mg Tablet) 5 mg PO DAILY REPLACED BY [facility] Heparin Sodium (Porcine) (Heparin 5,000 Unit/Ml Vial) 5,000 unit SUBCUT BID REPLACED BY [facility] Last Admin: 06/04/23 21:28 Dose: 5,000 unit Documented By: Sodium Chloride (Normal Saline 0.9%) 1,000 mls @ 100 mls/hr IV CONT REPLACED BY [facility] Last Admin: 06/05/23 04:49 Dose: 100 mls/hr Documented By: Infusion: 06/05/23 03:17 Dose: 100 mls/hr Documented By: Admin: 06/04/23 17:17 Dose: 100 mls/hr Documented By: RENETTA Vancomycin HCl (Vancomycin) 1,250 mg in 250 mls @ 250 mls/hr IV Q24H REPLACED BY [facility] Last Infusion: 06/04/23 18:17 Dose: 0 mls/hr Documented By: Admin: 06/04/23 17:17 Dose: 250 mls/hr Documented By: RENETTA Losartan Potassium (Losartan 50 Mg Tablet) 50 mg PO DAILY REPLACED BY [facility] Multivitamins (Multivitamin 1 Tablet) 1 tab PO DAILY REPLACED BY [facility] Ondansetron HCl (Ondansetron 4 Mg/2 Ml Inj) 4 mg IV Q8HR PRN PRN Reason: Nausea And Vomiting Sennosides (Sennosides 8.6 Mg Tablet) 17.2 mg PO BEDTIME REPLACED BY [facility] Last Admin: 06/04/23 21:27 Dose: 17.2 mg Documented By: Vancomycin HCl (Vancomycin Trough) 1 request MISC 1530 REPLACED BY [facility] Stop: 06/07/23 15:31 Discontinued Medications Acetaminophen (Acetaminophen 325 Mg Tablet) 975 mg PO NOW ONE Stop: 06/04/23 15:16 Last Admin: 06/04/23 15:20 Dose: 975 mg Documented By: RONAL Ceftriaxone Sodium 1,000 mg/ (Sodium Chloride) 100 mls @ 200 mls/hr IV NOW ONE Stop: 06/04/23 13:27 Last Infusion: 06/04/23 14:33 Dose: 0 mls/hr Documented By: Admin: 06/04/23 14:00 Dose: 200 mls/hr Documented By: RONAL Sodium Chloride (Normal Saline 0.9%) 1,000 mls @ 1,000 mls/hr IV BOLUS ONE Stop: 06/04/23 15:00 Last Infusion: 06/04/23 17:18 Dose: 0 mls/hr Documented By: Admin: 06/04/23 14:03 Dose: 1,000 mls/hr Documented By: MPO Non-Formulary Medication (Glucosamine Hcl) 1,500 mg PO BID REPLACED BY [facility] Last Admin: 06/04/23 22:27 Dose: Not Given Documented By: FR Non-Formulary Medication (Glucosamine Hcl) 1,500 mg PO DAILY REPLACED BY [facility] Reevaluation(s) Reevaluation #1: Laboratory work reviewed, patient does seem to have an improving white blood cell count, however lactic acid has increased 0.3. Patient is now shivering with severe chills. Temperature increasing, however not yet fever. Will give tylenol. Will admit for further IV antibiotics until repeat blood cultures result. Vital Signs Vital signs: Vital Signs - 8 hr 06/04/23 12:40 06/04/23 14:59 06/04/23 15:20 Temperature 97.7 F 99 F 99 F Pulse Rate 63 89 Respiratory Rate 20 Blood Pressure 118/54 L 138/70 Pulse Oximetry 99 Oxygen Delivery Method Room Air MDM - Recheck/Abnormal Lab/Rx Lab Data 06/05/23 04:35 06/05/23 04:35 Labs: Lab Results 06/04/23 06/04/23 06/04/23 Range/Units 13:00 13:00 13:00 WBC 11.0 (4.5-11.0) X10^3/uL RBC 4.00 (4.0-5.2) X10^6/uL Hgb 12.2 (12.0-16.0) g/dL Hct 36.3 (36-46) % MCV 90.5 (80-100) fL MCH 30.5 (26-34) PG MCHC 33.7 (30-36) % RDW 14.5 (11.6-14.8) % Plt Count 348 (150-400) X10^3/uL Neut % (Auto) 84.0 H (50-75) % Lymph % (Auto) 7.4 L (25-40) % [facility] % (Auto) 8.5 (3-14) % Eos % (Auto) 0.0 L (2-4) % Baso % (Auto) 0.1 (0-2) % Neut # (Auto) 9200 H (2738-9429) /uL Lymph # (Auto) 800 L (8324-6282) /uL [facility] # (Auto) 900 (0-900) /uL Eos # (Auto) 0 (0-450) /uL Baso # (Auto) 0 (0-100) /uL Sodium 136 L (137-145) mmol/L Potassium 3.7 (3.4-5.1) mmol/L Chloride 103 (98-107) mmol/L Carbon Dioxide 24 (22-32) mmol/L BUN 19 H (7-17) mg/dL Creatinine 0.85 (0.52-1.04) mg/dL Estimated GFR > 60 (>60) mL/min BUN/Creatinine Ratio 22.4 H (6-22) Glucose 127 H (80-110) mg/dL Lactate 1.3 (0.7-2.1) mmol/L Calcium 8.9 (8.4-10.2) mg/dL Total Bilirubin 0.4 (0.2-1.3) mg/dL AST 26 (14-36) IU/L ALT 22 (<35) IU/L Alkaline Phosphatase 99 (38-126) U/L Total Protein 7.2 (6.3-8.2) g/dL Albumin 3.6 (3.5-5.0) g/dL Globulin 3.6 (1.7-4.1) g/dL Albumin/Globulin Ratio 1.0 (1.0-2.8) Discharge Plan Departure Patient Disposition: Admitted As Inpatient Clinical Impression: Blood bacterial culture positive, Rigors Admit Date/Time: 06/04/23 15:22 Admit Provider: Zacarias Sol
[2023-06-04 13:18] LABS: Lactate (Lactic Acid) 1.3 mmol/L (0.7-2.1)
[2023-06-04] MEDS: cefTRIAXone 1,000 MG in SODIUM CHLORIDE 0.9% 100 ML 200 MG IV (14:00)
[2023-06-04] MEDS: SODIUM CHLORIDE 0.9% 1,000 ML 1000 ML IV (14:03)
[2023-06-04 14:59] VITALS: BP 138/70; PULSE 89; TEMP 37.2
[2023-06-04 15:20] VITALS: TEMP 37.2
[2023-06-04] MEDS: ACETAMINOPHEN 325 MG TABLET 975 MG PO (15:20)
--- NOTE | 2023-06-04 16:16 | DI.CT.S_ITS ---
PROCEDURE: CT ABDOMEN PELVIS WO CON INDICATIONS: known history of kidney stones on left, right sided stent TECHNIQUE: Axial sections were acquired from the lung bases to the pubic symphysis. Coronal and sagittal reformats were performed. For radiation dose reduction, the following was used: automated exposure control, adjustment of mA and/or kV according to patient size. COMPARISON: [facility], CT, CT ABDOMEN PELVIS WO/W CON, 02/20/2023, 12:54. [facility], CT, CT ANGIO CHEST PE PROTOCOL, 06/03/2023, 20:52. FINDINGS: Image quality: Excellent. Lung bases: There is a small left-sided pleural effusion. A small hiatal hernia is incidentally noted. Heart: No significant findings. URINARY: Right Kidney: Nonobstructing right-sided kidney stones are seen that measure up to 2 mm. There is at least moderate right-sided hydronephrosis. Right Ureter: At least moderate right-sided hydroureter can be seen. No obstructing stone is seen. Left Kidney: Nonobstructing left-sided kidney stones are seen that measure up to 5 mm and 350 Hounsfield units. Hyperdensity can be seen within the left renal collecting system. There is mild left-sided hydronephrosis. Left Ureter: No hydroureter. Bladder: Normal wall thickness. No stones. ABDOMEN: Liver: Unremarkable. Gallbladder: A gallstone is seen within the gallbladder. No additional CT findings of cholecystitis are seen. Biliary ducts: Unremarkable. Pancreas: Unremarkable. Spleen: Unremarkable. Adrenal Glands: Unremarkable. Stomach and Bowel: Stomach, small bowel loops, and colon are unremarkable. A normal appendix is noted. Peritoneum: No abnormal intraperitoneal fluid. No free air. Ventral Wall: No hernia. Abdominal Nodes: No enlarged retroperitoneal or mesenteric lymph nodes. Vessels: Aorta and inferior vena cava are normal in size. Atherosclerotic calcification is noted. PELVIS: Pelvic Organs: This patient is status post hysterectomy. No adnexal masses are seen. Pelvic Nodes: Unremarkable. Miscellaneous: No inguinal hernias are seen. Left-sided sacral stimulator leads are seen, with a right-sided power pack. Bones: Iofy-[id number] dextroconvex thoracolumbar scoliosis is seen. Age-appropriate bony degenerative changes are seen. IMPRESSION: Bilateral nonobstructing kidney stones are seen. There is right-sided hydroureter and hydronephrosis, which is mildly worse than on the 02/20/2023 examination. No associated ureteral stone is seen. Stable mild left-sided hydronephrosis is seen. Hyperdensity can be seen within the left renal collecting system, which is most likely related to excreting contrast in this patient with IV contrast given within the last 24 hours. Small left-sided pleural effusion again seen. Additional findings: Small hiatal hernia Gallstone [id number]-[id number] dextroconvex thoracolumbar scoliosis. Sacral stimulator Normal appendix Hysterectomy Dictated by: Harry Roberts M.D. on 06/04/2023 at 15:42 Approved by: Harry Roberts M.D. on 06/04/2023 at 15:48
[2023-06-04 16:21] VITALS: BMI 24.7
[2023-06-04 16:30] VITALS: BP 129/52; PULSE 82; RESP 22; TEMP 37.2; O2SAT 93
[2023-06-04] MEDS: VANCOMYCIN 1,250 MG/250 ML PIGGYBACK 250 MG IV (17:17)
[2023-06-04] MEDS: SODIUM CHLORIDE 0.9% 1,000 ML 100 ML IV (17:17)
[2023-06-04 20:00] VITALS: BP 132/61; PULSE 62; RESP 28; TEMP 36.6; O2SAT 97
--- NOTE | 2023-06-04 20:39 | P.HP_ITS ---
History of Present Illness History of Present Illness Date Patient Seen: 06/04/23 Time Patient Seen: 15:00 Chief complaint: + blood cultures Narrative: Ms. Brasher is an 87W with PMH CAD, lung cancer s/p left lobe lobectomy on 05/15, kidney stones, HTN, who presents to the hospital with chills, rigors, confusion. She has gold history of kidney stones and she s/p lithotripsy and stent earlier this year on the right kidney, with stent now removed. She presented to the ED initially yesterday and was found to have a UTI and discharged home. She had one bottle out of four return positive for gram positive cocci and was called to return to the ED. She states she is not feeling much better. In the ED workup was done, vitals notable for afebrile, heart rate 60s, blood pressure 110s/50s, sats 99% room air. Labs reviewed by me and notable for WBC 11, hgb 12.2, plts 348. Na 136, BUN 19, creatinine 0.85. Lactate 1.3. CTA chest reviewed and notable for small loculated left pleural effusion. CT abdomen with bilateral kidney stones, and right and left mild hydronephrosis. Cultures from yesterday show enterococcus in the urine and gram positive cocci in the blood. She was ordered for antibiotics and admitted for further treatment. [facility] Medical History Atrophic vulvovaginitis Bilateral kidney stones Chicken pox (~194) Coronary artery disease (~2005) Headache (~2009) Hearing deficit History of heart attack History of kidney stones History of urinary incontinence (~1999) Hyperlipidemia Hypertension (~1979) Mass of left lung Mumps (~1945) Osteoarthritis (~1999) Osteoporosis Ruptured tympanic membrane (~1989) Skin cancer (~2006) Tinnitus (~1979) Vision disorder Surgical History History of cataract removal with insertion of prosthetic lens (10/26/15) History of cystoscopy (~2012) History of eye surgery (~1979) History of knee replacement (~2017) History of urologic surgery (03/14/23) History of vein stripping (~1977) Status post arthroscopy (~01/2013) Status post colonoscopy (~12/2003) Status post dilation and curettage (~1957) Status post vaginal hysterectomy (~1978) Ureteral stone (~2014) Family History Father No problems noted. Grandfather No problems noted. Grandmother No problems noted. Mother No problems noted. Grandfather No problems noted. Grandmother No problems noted. Social History marital status: number of children: 3 household members: none lives independently: Yes caregiver/support person: Yes (son and daughter in law live across the street ) housing: house occupational status: unemployed (retired) Smoking Status: Former smoker alcohol intake: former substance use type: does not use caffeine: Yes Type(s) of exercise: bicycling and other frequency: 1-2 times per week duration: > 90 minutes/day Meds Home Medications and Allergies Home Medications Medication Instructions Recorded Confirmed Type multivitamin (Multiple Vitamins 1 tab PO DAILY #90 tabs 05/02/18 06/04/23 Rx tablet) coenzyme Q10 [Ultra CoQ10] See Rx Instructions .Route .COMPLEX 02/16/23 06/04/23 History glucosamine HCl 1,500 mg PO BID joints 02/16/23 06/04/23 History amlodipine 5 mg tablet See Rx Instructions .Route 03/30/23 06/04/23 Rx .COMPLEX #90 tabs cyclosporine 0.05 % eye drops See Rx Instructions .Route .COMPLEX 03/30/23 06/04/23 History (Restasis MultiDose) losartan 50 mg tablet See Rx Instructions .Route 03/30/23 06/04/23 Rx .COMPLEX #90 tabs acetaminophen 325 mg tablet 650 mg PO PRN PRN Pain (Scale 06/04/23 06/04/23 History Score 4-6) celecoxib 200 mg capsule 200 mg PO BID 06/04/23 06/04/23 History Allergies Allergy/AdvReac Type Severity Reaction Status Date / Time neomycin Allergy Mild ITCHING Verified 06/03/23 18:32 Penicillins Allergy Mild RASH, GI Verified 06/03/23 18:32 UPSET morphine AdvReac Mild INTOLERANT Verified 06/03/23 18:32 Review of Systems Review of Systems Narrative: 14 systems reviewed and negative aside from what is noted in HPI Exam Vital Signs (past 8 hours): - 06/04/23 12:40 06/04/23 14:59 06/04/23 15:20 Temperature 97.7 F 99 F 99 F Pulse Rate 63 89 Respiratory Rate 20 Blood Pressure 118/54 L 138/70 Pulse Oximetry 99 Oxygen Delivery Method Room Air Oxygen Flow Rate 06/04/23 16:30 06/04/23 16:36 06/04/23 20:00 Temperature 99.0 F 97.9 F Pulse Rate 82 62 Respiratory Rate 22 28 H Blood Pressure 129/52 L 132/61 Pulse Oximetry 93 97 Oxygen Delivery Method Room Air Oxygen Flow Rate 0 Oxygen Delivery Method Room Air Oxygen Flow Rate 0 Narrative Exam Narrative: GEN: no acute distress CV: regular rate and rhythm PULM: clear bilaterally ABD: soft, nontender, nondistended EXT: warm and well perfused Objective Labs 06/04/23 13:00 06/04/23 13:00 Labs: Laboratory Results - last 24 hr 06/04/23 06/04/23 06/04/23 13:00 13:00 13:00 WBC 11.0 RBC 4.00 Hgb 12.2 Hct 36.3 MCV 90.5 MCH 30.5 MCHC 33.7 RDW 14.5 Plt Count 348 Neut % (Auto) 84.0 H Lymph % (Auto) 7.4 L Leon % (Auto) 8.5 Eos % (Auto) 0.0 L Baso % (Auto) 0.1 Neut # (Auto) 9200 H Lymph # (Auto) 800 L Leon # (Auto) 900 Eos # (Auto) 0 Baso # (Auto) 0 Sodium 136 L Potassium 3.7 Chloride 103 Carbon Dioxide 24 BUN 19 H Creatinine 0.85 Estimated GFR > 60 BUN/Creatinine Ratio 22.4 H Glucose 127 H Lactate 1.3 Calcium 8.9 Total Bilirubin 0.4 AST 26 ALT 22 Alkaline Phosphatase 99 Total Protein 7.2 Albumin 3.6 Globulin 3.6 Albumin/Globulin Ratio 1.0 Assessment & Plan Assessment & Plan narrative: 1. UTI and bacteremia -suspect she has a UTI and bacteremia from same source, enterococcus infection -she has had pansensitive enterococcus in the past in UTI -for now will treat with vancomycin until sensis result -repeat blood cultures already drawn today -with short course since onset, no embolization, only one blood culture, no known valve disease, and a known source of infection her RYAN score for concern for endocarditis is quite low at 0 and for now no indication for echo -CT shows mild hydronephrosis, spoke to urology corporate communications specialist who recommends fully medically treating with antibiotic and outpatient follow up for treatment of stones 2. s/p right lobe lobectomy -has small loculated pleural effusion -appearance is to small to tap -has no respiratory symptoms, so strongly doubt this is source of infection, especially if blood cultures ultimately match with urine culture 3. Hypertension -hold anti-hypertensives I have discussed plan and obtained history from the patient. I have discussed plan of care with ED physician and bedside nurse. I have reviewed labs, imaging. CODE: Full Proxy: Ariadnalondon Ravin, daughter Quality [facility] - Meds 'Current medications' to include all prescriptions, [id number] products, herbals, cannabis/cannabidiol products, and vitamin/mineral/dietary (nutritional) supplements. I have utilized all available resources to obtain, update, or review the patient?s current medications. [If Yes, STOP here]: Yes
[2023-06-04] MEDS: SENNOSIDES 8.6 MG TABLET 17.2 MG PO (21:27)
[2023-06-04] MEDS: HEPARIN 5,000 UNIT/ML VIAL 5000 UNIT SUBCUT (21:28)
[2023-06-04] MEDS: ACETAMINOPHEN 325 MG TABLET 650 MG PO (21:28)
[2023-06-05] VITALS (8 sets, daily range): BP systolic 131–166; BP diastolic 60–89; PULSE 62–80; RESP 16–28; TEMP 36.2–38.1; O2SAT 95–99
[2023-06-05] MEDS: ACETAMINOPHEN 325 MG TABLET 650 MG PO ×2 (04:48→17:57)
[2023-06-05] MEDS: SODIUM CHLORIDE 0.9% 1,000 ML 100 ML IV (04:49)
[2023-06-05 05:08] LABS: Add Manual Diff / Slide Review NO; Basophils Absolute Auto 0 /uL (0-100); Basophils Percent Auto 0.2 % (0-2); Eosinophils Absolute Auto 0 /uL (0-450); Eosinophils Percent Auto 0.1 % (2-4); Hematocrit 34.2 % (36-46); Hemoglobin 11.4 g/dL (12.0-16.0); Lymphocytes Absolute Auto 1200 /uL (1100-4500); Lymphocytes Percent Auto 10.7 % (25-40); Mean Corpuscular HGB Conc 33.4 % (30-36); Mean Corpuscular Hemoglobin 30.1 PG (26-34); Mean Corpuscular Volume 90.2 fL (80-100); Monocytes Absolute Auto 1400 /uL (0-900); Monocytes Percent Auto 12.3 % (3-14); Neutrophils Absolute Auto 8500 /uL (1500-7000); Neutrophils Percent Auto 76.7 % (50-75); Platelet Count 306 X10^3/uL (150-400); Red Blood Cell Count 3.79 X10^6/uL (4.0-5.2); Red Cell Distribution Width 14.5 % (11.6-14.8); White Blood Cell Count 11.1 X10^3/uL (4.5-11.0)
[2023-06-05 05:26] LABS: BUN Creatinine Ratio 25.4 (6-22); Blood Urea Nitrogen 15 mg/dL (7-17); Calcium 8.4 mg/dL (8.4-10.2); Carbon Dioxide 22 mmol/L (22-32); Chloride 108 mmol/L (98-107); Estimated Glomerular Filt Rate > 60 mL/min (>60); Glucose 95 mg/dL (80-110); HEMOLYSIS < 15 (0-50); Potassium 3.3 mmol/L (3.4-5.1); Sodium 136 mmol/L (137-145)
[2023-06-05] MEDS: LOSARTAN 50 MG TABLET PO (08:45)
[2023-06-05] MEDS: HEPARIN 5,000 UNIT/ML VIAL 5000 UNIT SUBCUT ×2 (08:45→20:17)
[2023-06-05] MEDS: POTASSIUM CHLORIDE 20 MEQ TAB 40 MEQ PO ×2 (08:45→14:05)
[2023-06-05] MEDS: MULTIVITAMIN 1 TABLET 1 TAB PO (08:45)
[2023-06-05] MEDS: AMLODIPINE 5 MG TABLET PO (08:45)
--- NOTE | 2023-06-05 10:21 | DI.ECHO.S_ITS ---
[facility] +---------+ : : [address] : : : : [id number] : : : : Phone: [phone]+ Echocardiogram Report + + :Name: ROD GALVIN Study Date: 06/05/2023 Height: 64 in : [facility] ReadingLocation: Weight: 143 lb : : Gender: Female BSA: 1.7 m2 : :: 1935 Age: 87 yrs BP: 131/62 mmHg: :Reason For Study: Bacteremia : :Ordering Physician: YAN, : :SUGAR Performed By: Gabrielle Garcia : :Referring: SUGAR HEREDIA : + + Interpretation Summary Normal sinus rhythm. Normal LV size and moderately increased wall thickness. Normal wall motion LV systolic function. Ejection fraction is 60-65%. Stage I diastolic dysfunction. Normal chamber sizes. Aortic sclerosis without stenosis. Otherwise no valvular abnormalities. Moderate left pleural effusion. No prior study available for comparison. Procedure: A two-dimensional transthoracic echocardiogram with color flow and Doppler was performed. The study quality was technically adequate. The patient had an echocardiogram, but there is no comparison study available. The patient was in normal sinus rhythm during the exam. The patient had occasional PVCs during the exam. Left Ventricle: The left ventricle is normal in size. The ejection fraction is estimated to be 60-65%. Diastolic parameters suggest a relaxation abnormality of the left ventricle, consistent with probable normal filling pressures. Right Ventricle: The right ventricle is normal in size and function. Atria: The left atrial size is normal. Right atrial size is normal. There is no Doppler evidence for an interatrial shunt. Mitral Valve: The mitral valve leaflets are slightly calcified. There is no mitral valve stenosis. There is mild mitral regurgitation. Aortic Valve: The aortic valve is trileaflet. The aortic valve opens well. There is moderate aortic valve sclerosis. There is no aortic valve stenosis. There is trace aortic regurgitation. Tricuspid Valve: The tricuspid valve is normal. There is no tricuspid stenosis. There is mild tricuspid regurgitation. The right ventricular systolic pressure is estimated to be at least 30 mmHg based on an estimated right atrial pressure of 3 mm Hg. Pulmonic Valve: The pulmonic valve is not well visualized. There is no pulmonic valvular stenosis. There is trace pulmonic regurgitation. Great Vessels: The aortic root is normal size. The ascending aorta is at the upper limits of normal in size. The pulmonary artery is normal size. The IVC is of normal diameter and collapses greater than 50% with a sniff. This suggests a low right atrial pressure of 3 mm Hg. Pericardium/ Pleura There is a trivial pericardial effusion noted. There is a moderate left-sided pleural effusion. MMode/2D Measurements & Calculations LVIDd: 4.3 cm LVOT diam: 2.0 cm LVIDs: 3.2 cm Ao root diam: 3.1 cm FS: 25.6 % asc Aorta Diam: 3.5 cm IVSd: 1.4 cm LVPWd: 1.1 cm LV astorga. diameter/BSA (cm/m^2): 2.5 LV sys. diameter/BSA (cm/m^2): 1.9 LA A2 area: 17.9 cm2 RA long axis: 5.3 cm LA A4 area: 14.0 cm2 RA area: 12.6 cm2 LA length (vol): 4.9 cm RA vol: 25.4 ml LA vol: 43.4 ml RA : 15.0 ml/m2 LA vol index: 25.6 ml/m2 RVD1 (basal): 3.1 cm LVLs ap4: 6.7 cm LVLd ap2: 7.3 cm TAPSE_phl: 2.3 cm LVLs ap2: 6.9 cm Doppler Measurements & Calculations Ao V2 max: 129.4 cm/sec LVOT Max Samuel: 127.5 cm/sec Ao V2 mean: 88.8 cm/sec LV V1 max P.5 mmHg Ao max P.0 mmHg LV V1 VTI: 25.4 cm Ao mean P.6 mmHg SAMUEL(I,D): 3.1 cm2 Ao V2 VTI: 25.7 cm SAMUEL(V,D): 3.1 cm2 sev ratio: 0.99 SAMUEL indexed to BSA (cm^2/m^2): 1.8 MV E max samuel: 90.0 cm/sec TR max samuel: 258.5 cm/sec MV A max samuel: 110.0 cm/sec TR max P.9 mmHg MV E/A: 0.82 Med Peak E' Samuel: 6.9 cm/sec E/E' med: 13.1 Lat Peak E' Samuel: 10.5 cm/sec E/E' lat: 8.6 E/e' average: 10.9 MV dec time: 0.17 sec SV(LVOT): 79.6 ml AV VR_phl: 0.99 SAMUEL(VTI)/BSA_phl: 1.8 Electronically signed by: Nasima Zapata M.D. on Reading Physician:06/05/2023 05:58 PM
--- NOTE | 2023-06-05 15:20 | CM.DANOTE ---
Addendum entered by MARY Echevarria 06/05/23 15:47: ADD: Dr Sol anticipates patient will need 12 additional days of IV ampicillin 1g however culture results have not been finalized (hopefully tomorrow?). PICC needs to be placed. Discussed with patient and her dtr Danica. Patient would like a referral to [facility], prefers not to discharge to SNF Explained out of pocket cost might be high with MCR/AARP coverage. Patient and dtr request quote when available from [facility] Will ask that [facility] social service agency director send this referral to [facility] 06.06.23 and present quote for home infusion to patient when available Original Note: Initial DCP Assessment Note Pt is an 87 yo female, resident of [place], arrives with +blood cultures, admitted for medical management of UTI and bacteremia w/IV abx PCP: Hillary Whitten Payer: MCR/AARP Met w/patient to introduce self and role. Patient fatigues easily today, but remains in good spirits. Patient is a villa conversationalist, says she lives alone but has her daughter across the street and lives on a block that takes care of each other Patient is indp at baseline and has only felt scared being alone at night time, very recently, when she has felt sick or in pain. Patient has a life alert button that is with her at all times and she has used in the past Patient explains she is still in pain from her recent lobectomy (lung ca dx) but feels it is slowly getting better. Patient anticipates she will be able to discharge home safely with her supportive family and friends. Patient doesn't feel she will need services but willing to discuss again if the doctor recommends MARY Montano Discharge Planning/Care Management CM Discharge Assessment Start: 06/05/23 15:18 Freq: Status: Active Protocol: Document 06/05/23 15:18 GETACHEW (Rec: 06/05/23 15:20 GETACHEW [id number]) Discharge Planning Assessment Assigned Audio Specialist MARY Hou DPOA/Assigned Designee Name Danica Alicia, daughter Contact Information [phone] Advance Directives? Yes Advance Directives on File Yes History Provided By Patient,Family Member Prior Living Arrangements House Household Members none Type of transporation used prior to Drives own vehicle admit Independent with ADL's Yes Is patient alert and oriented? Yes Patient/Family Preference Home with Home Health Barriers to Discharge Yes Comment Patient requires ongoing IV abx. Home w/home infusion vs SNF (?)
--- NOTE | 2023-06-05 15:22 | PM.PN.1 ---
Subjective Subjective Date Patient Seen: 06/05/23 Time Patient Seen: 08:00 Interval history: She still feels fatigued. No fevers chills, no abdominal pain, no shortness of breath. Exam Vital Signs (past 8 hours): - 06/05/23 08:00 06/05/23 12:00 Temperature 98.5 F 98 F Pulse Rate 62 71 Respiratory Rate 16 16 Blood Pressure 131/62 166/75 H Pulse Oximetry 96 99 Oxygen Delivery Method Room Air Oxygen Flow Rate 0 Narrative Exam Narrative: GEN: no acute distress CV: regular rate and rhythm PULM: clear bilaterally ABD: soft, nontender, nondistended EXT: warm and well perfused Objective Labs 06/05/23 04:35 06/05/23 04:35 Labs: Laboratory Results - last 24 hr 06/05/23 06/05/23 04:35 04:35 WBC 11.1 H RBC 3.79 L Hgb 11.4 L Hct 34.2 L MCV 90.2 MCH 30.1 MCHC 33.4 RDW 14.5 Plt Count 306 Neut % (Auto) 76.7 H Lymph % (Auto) 10.7 L [place] % (Auto) 12.3 Eos % (Auto) 0.1 L Baso % (Auto) 0.2 Neut # (Auto) 8500 H Lymph # (Auto) 1200 [place] # (Auto) 1400 H Eos # (Auto) 0 Baso # (Auto) 0 Sodium 136 L Potassium 3.3 L Chloride 108 H Carbon Dioxide 22 BUN 15 Creatinine 0.59 Estimated GFR > 60 BUN/Creatinine Ratio 25.4 H Glucose 95 Calcium 8.4 PFSH Medical History Atrophic vulvovaginitis Bilateral kidney stones Chicken pox (~1943) Coronary artery disease (~2005) Headache (~2009) Hearing deficit History of heart attack History of kidney stones History of urinary incontinence (~1999) Hyperlipidemia Hypertension (~1979) Mass of left lung Mumps (~194) Osteoarthritis (~1999) Osteoporosis Ruptured tympanic membrane (~1989) Skin cancer (~2006) Tinnitus (~1979) Vision disorder Surgical History History of cataract removal with insertion of prosthetic lens (10/26/15) History of cystoscopy (~2012) History of eye surgery (~1979) History of knee replacement (~2017) History of urologic surgery (03/14/23) History of vein stripping (~1977) Status post arthroscopy (~01/2013) Status post colonoscopy (~12/2003) Status post dilation and curettage (~1957) Status post vaginal hysterectomy (~1978) Ureteral stone (~2014) Family History Father No problems noted. Grandfather No problems noted. Grandmother No problems noted. Mother No problems noted. Grandfather No problems noted. Grandmother No problems noted. Social History marital status: number of children: 3 household members: none lives independently: Yes caregiver/support person: Yes (son and daughter in law live across the street ) housing: house occupational status: unemployed (retired) Smoking Status: Former smoker alcohol intake: former substance use type: does not use caffeine: Yes Type(s) of exercise: bicycling and other frequency: 1-2 times per week duration: > 90 minutes/day Assessment & Plan Assessment & Plan narrative: 1. UTI and bacteremia -suspect she has a UTI and bacteremia from same source, enterococcus infection -she has had pansensitive enterococcus in the past in UTI -urine culture shows enterococcus with sensitivity to everything but tetracycline -for now will treat with vancomycin until sensis result -repeat blood cultures already drawn and so far negative -with short course since onset, no embolization, only one blood culture, no known valve disease, and a known source of infection her RYAN score for concern for endocarditis is quite low at 0 and no indication for MIKE unless TTE is abnormal -CT shows mild hydronephrosis, spoke to urology reproduction technician who recommends fully medically treating with antibiotic and outpatient follow up for treatment of stones -ECHO to evaluate for endocarditis -PICC ordered -suspect given urine sensitivities that she will have ampicillin sensitive enterococcus in the blood, in that case plan for ampicillin 1mg IV q6 with first day likely 06/04 if cultures remain negative 2. s/p right lobe lobectomy -has small loculated pleural effusion -appearance is to small to tap -has no respiratory symptoms, so strongly doubt this is source of infection, especially if blood cultures ultimately match with urine culture 3. Hypertension -hold anti-hypertensives I have discussed plan and obtained history from the patient. I have discussed plan of care with ED physician and bedside nurse. I have reviewed labs, imaging. CODE: Full Proxy: Ariadnalondon Alicia, daughter
[2023-06-05] MEDS: VANCOMYCIN 1,250 MG/250 ML PIGGYBACK 250 MG IV (16:57)
[2023-06-05] MEDS: SENNOSIDES 8.6 MG TABLET 17.2 MG PO (20:17)
[2023-06-05] MEDS: SODIUM CHLORIDE 0.9% FLUSH 10 ML IV (20:17)
[2023-06-06] VITALS: BP 150/59; PULSE 64; RESP 20; TEMP 36.9; O2SAT 97
[2023-06-06 04:00] VITALS: BP 150/74; PULSE 69; TEMP 37.2; O2SAT 97
[2023-06-06 04:52] LABS: Hematocrit 34.6 % (36-46); Hemoglobin 11.7 g/dL (12.0-16.0); Mean Corpuscular HGB Conc 33.8 % (30-36); Mean Corpuscular Hemoglobin 30.2 PG (26-34); Mean Corpuscular Volume 89.2 fL (80-100); Platelet Count 316 X10^3/uL (150-400); Red Blood Cell Count 3.88 X10^6/uL (4.0-5.2); Red Cell Distribution Width 14.2 % (11.6-14.8); White Blood Cell Count 9.5 X10^3/uL (4.5-11.0)
[2023-06-06 05:06] LABS: Blood Urea Nitrogen 13 mg/dL (7-17); Calcium 8.6 mg/dL (8.4-10.2); Carbon Dioxide 23 mmol/L (22-32); Chloride 108 mmol/L (98-107); Estimated Glomerular Filt Rate > 60 mL/min (>60); Glucose 94 mg/dL (80-110); HEMOLYSIS < 15 (0-50); Potassium 3.2 mmol/L (3.4-5.1); Sodium 137 mmol/L (137-145)
[2023-06-06 08:00] VITALS: BP 145/69; PULSE 69; RESP 15; TEMP 36.7; O2SAT 98
--- NOTE | 2023-06-06 09:56 | DI.RAD.S_ITS ---
PROCEDURE: XR CHEST FOR PICC 1V INDICATIONS: line placement COMPARISON: [facility], CR, XR CHEST 1V, 06/03/2023, 18:43. FINDINGS: PICC was placed by the intravenous therapy team from the left side. Fluoroscopic spot film demonstrates the tip of PICC projecting to the area of lateral left subclavian vein near left axilla. IMPRESSION: Tip of PICC projects to the area of lateral left subclavian vein near axilla and should be repositioned. Dictated by: Lc Prado M.D. on 06/06/2023 at 10:47 Approved by: Lc Prado M.D. on 06/06/2023 at 10:47
[2023-06-06] MEDS: HEPARIN 5,000 UNIT/ML VIAL 5000 UNIT SUBCUT ×2 (10:09→20:58)
[2023-06-06] MEDS: AMLODIPINE 5 MG TABLET PO (10:09)
[2023-06-06] MEDS: MULTIVITAMIN 1 TABLET 1 TAB PO (10:09)
[2023-06-06] MEDS: LOSARTAN 50 MG TABLET PO (10:09)
[2023-06-06] MEDS: SODIUM CHLORIDE 0.9% FLUSH 10 ML IV ×2 (10:10→21:06)
[2023-06-06 12:00] VITALS: BP 154/69; PULSE 67; RESP 16; TEMP 36.9; O2SAT 95
[2023-06-06] MEDS: AMPICILLIN 2,000 MG in SODIUM CHLORIDE 0.9% 100 ML 200 MG IV ×3 (12:57→20:58)
[2023-06-06] MEDS: CELECOXIB 200 MG CAPSULE PO ×2 (12:57→21:06)
[2023-06-06] MEDS: ACETAMINOPHEN 325 MG TABLET 650 MG PO ×2 (13:49→17:36)
--- NOTE | 2023-06-06 14:10 | CM.DPC ---
DCP Cont. CONCERT SINGER met with pt and dtr at bedside to discuss d/c plan home. Plan is for pt to d/c home tomorrow. Referral sent to [facility], pt/family will pay privately. Waiting on [facility] to give estimate of drug cost for family, and when they can come in for the teach. Will contiue to monitor.
[2023-06-06 14:30] LABS: Magnesium 2.1 mg/dL (1.6-2.3)
--- NOTE | 2023-06-06 14:49 | CM.DPC ---
Addendum entered and electronically signed by MARY Alfaro 06/06/23 15:29: [facility] will do afternoon dose at home w/family. Waiting for hard copy script from Dr. Zaman, will fax tomorrow. Dr. Ordoñez following. Original Note: DCP cont. [facility] will plan to see pt tomorrow, waiting to find out what time. Optimal plan would be for pt to receive her 9:50 dose here by staff here, and IS do the 1:50 dose at home w/family. Will update once confirmed.
[2023-06-06] MEDS: POTASSIUM CHLORIDE 20 MEQ TAB 40 MEQ PO (15:20)
[2023-06-06 16:00] VITALS: BP 136/64; PULSE 65; RESP 16; TEMP 37; O2SAT 96
[2023-06-06] MEDS: VANCOMYCIN 1,250 MG/250 ML PIGGYBACK 250 MG IV (16:25)
--- NOTE | 2023-06-06 16:52 | P.PN_ITS ---
Subjective Subjective Date Patient Seen: 06/05/23 Time Patient Seen: 10:30 Interval history: She still feels fatigued. No fevers chills, no abdominal pain, no shortness of breath. Exam Vital Signs (past 8 hours): - 06/06/23 12:00 Temperature 98.5 F Pulse Rate 67 Respiratory Rate 16 Blood Pressure 154/69 H Pulse Oximetry 95 Oxygen Flow Rate 0 Oxygen Delivery Method Room Air Oxygen Flow Rate 0 Narrative Exam Narrative: GEN: no acute distress CV: regular rate and rhythm PULM: clear bilaterally ABD: soft, nontender, nondistended EXT: warm and well perfused Objective Labs 06/06/23 04:40 06/06/23 04:40 Labs: Laboratory Results - last 24 hr 06/06/23 06/06/23 06/06/23 04:40 04:40 04:40 WBC 9.5 RBC 3.88 L Hgb 11.7 L Hct 34.6 L MCV 89.2 MCH 30.2 MCHC 33.8 RDW 14.2 Plt Count 316 Sodium 137 Potassium 3.2 L Chloride 108 H Carbon Dioxide 23 BUN 13 Creatinine 0.50 L Estimated GFR > 60 BUN/Creatinine Ratio 26.0 H Glucose 94 Calcium 8.6 Magnesium 2.1 PFSH Medical History Atrophic vulvovaginitis Bilateral kidney stones Chicken pox (~194) Coronary artery disease (~2005) Headache (~2009) Hearing deficit History of heart attack History of kidney stones History of urinary incontinence (~1999) Hyperlipidemia Hypertension (~1979) Mass of left lung Mumps (~194) Osteoarthritis (~1999) Osteoporosis Ruptured tympanic membrane (~1989) Skin cancer (~2006) Tinnitus (~1979) Vision disorder Surgical History History of cataract removal with insertion of prosthetic lens (10/26/15) History of cystoscopy (~2012) History of eye surgery (~1979) History of knee replacement (~2017) History of urologic surgery (03/14/23) History of vein stripping (~1977) Status post arthroscopy (~01/2013) Status post colonoscopy (~12/2003) Status post dilation and curettage (~1957) Status post vaginal hysterectomy (~1978) Ureteral stone (~2014) Family History Father No problems noted. Grandfather No problems noted. Grandmother No problems noted. Mother No problems noted. Grandfather No problems noted. Grandmother No problems noted. Social History marital status: number of children: 3 household members: none lives independently: Yes caregiver/support person: Yes (son and daughter in law live across the street ) housing: house occupational status: unemployed (retired) Smoking Status: Former smoker alcohol intake: former substance use type: does not use caffeine: Yes Type(s) of exercise: bicycling and other frequency: 1-2 times per week duration: > 90 minutes/day Assessment & Plan Assessment & Plan narrative: 1. UTI and bacteremia secondary to enterococcus. -suspect she has a UTI and bacteremia from same source, enterococcus infection -she has had pansensitive enterococcus in the past in UTI -urine culture shows enterococcus with sensitivity to everything but tetracycline -she has a reported penicillin allergy, though mild and patient does not actually recall. Will trial ampicillin now for a few doses while also continuing vancomycin tempoarily. -repeat blood cultures already drawn and so far negative -CT shows mild hydronephrosis, spoke to urology ground operations superintendent who recommends fully medically treating with antibiotic and outpatient follow up for treatment of stones -ECHO to evaluate for possible endocarditis was unremarkable -PICC placed today, though it was not placed in the SVC due to difficulties with placement per pharmacy laboratory technician, this should suffice for now with management. -for enterococcus bacteremia, treatment ideally will be with ampicillin 2g q4-6 hrs based on renal function (GFR estimated to be <50) for 2 weeks from 06/04 should there. 2. s/p right lobe lobectomy -has small loculated pleural effusion -appearance is to small to tap -has no respiratory symptoms, so strongly doubt this is source of infection, especially if blood cultures ultimately match with urine culture 3. Hypertension -continue to hold anti-hypertensive in the setting of bacteremia. 4. Hypokalemia - repleted toay with K of 3.2. I have discussed plan and obtained history from the patient. Additional history was obtained from discussion with daughter. I have discussed plan of care with bedside nurse and patient and family. I have reviewed labs, imaging. CODE: Full Proxy: Anshul Alicia, daughter Dispo: patient refuses SNF placement, will pay out of pocket for home infusion. If she tolerates ampicillin without allergy will plan for home tomorrow with home infusions.
[2023-06-06 20:00] VITALS: BP 130/50; PULSE 61; RESP 18; TEMP 36.3; O2SAT 96
[2023-06-06] MEDS: SENNOSIDES 8.6 MG TABLET 17.2 MG PO (20:58)
[2023-06-07] MEDS: AMPICILLIN 2,000 MG in SODIUM CHLORIDE 0.9% 100 ML 200 MG IV ×3 (00:59→08:14)
[2023-06-07] MEDS: ACETAMINOPHEN 325 MG TABLET 650 MG PO ×2 (01:00→06:34)
[2023-06-07 04:00] VITALS: BP 155/75; PULSE 63; RESP 17; TEMP 36.4; O2SAT 97
[2023-06-07] MEDS: TRAMADOL 50 MG TABLET PO (04:02)
[2023-06-07 06:49] LABS: BUN Creatinine Ratio 35.4 (6-22); Blood Urea Nitrogen 17 mg/dL (7-17); Calcium 8.6 mg/dL (8.4-10.2); Carbon Dioxide 24 mmol/L (22-32); Chloride 111 mmol/L (98-107); Estimated Glomerular Filt Rate > 60 mL/min (>60); Glucose 104 mg/dL (80-110); HEMOLYSIS < 15 (0-50); Potassium 3.6 mmol/L (3.4-5.1); Sodium 141 mmol/L (137-145)
[2023-06-07 08:00] VITALS: BP 134/55; PULSE 65; RESP 18; TEMP 36.6; O2SAT 97
[2023-06-07] MEDS: SODIUM CHLORIDE 0.9% FLUSH 10 ML IV (08:15)
[2023-06-07 08:21] VITALS: BP 134/55; PULSE 65
[2023-06-07] MEDS: LOSARTAN 50 MG TABLET PO (08:21)
[2023-06-07] MEDS: MULTIVITAMIN 1 TABLET 1 TAB PO (08:21)
[2023-06-07] MEDS: CELECOXIB 200 MG CAPSULE PO (08:22)
[2023-06-07] MEDS: AMLODIPINE 5 MG TABLET PO (08:22)
--- NOTE | 2023-06-07 08:42 | PM.DS.1 ---
History of Present Illness History of Present Illness Date Patient Seen: 06/07/23 Time Patient Seen: 08:42 Chief complaint: + blood cultures Narrative: Per admitting provider, Ms. Brasher is an 87W with PMH CAD, lung cancer s/p left lobe lobectomy on 05/15, kidney stones, HTN, who presents to the hospital with chills, rigors, confusion. She has gold history of kidney stones and she s/p lithotripsy and stent earlier this year on the right kidney, with stent now removed. She presented to the ED initially yesterday and was found to have a UTI and discharged home. She had one bottle out of four return positive for gram positive cocci and was called to return to the ED. She states she is not feeling much better. In the ED workup was done, vitals notable for afebrile, heart rate 60s, blood pressure 110s/50s, sats 99% room air. Labs reviewed by me and notable for WBC 11, hgb 12.2, plts 348. Na 136, BUN 19, creatinine 0.85. Lactate 1.3. CTA chest reviewed and notable for small loculated left pleural effusion. CT abdomen with bilateral kidney stones, and right and left mild hydronephrosis. Cultures from yesterday show enterococcus in the urine and gram positive cocci in the blood. She was ordered for antibiotics and admitted for further treatment. Discharge Providers Provider Date of admission: 06/04/23 15:22 Discharge Date: 06/07/23 Primary care physician: ANTOINE Vidal Discharge provider: Viet Mak DO Summary Hospital Course Discharge Diagnosis: 1. UTI and bacteremia secondary to enterococcus. 2. s/p right lobe lobectomy 3. Hypertension 4. Hypokalemia Hospital Course: This is an 87 year old female admitted with enterococcus bacteremia. Initially her BP were a bit soft and home BP medications were held, but with vancomycin provided initially this improved and she was restarted on her home losartan and amlodipine prior to discharge. CT did show mild hydronephrosis, though urology recommends outpatient follow up for stone treatment. Echocardiogram was performed and was unremarkable. Patient had previously noted penicillin allergy, but she could not recall this reaction. She was trialed on ampicillin which she tolerated without difficulty. A PICC line was placed, and she was set up to continue ampicillin for uncomplicated bacteremia with enterococcus for 2 weeks at discharge. Encouraged to follow up with primary care for monitoring after discharge, possible infectious disease referral. Time Spent with Patient Time spent: Greater than 30 minutes Exam Vital Signs (past 8 hours): - 06/07/23 04:00 06/07/23 08:21 06/07/23 08:00 Temperature 97.5 F L 97.9 F Pulse Rate 63 65 65 Respiratory Rate 17 18 Blood Pressure 155/75 H 134/55 L 134/55 L Pulse Oximetry 97 97 Oxygen Flow Rate 0 0 Oxygen Delivery Method Room Air Oxygen Flow Rate 0 Narrative Exam Narrative: GEN: no acute distress CV: regular rate and rhythm PULM: clear bilaterally ABD: soft, nontender, nondistended EXT: warm and well perfused Objective Labs 06/06/23 04:40 06/07/23 06:28 Labs: Laboratory Results - last 24 hr 06/06/23 06/07/23 04:40 06:28 Sodium 141 Potassium 3.6 Chloride 111 H Carbon Dioxide 24 BUN 17 Creatinine 0.48 L Estimated GFR > 60 BUN/Creatinine Ratio 35.4 H Glucose 104 Calcium 8.6 Magnesium 2.1 PFSH Medical History Atrophic vulvovaginitis Bilateral kidney stones Chicken pox (~194) Coronary artery disease (~2005) Headache (~2009) Hearing deficit History of heart attack History of kidney stones History of urinary incontinence (~1999) Hyperlipidemia Hypertension (~1979) Mass of left lung Mumps (~194) Osteoarthritis (~1999) Osteoporosis Ruptured tympanic membrane (~1989) Skin cancer (~2006) Tinnitus (~1979) Vision disorder Surgical History History of cataract removal with insertion of prosthetic lens (10/26/15) History of cystoscopy (~2012) History of eye surgery (~1979) History of knee replacement (~2017) History of urologic surgery (03/14/23) History of vein stripping (~1977) Status post arthroscopy (~01/2013) Status post colonoscopy (~12/2003) Status post dilation and curettage (~1957) Status post vaginal hysterectomy (~1978) Ureteral stone (~2014) Family History Father No problems noted. Grandfather No problems noted. Grandmother No problems noted. Mother No problems noted. Grandfather No problems noted. Grandmother No problems noted. Social History marital status: number of children: 3 household members: none lives independently: Yes caregiver/support person: Yes (son and daughter in law live across the street ) housing: house occupational status: unemployed (retired) Smoking Status: Former smoker alcohol intake: former substance use type: does not use caffeine: Yes Type(s) of exercise: bicycling and other frequency: 1-2 times per week duration: > 90 minutes/day Discharge Plan Discharge Plan Patient Disposition: Home Provider Discharge Comment: You were admitted to the hospital with a bacteria in your blood stream. This was also in your urine. Please continue 2 weeks of IV antibiotics at home. Dosing is every 4 hours. Please follow up with urology as an outpatient as well as PCP (please see pcp americo). Discharge orders & Medications Prescriptions: New ampicillin sodium 2 gram Recon Soln 2,000 mg IV Q4H 12 Days Qty: 72 0RF tramadol 50 mg Tablet 50 mg PO QID PRN (Reason: Pain, Moderate (4-6)) 7 Days Qty: 20 0RF Continued amlodipine 5 mg tablet See Rx Instructions .ROUTE .COMPLEX Qty: 90 3RF Dose Instruction: TAKE 1 TABLET BY MOUTH DAILY Rx Instructions: TAKE 1 TABLET BY MOUTH DAILY losartan 50 mg tablet See Rx Instructions .ROUTE .COMPLEX Qty: 90 3RF Dose Instruction: TAKE 1 TABLET BY MOUTH EVERY DAY Rx Instructions: TAKE 1 TABLET BY MOUTH EVERY DAY Restasis MultiDose 0.05 % drops See Rx Instructions .ROUTE .COMPLEX Rx Instructions: drop in each eye Qday multivitamin [Multiple Vitamins] tablet 1 tab PO DAILY Qty: 90 0RF acetaminophen 325 mg tablet 650 mg PO PRN PRN (Reason: Pain (Scale Score 4-6)) celecoxib 200 mg capsule 200 mg PO BID glucosamine HCl 1,500 mg PO BID MDD 3000 coenzyme Q10 [Ultra CoQ10] See Rx Instructions .ROUTE .COMPLEX Rx Instructions: 1 tablet Qday Follow up/Referrals: Hillary Whitten ARNP [Primary Care Provider] - 06/09/23 10:00 am (Appt:06/09 @ 10:00 with please arrive 15 min prior to your scheduled appointment time Hospital follow up, 2 weeks of IV antibiotic therapy. ) Discharge Health Status Multidrug resistant organism: No MDRO Diet/Activity/Treatments Diet: Diet as Tolerated and Regular Activity: As tolerated, no restrictions Skin/Wound/Dressing Care Report to your healthcare provider any signs of infection, such as:: chills, fever and night sweats Visit Report/Discharge Packet Instructions: Urinary Tract Infection, How to Use Antibiotics Wisely Stand Alone Forms: Patient Portal/API, Stroke Signs & Symptoms Discharge Data Primary Care Provider: Hillary Whitten Discharges patient from system. Discharge Date/Time: 06/07/23 11:11
--- NOTE | 2023-06-07 11:38 | PC.NURSE ---
PICC line left in place for home IV antibiotics. Discussed s/s of infection, medications, s/s of stroke, worsening symptoms, and follow up appts. pt has no further questions. Taken to private vehicle via wheelchair by RN.
--- NOTE | 2023-06-08 12:17 | CM.DPNOTE ---
Home health Received call from Ryne at [facility] asking for the HH order and F2F for this patient. There were no CM notes that indicated a referral had been made to [facility] Placed call to Chelo Spicer to discuss. Reviewed MCR choice list and she felt [facility] would work and requested HH RN/PT Therefore, completed F2F and the HH order next which was emailed to Ryne at [facility] today by RENETTA Mosley change management administrator [email or web address]
== END 2023-06-07 11:11 | disposition home or self-care (01) | DRG 690 ==
LOC: ED 14:24 → AC 15:23
PROVIDERS: Internal Medicine; Admitting Provider Internal Medicine; Emergency Provider Emergency Medicine; PCP Nurse Practitioner; Referring Provider Emergency Medicine; Visit Provider Internal Medicine
DX: N39.0 Urinary tract infection, site not specified (principal); J90 Pleural effusion, not elsewhere classified; I49.8 Other specified cardiac arrhythmias; I10 Essential (primary) hypertension; B95.2 Enterococcus as the cause of diseases classified elsewhere; E87.6 Hypokalemia; Z87.891 Personal history of nicotine dependence; Z98.890 Other specified postprocedural states
CPT/HCPCS: 0241U; 36415; 36569; 71045; 71275; 74176; 80048; 80053; 81001; 81003; 82550; 83605; 83690; 83735; 83880; 84145; 84484; 85025; 85027; 85610; 85730; 87040; 87077; 87086; 87185; 87186; 93005; 93306; 96365; 96375; 99284; 99285; J0290; J0696; J1642; J1644; J1885; J2405; Q9967

== ENCOUNTER → 2023-06-14 11:58 | Outpatient (CLI) | payer MEDICARE, SELFPAY ==
[2023-06-04 16:21] VITALS: BMI 24.7
[2023-06-14 12:47] LABS: Add Manual Diff / Slide Review NO; Basophils Absolute Auto 100 /uL (0-100); Basophils Percent Auto 0.8 % (0-2); Eosinophils Absolute Auto 200 /uL (0-450); Eosinophils Percent Auto 2.7 % (2-4); Hematocrit 34.2 % (36-46); Hemoglobin 11.5 g/dL (12.0-16.0); Lymphocytes Absolute Auto 2300 /uL (1100-4500); Lymphocytes Percent Auto 25.1 % (25-40); Mean Corpuscular HGB Conc 33.8 % (30-36); Mean Corpuscular Volume 88.8 fL (80-100); Monocytes Absolute Auto 1200 /uL (0-900); Monocytes Percent Auto 13.6 % (3-14); Neutrophils Absolute Auto 5200 /uL (1500-7000); Neutrophils Percent Auto 57.8 % (50-75); Platelet Count 557 X10^3/uL (150-400); Red Blood Cell Count 3.85 X10^6/uL (4.0-5.2); Red Cell Distribution Width 14.4 % (11.6-14.8); White Blood Cell Count 9.1 X10^3/uL (4.5-11.0)
[2023-06-14 13:23] LABS: Alanine Aminotransferase 24 IU/L (<35); Albumin 3.8 g/dL (3.5-5.0); Alkaline Phosphatase 97 U/L (38-126); Aspartate Aminotransferase 24 IU/L (14-36); BUN Creatinine Ratio 21.7 (6-22); Bilirubin Total 0.3 mg/dL (0.2-1.3); Blood Urea Nitrogen 15 mg/dL (7-17); Calcium 9.7 mg/dL (8.4-10.2); Carbon Dioxide 28 mmol/L (22-32); Chloride 103 mmol/L (98-107); Estimated Glomerular Filt Rate > 60 mL/min (>60); Globulin 3.7 g/dL (1.7-4.1); Glucose 127 mg/dL (80-110); HEMOLYSIS < 15 (0-50); Potassium 3.4 mmol/L (3.4-5.1); Sodium 139 mmol/L (137-145); Total Protein 7.5 g/dL (6.3-8.2)
== END ==
PROVIDERS: PCP Nurse Practitioner; Referring Provider Family Medicine; Visit Provider Family Medicine
DX: I10 Essential (primary) hypertension (principal); J90 Pleural effusion, not elsewhere classified; N39.0 Urinary tract infection, site not specified; R78.81 Bacteremia
CPT/HCPCS: 36415; 80053; 85025

== ENCOUNTER → 2023-07-04 09:13 | Outpatient (CLI) | payer MEDICARE, SELFPAY ==
[2023-06-04 16:21] VITALS: BMI 24.7
[2023-07-04 10:01] LABS: Appearance Urine UA CLOUDY; Bilirubin Urine UA 1+ (NEGATIVE); Color Urine UA YELLOW; Glucose Urine UA NEGATIVE (Negative); Ketones Urine UA 1+ (NEGATIVE); Leukocyte Esterase Urine UA 2+ (NEGATIVE); Nitrite Urine UA NEGATIVE (Negative); Occult Blood Urine UA 3+ (Negative); Protein Urine UA 2+ (Negative); Specific Gravity Urine UA 1.025 (1.000-1.035)
[2023-07-04 10:19] LABS: Bacteria Urine Many (>30); Calcium Oxalate Crystals Urine Few; RBC Urine 1-5/HPF (0-5/HPF); Squamous Epithelial Cell Urine 0-1 /HPF (0-5/HPF); WBC Urine >100/HPF (0-5/HPF); pH Urine UA 5.5 (4.5-8.0)
[2023-07-04 10:20] LABS: Culture Indicated Urine Specimen Cultured; Ictotest Urine Negative (Negative)
== END ==
PROVIDERS: PCP Nurse Practitioner; Referring Provider Family Medicine; Visit Provider Family Medicine
DX: R30.0 Dysuria (principal)
CPT/HCPCS: 81001; 87077; 87086; 87186

== ENCOUNTER → 2023-07-20 13:30 | Outpatient (CLI) | payer MEDICARE, SELFPAY ==
--- NOTE | 2023-07-20 13:32 | DI.RAD.S_ITS ---
PROCEDURE: XR KUB INDICATIONS: Follow-up kidney stones TECHNIQUE: One view of the abdomen acquired. COMPARISON: [facility], CR, XR KUB, 04/03/2023, 9:26. FINDINGS: Surgical changes and devices: Sacral spine neurostimulator is stable. Bowel: Bowel gas pattern is normal. Soft tissues: 6 millimeter calcification projects over the lower pole of the right kidney. 7 millimeter calcification projects over the midpole of left kidney. Visualized solid organ contours appear normal in size. Bones: No suspicious bony lesions. Spine degenerative disc disease and facet arthropathy. Convex right thoracolumbar spine scoliosis is stable. IMPRESSION: Bilateral renal stones. Dictated by: Deborah Duval MD, PhD on 07/20/2023 at 14:06 Approved by: Deborah Duval MD, PhD on 07/20/2023 at 14:07
== END ==
PROVIDERS: PCP Nurse Practitioner; Referring Provider Urology; Visit Provider Urology
DX: N20.0 Calculus of kidney (principal); N39.0 Urinary tract infection, site not specified; N95.2 Postmenopausal atrophic vaginitis
CPT/HCPCS: 74018; 81002; 99214

== ENCOUNTER → 2023-07-26 09:45 | Outpatient (CLI) | payer MEDICARE, SELFPAY ==
--- NOTE | 2023-07-26 09:46 | DI.RAD.S_ITS ---
PROCEDURE: XR KUB INDICATIONS: Kidney stones TECHNIQUE: One view of the abdomen acquired. COMPARISON: [facility], CR, XR KUB, 07/20/2023, 13:37. FINDINGS: Surgical changes and devices: Sacral spine neurostimulator, as before. Bowel: Bowel gas pattern is normal. Soft tissues: The previously noted 7 mm left renal stone is noted. The probable right renal stone is not well seen. Visualized solid organ contours appear normal in size. Bones: No suspicious bony lesions. IMPRESSION: Left middle pole stones seen. Right stone not seen on today's plain films. Dictated by: Viet Scott M.D. on 07/26/2023 at 14:45 Approved by: Viet Scott M.D. on 07/26/2023 at 14:46
== END ==
PROVIDERS: PCP Nurse Practitioner; Referring Provider Urology; Visit Provider Urology
DX: N13.2 Hydronephrosis with renal and ureteral calculous obstruction; N39.0 Urinary tract infection, site not specified
CPT/HCPCS: 74018

== ENCOUNTER → 2023-08-13 08:32 | Outpatient (CLI) | payer MEDICARE, SELFPAY ==
--- NOTE | 2023-08-13 08:34 | DI.RAD.S_ITS ---
PROCEDURE: XR KUB INDICATIONS: kidney stone TECHNIQUE: One view of the abdomen acquired. COMPARISON: [facility], CT, CT ABDOMEN PELVIS WO CON, 06/04/2023, 16:32. [facility], CR, XR KUB, 07/20/2023, 13:37. [facility], CR, XR KUB, 07/26/2023, 9:56. FINDINGS: Surgical changes and devices: A sacral stimulator is seen. Bowel: Bowel gas pattern is normal. There is a moderate volume of stool seen within the colon. Soft tissues: Nonobstructing left-sided kidney stones are seen that measure up to 7 mm. No definite right-sided kidney stones are seen on this plain film study. Bones: No suspicious bony lesions. Age-appropriate bony degenerative changes are seen. Mild dextroconvex scoliotic curvature is seen. IMPRESSION: Nonobstructing left-sided kidney stones are seen, with the largest stone measuring 7 mm. Dictated by: Harry Roberts M.D. on 08/13/2023 at 20:18 Approved by: Harry Roberts M.D. on 08/13/2023 at 20:20
== END ==
PROVIDERS: PCP Nurse Practitioner; Referring Provider Urology; Visit Provider Urology
DX: N20.2 Calculus of kidney with calculus of ureter (principal)
CPT/HCPCS: 74018

== ENCOUNTER → 2023-08-17 08:34 | Outpatient (CLI) | payer MEDICARE, SELFPAY ==
[2023-08-17 15:53] LABS: BUN Creatinine Ratio 36.9 (6-22); Blood Urea Nitrogen 24 mg/dL (7-17); Calcium 9.8 mg/dL (8.4-10.2); Carbon Dioxide 26 mmol/L (22-32); Chloride 107 mmol/L (98-107); Estimated Glomerular Filt Rate > 60 mL/min (>60); Glucose 89 mg/dL (80-110); HEMOLYSIS 43 (0-50); Potassium 4.2 mmol/L (3.4-5.1); Sodium 140 mmol/L (137-145)
== END ==
PROVIDERS: PCP Nurse Practitioner; Referring Provider Urology; Visit Provider Urology
DX: R31.29 Other microscopic hematuria (principal); N20.0 Calculus of kidney; R93.429 Abnormal radiologic findings on diagnostic imaging of unspecified kidney; Z87.442 Personal history of urinary calculi
CPT/HCPCS: 36415; 80048; 81002; 99214

== ENCOUNTER → 2023-08-18 13:41 | Outpatient (CLI) | payer MEDICARE, SELFPAY ==
--- NOTE | 2023-08-18 13:42 | DI.CT.S_ITS ---
PROCEDURE: CT ABDOMEN RENAL PROTOCOL INDICATIONS: Kidney stones question of left filling defect TECHNIQUE: Optional 5 mm thick noncontrast images acquired from the diaphragm to the iliac crests. After the administration of intravenous contrast, 5 mm thick images again acquired from the diaphragm to the iliac crests in the arterial and urographic phases. 5 mm thick coronal and sagittal reformats were then acquired. For radiation dose reduction, the following was used: automated exposure control, adjustment of mA and/or kV according to patient size. COMPARISON: [facility], CT, CT ABDOMEN PELVIS WO CON, 06/04/2023, 16:32. [facility], CT, CT ANGIO CHEST PE PROTOCOL, 06/03/2023, 20:52. FINDINGS: Image quality: Excellent. Lung bases: Lung bases are clear. There is a small chronic left pleural effusion with chronic mild pleural thickening. Heart size is normal. Genitourinary: Again noted is a pattern of punctate calcifications associated with the medullary pyramids bilaterally, in close proximity to the lumen of the renal collecting systems bilaterally. A definite intraluminal free renal calculus is not found, however. No filling defect is found within either collecting system, and there is no dilatation of the ureters in the portion of the abdomen included on this study. Other solid organs: Liver is normal in size and enhancement. Gallbladder again is seen to contain a peripherally calcified single moderate-sized gallstone, previously documented with no evidence of biliary distension or acute cholecystitis. Biliary system is non dilated. Pancreas enhances normally. Spleen is normal in size and enhancement. No adrenal nodules. Peritoneum and bowel: Unenhanced bowel loops are normal in wall thickness and caliber. No free fluid or air. Nodes and vessels: No retroperitoneal or mesenteric adenopathy by size criteria. Aorta and inferior vena cava are normal in caliber. Bones: No suspicious bony lesions. No vertebral body compression fractures. Miscellaneous: No ventral hernias. IMPRESSION: The pattern of bilateral punctate renal calcifications is suggestive of medullary calcinosis with a number of the calcifications extending to include the papilla. This brings these calcifications in close proximity to the collecting systems but a definite free intraluminal collecting system calculus is not seen. No urothelial nodularity or mass is found. Extrarenal pelvis is noted at each kidney. No ureteral dilatation is present. Please note that this study does not extend into the pelvis. Stable appearance of a previously documented peripherally calcified gallstone within the gallbladder lumen. No sign of biliary distension or acute cholecystitis. Small chronic left pleural effusion. Dictated by: Yobani Landis M.D. on 08/18/2023 at 15:54 Approved by: Yobani Landis M.D. on 08/18/2023 at 16:04
== END ==
PROVIDERS: PCP Nurse Practitioner; Referring Provider Urology; Visit Provider Urology
DX: N20.0 Calculus of kidney (principal); R31.29 Other microscopic hematuria; R93.429 Abnormal radiologic findings on diagnostic imaging of unspecified kidney; J90 Pleural effusion, not elsewhere classified; K80.20 Calculus of gallbladder without cholecystitis without obstruction
CPT/HCPCS: 74170; Q9967

== ENCOUNTER → 2023-10-25 12:53 | Outpatient (CLI) | payer MEDICARE, SELFPAY | PROVIDERS: PCP Nurse Practitioner; Visit Provider Urology | DX: D02.20 Carcinoma in situ of unspecified bronchus and lung (principal); N39.0 Urinary tract infection, site not specified; N20.0 Calculus of kidney; N95.2 Postmenopausal atrophic vaginitis; Z90.2 Acquired absence of lung [part of] | CPT/HCPCS: 81002; 87086; 99214 ==

== ENCOUNTER → 2023-11-03 13:50 | Outpatient (CLI) | payer MEDICARE, SELFPAY | PROVIDERS: PCP Nurse Practitioner; Visit Provider Urology | DX: N39.0 Urinary tract infection, site not specified (principal); N20.0 Calculus of kidney; R31.29 Other microscopic hematuria | CPT/HCPCS: 81002; 87086; 99214 ==

== ENCOUNTER → 2023-11-09 07:46 | Outpatient (CLI) | payer MEDICARE, SELFPAY ==
--- NOTE | 2023-11-09 | DI.CT.S_ITS ---
PROCEDURE: CT CHEST W CON INDICATIONS: PRIMARY CANCER OF LEFT LOWER LOBE OF LUNG TECHNIQUE: After the administration of intravenous contrast, 5 mm thick sections acquired from the pulmonary apices to the posterior costophrenic angles. 1 mm axial lung, 5 mm thick coronal and sagittal reformats and 7 mm axial MIP were acquired. For radiation dose reduction, the following was used: automated exposure control, adjustment of mA and/or kV according to patient size. COMPARISON: [facility], CT, CT ANGIO CHEST PE PROTOCOL, 06/03/2023, 20:52. [facility], CT, CT CHEST W CON, 04/13/2023, 13:47. [facility], CT, CT ABDOMEN RENAL PROTOCOL, 08/18/2023, 13:53. FINDINGS: Image quality: Diagnostic. Lower Neck: No enlarged lymph nodes. Thyroid: No thyroid nodules which require sonographic follow up, per consensus guidelines. Axillae: No enlarged lymph nodes. Chest Wall: Unremarkable. Bones: Age-appropriate bony degenerative changes are seen. Accentuated thoracic kyphosis is seen. Lungs and Pleura: Left lower lobectomy change is seen. No findings of local recurrence can be seen. Mild areas of subpleural fibrotic/scarring change can be seen involving both lungs. Heart: Heart size is normal. No pericardial effusion. Thoracic Vessels: The aorta and pulmonary arteries demonstrate normal size. No findings of pulmonary embolism can be seen. Mediastinum and Zhane: No enlarged lymph nodes. Esophagus: No wall thickening. There is a small hiatal hernia. Upper Abdomen: Nonobstructing bilateral renal stones are seen. The visualized portions of the upper abdominal structures are otherwise unremarkable for imaging technique. IMPRESSION: Left lower lobectomy change, without local recurrence. No findings of metastatic disease can be seen. No enlarged mediastinal lymph nodes are seen. No suspicious pulmonary nodules are seen. Additional findings: Small hiatal hernia Nonobstructing bilateral renal stones Dictated by: Harry Roberts M.D. on 11/09/2023 at 11:47 Approved by: Harry Roberts M.D. on 11/09/2023 at 11:51
[2023-11-09 08:20] LABS: Estimated Glomerular Filt Rate > 60 mL/min (>60)
== END ==
LOC: CT 07:47
PROVIDERS: Radiology Diagnostic Radiology; PCP Nurse Practitioner; Referring Provider Internal Medicine Hematology & Oncology; Visit Provider Internal Medicine Hematology & Oncology
DX: C34.32 Malignant neoplasm of lower lobe, left bronchus or lung (principal); N95.2 Postmenopausal atrophic vaginitis; K44.9 Diaphragmatic hernia without obstruction or gangrene; N20.0 Calculus of kidney
CPT/HCPCS: 36415; 71260; 82565; Q9967

== ENCOUNTER 2023-11-14 06:35 | Day surgery (SDC) | payer MEDICARE, SELFPAY ==
[2023-11-13 16:47] VITALS: BMI 24.1
[2023-11-14] VITALS (7 sets, daily range): BP systolic 121–167; BP diastolic 71–90; PULSE 59–69; RESP 16–96; TEMP 36.2–36.4; O2SAT 96–100; BMI 24.1
--- NOTE | 2023-11-14 07:19 | SUR.OPER ---
Lithotomy on padded ESWL bed, head on pillow, arms tucked at patients side and padded. Legs secured in padded stirrups.
[2023-11-14] MEDS: LACTATED RINGERS 1,000 ML 42 ML IV (07:30)
--- NOTE | 2023-11-14 07:52 | PM.PREOP ---
Pre-operative Note COVID-19 COVID-19 status: Not tested Interval Note History & Physical reviewed/Exam performed by Physician: Yes Changes to H&P: No
[2023-11-14] MEDS: CEFAZOLIN 2 GM/100 ML PREMIX 100 ML IV (08:15)
--- NOTE | 2023-11-14 08:42 | PM.OP.1 ---
Procedure & Clinicians Procedure: Left extracorporeal shockwave lithotripsy with cystoscopy and left ureteral stent placement Same procedure as scheduled: Yes Indications: This 88-year-old female has known stones. She presented with bilateral stones and had the right-sided stones treated. She also has had recurring urinary tract infections and infectious he is has felt the stones that remained in her left kidney might be contributing to her persistent urinary tract infections and requested that these stones be treated the patient presents this time for the seizure. Surgeon: Masoud Klein Click Yes if Unassisted: Yes Anesthesia Type: General Operative Notes Findings: Findings: At cystoscopy the external genitalia exhibited findings consistent with atrophic vaginitis. Urethral meatus was normal the urethra is normal along its length. Ureteral orifices in normal position with clear efflux. There was some mild trabeculation within the bladder the mucosa was otherwise normal. Two stones were noted in the mid to upper left kidney. These were treated and at the end of the procedure were no longer visible via fluoroscopy. The patient did have a 7 [place] by multilink stent placed in the left collecting system without a string. There were no other notable findings. Closure Type: not applicable Specimen(s): none sent Applied: other (Seven [place] by multi length ureteral stent left side no string) Estimated Blood Loss (mL): 0 Blood products transfused: none Procedure in detail: Procedure in detail: After informed consent was obtained, the patient was identified and brought to the operating room where she was placed in a supine position on the Lithotripter. Once there anesthesia was induced and maintained. Ensuring an adequate level of anesthesia the patient was transitioned to the lithotomy position where she was prepped, draped, prepared for Transurethral procedure as well as lithotripsy. After prepping, draping, ensuring an adequate level of anesthesia, time-out and administration of antibiotics a 22 [place] cystoscope was passed through the urethra into the bladder where cystoscopy was performed. The left orifice was once again identified and a hyper guidewire passed up into the collecting system under fluoroscopic visualization. The stent was then passed in a coaxial fashion over the wire positioned in the renal pelvis under fluoroscopic visualization and in the bladder under direct vision. With the stent in good position the nylon harness was removed in the stent left in good position. At this point the bladder was drained the scope was removed and the patient went on to lithotripsy. The upper stone was targeted via the imaging system and received 500 shockwave at level 7 with periodic reimaging and re localization to ensure maximal energy delivery to the stone at 500 shockwave the shockwave head was rotated out a fluoroscopy performed the stone was no longer visualized attention was then turned to the lower stone which was once again targeted via the imaging system receiving shocks at level 7 for a total of 500 shocks. At this point it also appeared to have been well treated the shockwave head was rotated out fluoroscopy performed revealing both stones to have been well fragmented. At this point the patient was awakened having tolerated the procedure well transferred to the postanesthesia care unit for recovery to be discharged to home after recovery. There were no complications Complications: none Post-operative Condition: stable Disposition: PACU Plan for aftercare: Follow-up my office 10-14 days with vinay GODOY
== END 2023-11-14 09:46 | disposition home or self-care (01) ==
PROVIDERS: PCP Nurse Practitioner; Referring Provider Urology; Visit Provider Urology
PROC: (CPT 50590; principal; 2023-11-14 07:45)
DX: N20.0 Calculus of kidney (principal)
CPT/HCPCS: 50590; 52332; J0690; J2704; J3010

== ENCOUNTER → 2023-11-22 09:15 | Outpatient (CLI) | payer MEDICARE, SELFPAY ==
[2023-11-22 09:49] LABS: Appearance Urine UA CLOUDY; Bilirubin Urine UA 2+ (NEGATIVE); Color Urine UA BROWN; Glucose Urine UA NEGATIVE (Negative); Ketones Urine UA TRACE (NEGATIVE); Leukocyte Esterase Urine UA 2+ (NEGATIVE); Nitrite Urine UA POSITIVE (Negative); Occult Blood Urine UA 3+ (Negative); Protein Urine UA 3+ (Negative); Specific Gravity Urine UA 1.025 (1.000-1.035); pH Urine UA 6.5 (4.5-8.0)
[2023-11-22 09:53] LABS: Urine Volume 10mL (spun)
[2023-11-22 09:54] LABS: Bacteria Urine Moderate (10-30); Culture Indicated Urine Specimen Cultured; RBC Urine >100/HPF (0-5/HPF); Squamous Epithelial Cell Urine 1-5 /HPF (0-5/HPF); WBC Urine 5-10/HPF (0-5/HPF)
[2023-12-08 01:06] LABS: Size 6x3 mm (.)
== END ==
PROVIDERS: PCP Nurse Practitioner; Visit Provider Urology
DX: N20.0 Calculus of kidney (principal); N39.0 Urinary tract infection, site not specified; N13.30 Unspecified hydronephrosis; N20.1 Calculus of ureter; Z87.442 Personal history of urinary calculi
CPT/HCPCS: 81001; 82365; 87077; 87086; 87186

== ENCOUNTER → 2023-11-23 08:01 | Outpatient (CLI) | payer MEDICARE, SELFPAY ==
--- NOTE | 2023-11-23 08:04 | DI.RAD.S_ITS ---
PROCEDURE: XR KUB INDICATIONS: Kidney stone TECHNIQUE: One view of the abdomen acquired. COMPARISON: [facility], CR, XR KUB, 08/13/2023, 9:08. [facility], CR, XR KUB, 07/26/2023, 9:56. FINDINGS: Sacral stimulator device again noted. Double-j catheter projects over the left flank. Bowel: Bowel gas pattern is normal. Soft tissues: No suspicious abdominal calcifications. Visualized solid organ contours appear normal in size. Multiple phleboliths are again noted. Bones: degenerative changes of the spine IMPRESSION: NEW Double-j catheter projecting over the left retroperitoneum Left-sided kidney stones measuring up to 7 mm seen on prior study projecting over the left KIDNEY are no longer definitely visualized. Dictated by: Tyler Reaves M.D. on 11/23/2023 at 12:50 Approved by: Tyler Reaves M.D. on 11/23/2023 at 12:55
== END ==
PROVIDERS: PCP Nurse Practitioner; Referring Provider Urology; Visit Provider Urology
DX: N39.0 Urinary tract infection, site not specified; R31.29 Other microscopic hematuria; N13.4 Hydroureter; N13.30 Unspecified hydronephrosis; N20.2 Calculus of kidney with calculus of ureter; Z96.0 Presence of urogenital implants
CPT/HCPCS: 74018

== ENCOUNTER → 2023-11-24 08:12 | Outpatient (CLI) | payer MEDICARE, SELFPAY ==
[2023-11-24 09:35] LABS: Appearance Urine UA SL CLOUDY; Bilirubin Urine UA NEGATIVE (NEGATIVE); Color Urine UA ORANGE; Glucose Urine UA NEGATIVE (Negative); Ketones Urine UA NEGATIVE (NEGATIVE); Leukocyte Esterase Urine UA 2+ (NEGATIVE); Nitrite Urine UA NEGATIVE (Negative); Occult Blood Urine UA 3+ (Negative); Protein Urine UA 2+ (Negative); Urobilinogen Urine UA 0.2 E.U./dL (0.2)
[2023-11-24 09:40] LABS: Urine Volume 10mL (spun); pH Urine UA 6.5 (4.5-8.0)
[2023-11-24 09:44] LABS: Bacteria Urine None Seen; Culture Indicated Urine Specimen Cultured; RBC Urine >100/HPF (0-5/HPF); Squamous Epithelial Cell Urine 0-1 /HPF (0-5/HPF); WBC Urine 10-30/HPF (0-5/HPF)
== END ==
PROVIDERS: PCP Nurse Practitioner; Visit Provider Urology
DX: R31.29 Other microscopic hematuria (principal); N20.0 Calculus of kidney
CPT/HCPCS: 81001; 87086

== ENCOUNTER → 2023-11-28 09:08 | Outpatient (CLI) | payer MEDICARE, SELFPAY ==
[2023-11-28 09:28] LABS: Bilirubin Urine UA 2+ (NEGATIVE); Glucose Urine UA NEGATIVE (Negative); Ketones Urine UA TRACE (NEGATIVE); Leukocyte Esterase Urine UA 2+ (NEGATIVE); Nitrite Urine UA NEGATIVE (Negative); Occult Blood Urine UA 3+ (Negative); Protein Urine UA 3+ (Negative); Specific Gravity Urine UA 1.025 (1.000-1.035)
[2023-11-28 09:30] LABS: Appearance Urine UA TURBID; Color Urine UA BROWN; RBC Urine >100/HPF (0-5/HPF); Urine Volume 10mL (spun); pH Urine UA 6.5 (4.5-8.0)
[2023-11-28 09:31] LABS: Bacteria Urine Occasional (0-1); Culture Indicated Urine Specimen Cultured; Squamous Epithelial Cell Urine None Seen (0-5/HPF); Transitional Epi Cells Urine 0-1/HPF (0-5/HPF); WBC Urine 1-5/HPF (0-5/HPF)
== END ==
PROVIDERS: PCP Nurse Practitioner; Visit Provider Urology
DX: N39.0 Urinary tract infection, site not specified (principal); R31.29 Other microscopic hematuria
CPT/HCPCS: 52310; 81001; 87086

== ENCOUNTER → 2023-12-06 08:37 | Outpatient (CLI) | payer MEDICARE, SELFPAY ==
--- NOTE | 2023-12-06 08:38 | DI.RAD.S_ITS ---
PROCEDURE: XR KUB INDICATIONS: Follow-up kidney stones TECHNIQUE: One view of the abdomen acquired. COMPARISON: Left kidney. Faint calcification is present overlying the right kidney. It is noted multiple calcifications were present within the kidneys bilaterally on CT dated 10/18/2019 3. [facility], CT, CT ABDOMEN RENAL PROTOCOL, 08/18/2023, 13:53. Right kidney [facility], CR, XR KUB, 11/23/2023, 8:11. FINDINGS: Surgical changes and devices: Stimulator is unchanged. Interval removal of left ureterovesicular stent. Bowel: Bowel gas pattern is normal. Soft tissues: There are 2 focal calcifications overlying the left renal shadow. Faint calcification is noted overlying the right renal shadow. Visualized solid organ contours appear normal in size. Bones: No suspicious bony lesions. Degenerative changes are present in the lumbar spine. IMPRESSION: Calcifications overlying the kidneys as above. Dictated by: Clara Lopez M.D. on 12/06/2023 at 14:45 Approved by: Clara Lopez M.D. on 12/06/2023 at 14:50
== END ==
PROVIDERS: PCP Nurse Practitioner; Referring Provider Urology; Visit Provider Urology
DX: N28.89 Other specified disorders of kidney and ureter (principal); Z87.442 Personal history of urinary calculi
CPT/HCPCS: 74018

== ENCOUNTER → 2023-12-08 09:46 | Outpatient (CLI) | payer MEDICARE, SELFPAY ==
[2023-12-08 10:57] LABS: Calcium 10.2 mg/dL (8.4-10.2); Phosphorous 4.2 mg/dL (2.8-4.1); Uric Acid 2.6 mg/dL (2.5-6.2)
[2023-12-14 09:13] LABS: Parathyroid Hormone, Intact 35 pg/mL (15-65)
== END ==
PROVIDERS: PCP Nurse Practitioner; Referring Provider Urology; Visit Provider Urology
DX: N20.0 Calculus of kidney (principal); N39.0 Urinary tract infection, site not specified; N13.30 Unspecified hydronephrosis; N95.2 Postmenopausal atrophic vaginitis; R39.9 Unspecified symptoms and signs involving the genitourinary system; Z87.442 Personal history of urinary calculi; Z87.440 Personal history of urinary (tract) infections
CPT/HCPCS: 36415; 81002; 82310; 83970; 84100; 84550; 99213

== ENCOUNTER → 2023-12-11 11:14 | Outpatient (CLI) | payer MEDICARE, SELFPAY ==
[2023-12-11 13:05] LABS: Phosphorous 3.9 mg/dL (2.8-4.1)
== END ==
PROVIDERS: PCP Nurse Practitioner; Referring Provider Urology; Visit Provider Urology
DX: N20.0 Calculus of kidney (principal); Z87.442 Personal history of urinary calculi
CPT/HCPCS: 36415; 84100

== ENCOUNTER → 2024-02-22 08:04 | Outpatient (CLI) | payer MEDICARE, SELFPAY ==
[2024-02-22 09:50] LABS: Add Manual Diff / Slide Review NO; Basophils Absolute Auto 0 /uL (0-100); Basophils Percent Auto 0.5 % (0-2); Eosinophils Absolute Auto 0 /uL (0-450); Eosinophils Percent Auto 0.7 % (2-4); Hematocrit 36.8 % (36-46); Hemoglobin 12.2 g/dL (12.0-16.0); Lymphocytes Absolute Auto 1700 /uL (1100-4500); Lymphocytes Percent Auto 25.8 % (25-40); Mean Corpuscular HGB Conc 33.2 % (30-36); Mean Corpuscular Hemoglobin 30.7 PG (26-34); Mean Corpuscular Volume 92.2 fL (80-100); Monocytes Absolute Auto 600 /uL (0-900); Monocytes Percent Auto 8.4 % (3-14); Neutrophils Absolute Auto 4400 /uL (1500-7000); Neutrophils Percent Auto 64.6 % (50-75); Platelet Count 318 X10^3/uL (150-400); Red Blood Cell Count 3.99 X10^6/uL (4.0-5.2); Red Cell Distribution Width 13.5 % (11.6-14.8); White Blood Cell Count 6.7 X10^3/uL (4.5-11.0)
[2024-02-22 10:21] LABS: HEMOLYSIS < 15 (0-50); Iron 86 ug/dL (37-170)
[2024-02-22 10:26] LABS: Appearance Urine UA CLEAR; Bilirubin Urine UA NEGATIVE (NEGATIVE); Color Urine UA YELLOW; Glucose Urine UA NEGATIVE (Negative); Ketones Urine UA NEGATIVE (NEGATIVE); Leukocyte Esterase Urine UA 1+ (NEGATIVE); Nitrite Urine UA NEGATIVE (Negative); Occult Blood Urine UA NEGATIVE (Negative); Protein Urine UA NEGATIVE (Negative); Urobilinogen Urine UA 0.2 E.U./dL (0.2)
[2024-02-22 10:27] LABS: Alanine Aminotransferase 21 IU/L (<35); Albumin Globulin Ratio 1.2 (1.0-2.8); Alkaline Phosphatase 90 U/L (38-126); Aspartate Aminotransferase 31 IU/L (14-36); BUN Creatinine Ratio 22.4 (6-22); Bilirubin Total 0.5 mg/dL (0.2-1.3); Blood Urea Nitrogen 19 mg/dL (7-17); Calcium 9.2 mg/dL (8.4-10.2); Carbon Dioxide 29 mmol/L (22-32); Chloride 106 mmol/L (98-107); Cholesterol 192 mg/dL (140-199); Estimated Glomerular Filt Rate > 60 mL/min (>60); Globulin 3.4 g/dL (1.7-4.1); Glucose 127 mg/dL (80-110); HDL Cholesterol 61 mg/dL (40-60); HEMOLYSIS < 15 (0-50); LDL Cholesterol Calculated 102 mg/dL (<100); Potassium 4.3 mmol/L (3.4-5.1); Sodium 141 mmol/L (137-145); Total Protein 7.4 g/dL (6.3-8.2); Triglycerides 147 mg/dL (35-150)
[2024-02-22 10:28] LABS: Urine Volume 10mL (spun); pH Urine UA 6.5 (4.5-8.0)
[2024-02-22 10:31] LABS: Percent Iron Saturation 25 % (15-50); Total Iron Binding Capacity 342 ug/dL (265-497); Transferrin 263 mg/dL (206-381)
[2024-02-22 10:33] LABS: Bacteria Urine None Seen; RBC Urine None Seen (0-5/HPF); Squamous Epithelial Cell Urine 0-1 /HPF (0-5/HPF); WBC Urine 1-5/HPF (0-5/HPF)
[2024-02-22 10:34] LABS: Culture Indicated Urine Specimen Cultured
[2024-02-22 10:36] LABS: Free T3, Triiodothyronine Free 4.66 pg/mL (2.77-5.27); Free T4, Direct Thyroxine 0.79 ng/dL (0.78-2.19)
[2024-02-22 10:50] LABS: Thyroid Stimulating Hormone 1.62 uIU/mL (0.47-4.68)
[2024-02-22 11:06] LABS: Microalbumin Urine Random 1.5 mg/dL (0-1.6)
[2024-02-22 11:13] LABS: Vitamin B12 628 pg/mL (239-931)
== END ==
PROVIDERS: Urology; PCP Nurse Practitioner; Referring Provider Nurse Practitioner; Visit Provider Nurse Practitioner
DX: I10 Essential (primary) hypertension (principal); E78.5 Hyperlipidemia, unspecified; N39.0 Urinary tract infection, site not specified; R30.0 Dysuria; Z79.899 Other long term (current) drug therapy; Z86.79 Personal history of other diseases of the circulatory system
CPT/HCPCS: 36415; 80053; 80061; 81001; 82043; 82570; 82607; 83540; 83550; 84439; 84443; 84481; 85025; 87086

== ENCOUNTER → 2024-03-11 12:46 | Outpatient (CLI) | payer MEDICARE, SELFPAY ==
--- NOTE | 2024-03-11 12:49 | DI.MG.S_ITS ---
BILATERAL DIGITAL SCREENING MAMMOGRAM 3D/2D WITH CAD: 03/11/2024 CLINICAL: Routine screening. Family history of breast cancer. Comparison is made to exams dated: 10/24/2020 mammogram, 09/12/2019 mammogram, and 09/08/2018 mammogram - [facility]. Both breasts are heterogeneously dense, which may obscure small masses (category c / 51-75% glandular tissue). Current study was also evaluated with a Computer Aided Detection (CAD) system. No significant masses, calcifications, or other findings are seen in either breast. There has been no significant interval change. IMPRESSION: NEGATIVE There is no mammographic evidence of malignancy. A 1 year screening mammogram is recommended. This exam was interpreted at Station ID: [id number]. NOTE: For mammograms, a report in lay terms will be sent to the patient. Approximately 15% of breast malignancies will not be visualized mammographically. In the management of a palpable breast mass, a negative mammogram must not discourage biopsy of a clinically suspicious lesion. Electronically Signed By: Robert zimmer/josh:03/13/2024 09:51:56 copy to: Tacho Hampton letter sent: Normal Exam ACR BI-RADS Category 1: Negative [id number]
--- NOTE | 2024-03-11 12:49 | DI.RAD.S_ITS ---
PROCEDURE: XR DEXA AXIAL SKELETON INDICATIONS: osteoporosis COMPARISON: [facility], , DEXA AXIAL SKELETON, 11/10/2017, 14:24. FINDINGS: Lumbar Spine: L1-L3. Bone mineral density 0.836 g/cm2, T score -1.7. Left Hip: Bone mineral density 0.540 g/cm2, T score -3.3. Left Femoral Neck: Bone mineral density 0.517 g/cm2, T score -3.0. Right Hip: Bone mineral density 0.516 g/cm2, T score -3.5. Right Femoral Neck: Bone mineral density 0.519 g/cm2, T score -3.0. Fracture Risk Calculation (when applicable): 10-year fracture risk of a major osteoporotic fracture 18% and of a hip fracture 7.2%. (T score greater or equal to -1.0 to: NORMAL) (T score from -1.1 to -2.4: OSTEOPENIA) (T score less than or equal to -2.5: OSTEOPOROSIS) IMPRESSION: Osteoporosis. Follow-up guidelines as follows: Osteoporosis: Consider a repeat DEXA and Vertebral Fracture Assessment (VFA) exam in 2 years or sooner if medically necessary, to reassess this patient's status. Osteopenia: Consider a repeat DEXA in 2-3 years to reassess this patient's status, or if there is a new clinical indication. Normal: Consider a repeat DEXA in 5 years or sooner, or if there is a new clinical indication. All treatment decisions require clinical judgment and consideration of individual patient factors, including patient preferences, comorbidities, previous drug use, risk factors not captured in the FRAX model (e.g., frailty, falls, vitamin D deficiency, increased bone turnover, interval significant decline in bone density ) and possible under- or over-estimation of fracture risk by FRAX. In addition, the NOF Guide recommends that FDA-approved medical therapies be considered in postmenopausal women and men age >= 50 years with a: * Hip or vertebral (clinical or morphometric) fracture * T-score of <=-2.5 at the spine or hip * Ten-year fracture probability by FRAX of >= 3% for hip fracture or >=20% for major osteoporotic fracture. People with diagnosed cases of osteoporosis or at high risk for fracture should have regular bone mineral density tests. For patients eligible for Medicare, routine testing is allowed once every 2 years. The testing frequency can be increased to one year for patients who have rapidly progressing disease, those who are receiving or discontinuing medical therapy to restore bone mass, or have additional risk factors. Dictated by: Hermes Ramos M.D. on 03/11/2024 at 17:39 Approved by: Hermes Ramos M.D. on 03/11/2024 at 17:41
== END ==
LOC: RAD 12:47
PROVIDERS: PCP Nurse Practitioner; Referring Provider Nurse Practitioner; Visit Provider Nurse Practitioner
DX: Z12.31 Encounter for screening mammogram for malignant neoplasm of breast (principal); Z80.3 Family history of malignant neoplasm of breast; R92.333 Mammographic heterogeneous density, bilateral breasts; M81.0 Age-related osteoporosis without current pathological fracture
CPT/HCPCS: 77063; 77067; 77080

== ENCOUNTER → 2024-03-12 15:29 | Outpatient (CLI) | payer MEDICARE, SELFPAY ==
[2024-03-11 15:31] VITALS: BMI 24.7
--- NOTE | 2024-03-12 15:30 | DI.CT.S_ITS ---
PROCEDURE: CT CHEST W CON INDICATIONS: lung cancer f/up TECHNIQUE: After the administration of intravenous contrast, 5 mm thick sections acquired from the pulmonary apices to the posterior costophrenic angles. 1 mm axial lung, 5 mm thick coronal and sagittal reformats and 7 mm axial MIP were acquired. For radiation dose reduction, the following was used: automated exposure control, adjustment of mA and/or kV according to patient size. COMPARISON: [facility], CT, CT CHEST W CON, 11/09/2023, 8:41. FINDINGS: Image quality: Diagnostic. Lower Neck: No enlarged lymph nodes. Thyroid: No thyroid nodules which require sonographic follow up, per consensus guidelines. Axillae: No enlarged lymph nodes. Chest Wall: Unremarkable. Bones: Unremarkable. Lungs and Pleura: No pneumothorax or pleural effusions. Left lower lobectomy. No evidence of local recurrence. Stable solid pulmonary nodules and juxtapleural nodules. No growing solid pulmonary nodule. Heart: Heart size is normal. No pericardial effusion. Thoracic Vessels: The aorta and pulmonary arteries demonstrate normal size. Mediastinum and Zhane: No enlarged lymph nodes. Esophagus: No wall thickening. No hiatal hernia. Upper Abdomen: Punctate right-sided nephrolithiasis is partially visualized IMPRESSION: Left lower lobectomy, without measurable disease. Dictated by: Raciel Cervantes M.D. on 03/12/2024 at 17:08 Approved by: Raciel Cervantes M.D. on 03/12/2024 at 17:11
== END ==
PROVIDERS: PCP Nurse Practitioner; Referring Provider Nurse Practitioner; Visit Provider Nurse Practitioner
DX: D02.20 Carcinoma in situ of unspecified bronchus and lung (principal); R91.8 Other nonspecific abnormal finding of lung field; N20.0 Calculus of kidney
CPT/HCPCS: 71260; Q9967

== ENCOUNTER → 2024-06-16 10:31 | Outpatient (CLI) | payer MEDICARE, SELFPAY ==
[2024-03-11 15:31] VITALS: BMI 24.7
--- NOTE | 2024-06-16 10:33 | DI.RAD.S_ITS ---
PROCEDURE: XR CHEST 2V INDICATIONS: cough R/O pneumonia. Hx lung CA, LLL lobectomy. CT 03/2024. TECHNIQUE: 2 views of the chest were acquired. COMPARISON: [facility], , XR CHEST FOR PICC 1V, 06/06/2023, 9:53. FINDINGS: Surgical changes and devices: None. Lungs and pleura: Lungs are clear. No pleural effusions or pneumothorax. Mediastinum: Mediastinal contours are normal. Heart size is normal. Bones and chest wall: No suspicious bony abnormalities. Soft tissues appear unremarkable. IMPRESSION: No acute cardiopulmonary abnormality is seen. No focal consolidation. Dictated by: Dylan Pichardo M.D. on 06/16/2024 at 10:04 Approved by: Dylan Pichardo M.D. on 06/16/2024 at 10:05
== END ==
PROVIDERS: PCP Family Medicine; Referring Provider Physician Assistant Medical; Visit Provider Physician Assistant Medical
DX: R05.9 Cough, unspecified (principal)
CPT/HCPCS: 71046

== ENCOUNTER → 2024-08-16 09:19 | Outpatient (CLI) | payer MEDICARE, SELFPAY ==
[2024-03-11 15:31] VITALS: BMI 24.7
[2024-08-16 11:10] LABS: Appearance Urine UA SL CLOUDY; Bilirubin Urine UA NEGATIVE (NEGATIVE); Color Urine UA YELLOW; Glucose Urine UA NEGATIVE (Negative); Ketones Urine UA TRACE (NEGATIVE); Leukocyte Esterase Urine UA NEGATIVE (NEGATIVE); Nitrite Urine UA NEGATIVE (Negative); Occult Blood Urine UA NEGATIVE (Negative); Protein Urine UA NEGATIVE (Negative); Specific Gravity Urine UA 1.015 (1.000-1.035); Urobilinogen Urine UA 0.2 E.U./dL (0.2)
[2024-08-16 11:12] LABS: pH Urine UA 6.5 (4.5-8.0)
[2024-08-16 11:36] LABS: Amorphous Sediment Urine 1+; Bacteria Urine None Seen; Culture Indicated Urine Cult Not Indicated; RBC Urine None Seen (0-5/HPF); Squamous Epithelial Cell Urine 0-1 /HPF (0-5/HPF); Urine Volume 10mL (spun); WBC Urine 0-1/HPF (0-5/HPF)
== END ==
PROVIDERS: Family Provider Family Medicine; PCP Family Medicine; Referring Provider Urology; Visit Provider Urology
DX: N39.0 Urinary tract infection, site not specified (principal)
CPT/HCPCS: 81001

== ENCOUNTER → 2024-12-17 07:24 | Outpatient (CLI) | payer MEDICARE, SELFPAY ==
[2024-03-11 15:31] VITALS: BMI 24.7
== END ==
PROVIDERS: Family Provider Family Medicine; PCP Family Medicine; Visit Provider Physician Assistant
DX: R30.0 Dysuria (principal)
CPT/HCPCS: 87077; 87086; 87186

== ENCOUNTER → 2025-03-17 14:20 | Outpatient (CLI) | payer MEDICARE, SELFPAY ==
[2024-03-11 15:31] VITALS: BMI 24.7
--- NOTE | 2025-03-17 14:22 | DI.MG.S_ITS ---
MM screening mammo BI: 03/17/2025. BI-RADS: 2 CLINICAL: 89-year old female for bilateral screening mammogram. No Tyrer-Cuzick risk score calculation due to patient's age being over 85 years old. No personal or first-degree family history of breast cancer. Current reported family history of breast cancer: paternal grandmother. PRIOR EXAMS: 03/11/2024, 10/24/2020, 09/12/2019, 09/08/2018. MAMMOGRAPHY TECHNIQUE: 2D and 3D (tomosynthesis) digital mammographic views obtained, with additional images as needed for full coverage. Current study was also evaluated with a Computer Aided Detection (CAD) system. DENSITY B. There are scattered areas of fibroglandular density. MAMMOGRAPHY FINDINGS Bilateral: Typically-benign vascular calcifications noted. IMPRESSION: * No evidence of malignancy with benign findings. RECOMMENDATIONS Bilateral * Annual screening mammography. OVERALL ASSESSMENT CATEGORY BI-RADS-2: Benign. The [employer] recommends annual screening mammography beginning at age 40 for women with average risk of breast cancer. ELECTRONICALLY SIGNED: Hermes Ramos M.D. on 03/18/2025 at 08:14:47 AM PT Interpreting Station ID: [id number]
== END ==
LOC: MAMMO 14:22
PROVIDERS: PCP Family Medicine; Referring Provider Family Medicine; Visit Provider Family Medicine
DX: Z12.31 Encounter for screening mammogram for malignant neoplasm of breast (principal); Z80.3 Family history of malignant neoplasm of breast
CPT/HCPCS: 77063; 77067

== ENCOUNTER → 2025-05-06 10:47 | Outpatient (CLI) | payer MEDICARE, SELFPAY ==
[2024-03-11 15:31] VITALS: BMI 24.7
--- NOTE | 2025-05-06 10:50 | DI.RAD.S_ITS ---
PROCEDURE: XR KUB INDICATIONS: Rule out recurrent stones TECHNIQUE: One view of the abdomen acquired. COMPARISON: [facility], CR, XR KUB, 11/26/2024, 7:39. FINDINGS: Stool gas pattern: Normal-no evidence of ileus or obstruction. No free intraperitoneal or extraperitoneal air. No gross evidence of ascites Soft tissues: A cm calcification overlies the mid left kidney which could represent a stone. There is also a 6 mm calcification overlying the right renal pelvis also possibly a stone. No definite stones overlying either ureter urinary bladder No soft tissue masses. Organs: No gross evidence for organomegaly. Left sciatic nerve stimulator stable position no complication IMPRESSION: Calcification overlying each kidney which may represent stones. Dictated by: Dandy Sweeney M.D. on 05/07/2025 at 10:20 Approved by: Dandy Sweeney M.D. on 05/07/2025 at 10:21
== END ==
PROVIDERS: PCP Family Medicine; Referring Provider Urology; Visit Provider Urology
DX: Z87.442 Personal history of urinary calculi (principal)
CPT/HCPCS: 74018

== ENCOUNTER → 2025-06-25 14:27 | Outpatient (CLI) | payer MEDICARE, SELFPAY ==
[2024-03-11 15:31] VITALS: BMI 24.7
[2025-06-25 16:43] LABS: Appearance Urine UA CLEAR; Bilirubin Urine UA NEGATIVE (NEGATIVE); Color Urine UA YELLOW; Glucose Urine UA NEGATIVE (Negative); Ketones Urine UA NEGATIVE (NEGATIVE); Leukocyte Esterase Urine UA NEGATIVE (NEGATIVE); Nitrite Urine UA NEGATIVE (Negative); Occult Blood Urine UA NEGATIVE (Negative); Protein Urine UA NEGATIVE (Negative); Specific Gravity Urine UA 1.010 (1.000-1.035); Urobilinogen Urine UA 0.2 E.U./dL (0.2)
[2025-06-25 17:02] LABS: pH Urine UA 5.5 (4.5-8.0)
[2025-06-25 17:04] LABS: Culture Indicated Urine Specimen Cultured
== END ==
PROVIDERS: PCP Family Medicine; Visit Provider Obstetrics & Gynecology Gynecology
DX: N39.41 Urge incontinence (principal); N81.11 Cystocele, midline
CPT/HCPCS: 81001; 87086